=== PATIENT | female | born 1970 | race Caucasian/White ===

== ENCOUNTER 2023-03-02 20:43 | Outpatient (OUT) | payer OTHER, SELFPAY ==
[2023-03-05 22:06] LABS: Age Gdln ACOG Testing Note (.); HPV Aptima Negative (Negative); IGP, Aptima HPV, rfx 16/18,45 Note (.)
== END 2023-03-02 20:44 | disposition home or self-care (01) ==
PROVIDERS: Visit Provider Obstetrics & Gynecology
DX: Z12.4 Encounter for screening for malignant neoplasm of cervix (principal)
CPT/HCPCS: 87624; G0145

== ENCOUNTER 2023-06-25 11:12 | Outpatient (OUT) | payer OTHER, SELFPAY ==
--- NOTE | 2023-06-25 11:19 | ECG_ITS ---
[facility] Test Date: 2023-06-25 Pat Name: LONNIE CARRERA Department: Room: - Gender: Female [employer]: : 1970 Requested By: ORIANA BONE Order Number: [id number] Reading MD: RENETTA HARO Measurements Intervals [place] Rate: 69 P: 46 VA: 172 QRS: -11 QRSD: 97 T: 29 QT: 374 QTc: 402 Interpretive Statements SINUS RHYTHM No previous ECG available for comparison Electronically Signed On 06-30-2023 6:53:17 EST by RENETTA HARO
== END 2023-06-25 11:13 | disposition home or self-care (01) ==
LOC: PST 11:14
PROVIDERS: Visit Provider Obstetrics & Gynecology
DX: Z01.810 Encounter for preprocedural cardiovascular examination (principal); R93.89 Abnormal findings on diagnostic imaging of other specified body structures; N93.9 Abnormal uterine and vaginal bleeding, unspecified
CPT/HCPCS: 93005

== ENCOUNTER 2023-07-02 07:57 | Day surgery (SDC) | payer OTHER, SELFPAY ==
[2023-06-25 11:47] VITALS: BP 128/75; PULSE 80; RESP 16; TEMP 36.4; O2SAT 98; BMI 29.0
[2023-07-02] VITALS (9 sets, daily range): BP systolic 97–128; BP diastolic 52–83; PULSE 76–102; RESP 14–19; TEMP 36.2–36.4; O2SAT 95–100; BMI 28.9
[2023-07-02 08:10] LABS: Basophils Absolute Auto 0.1 10^3/uL (0.0-0.1); Basophils Percent Auto 1.9 % (0.2-2.0); Eosinophils Absolute Auto 0.2 10^3/uL (0.0-0.7); Eosinophils Percent Auto 2.9 % (0.9-7.0); Hemoglobin 13.5 g/dL (12.0-16.0); Immature Granulocytes Abs Auto 0.01 10^3/uL (0.00-0.03); Immature Granulocytes Pct Auto 0.2 % (0.0-0.5); Lymphocytes Absolute Auto 1.5 10^3/uL (1.2-3.8); Lymphocytes Percent Auto 22.8 % (20.5-60.0); Mean Corpuscular HGB Conc 32.9 g/dL (29.9-35.2); Mean Corpuscular Hemoglobin 30.7 pg (26.7-34.0); Mean Corpuscular Volume 93.2 fL (81.0-99.0); Mean Platelet Volume 9.5 fL (9.5-13.5); Monocytes Absolute Auto 0.6 10^3/uL (0.3-0.8); Monocytes Percent Auto 9.5 % (1.7-12.0); Neutrophils Absolute Auto 4.1 10^3/uL (1.4-6.5); Neutrophils Percent Auto 62.7 % (43.0-75.0); Platelet Count 363 10^3/uL (150-450); Red Cell Distribution Width 12.6 % (11.0-15.0); White Blood Count 6.5 10^3/uL (4.0-11.0)
[2023-07-02] MEDS: LACTATED RINGER'S SOLUTION 1,000 ML 50 ML IV ×2 (08:23→10:52)
[2023-07-02 08:33] LABS: HCG Quantitative 8 mIU/mL
--- NOTE | 2023-07-02 10:03 | PC.NURSE ---
Dr. Millan aware of Quant level. Has been elevated in past for other surgeries per patient.
--- NOTE | 2023-07-02 10:50 | PM.ONB ---
Brief Operative Note Date of procedure: 07/02/23 Pre-op diagnosis: pmb Post-op diagnosis: same as pre-op Procedure: NAME OF PROCEDURE: [ D&c hysteroscopy] PROCEDURE: The patient was taken back to the Operating Room where she was prepped and draped in normal sterile fashion after being placed under general anesthesia without difficulty. She was also placed in the dorsal lithotomy position. A weighted speculum was placed in the patient?s vagina. The anterior lip of the cervix was identified and grasped with a single tooth tenaculum. The patient?s uterus was then sounded roughly to [? 8] cm. The patient was then gently dilated using Hegar dilators. The hysteroscope was passed through the patient?s cervix into the uterus. Both ostia were identified. fluffy appearing endometrium. No gross evidence of malignancy, no gross evidence of polyps or fibroids. . At that point, gentle curettage was performed until a gritty texture was noted. The endometrial curettings were sent out to pathology. The single tooth tenaculum was then removed from the patient's anterior lip of the cervix where excellent hemostasis was noted. All instruments were removed from the patient?s vagina. The patient tolerated the procedure well. Sponge, lap and needle counts were correct times two. The patient was taken to the Recovery Room in stable condition.Room in stable condition. Anesthesia: ANGELES Surgeon: Arley Millan Estimated blood loss (mL): 5 Pathology: other (endometrial currettings) Condition: stable Disposition: PACU
--- NOTE | 2023-07-02 12:12 | PC.NURSE ---
pt up to bathroom with minimal assistance,voids without difficulty.
== END 2023-07-02 12:20 | disposition home or self-care (01) ==
PROVIDERS: Visit Provider Obstetrics & Gynecology
PROC: (CPT 58558; principal; 2023-07-02 09:20)
DX: R93.89 Abnormal findings on diagnostic imaging of other specified body structures (principal); N93.9 Abnormal uterine and vaginal bleeding, unspecified; M79.7 Fibromyalgia; E78.00 Pure hypercholesterolemia, unspecified
CPT/HCPCS: 58558; 36415; 84702; 85025; 88305; J2704

== ENCOUNTER 2024-02-07 07:19 | Outpatient (OUT) | payer OTHER, SELFPAY ==
--- NOTE | 2024-02-07 07:23 | MM_ITS ---
Patient Name: LONNIE CARRERA MR#: [id number] : 1970 Exam Date: 02/07/2024 Ordering Doctor: DR Arley Millan . RADIOLOGY REPORT PROCEDURE: MM TOMOSYNTHESIS SCREENING BI COMPARISON: MG MAMM SCREEN 3D WILEY CAD, 01/20/2023. MG MAMM SCREEN 3D WILEY CAD, 01/06/2022. MG MAMM SCREEN 3D WILEY CAD, 12/10/2020. MG MAMM WILEY SCRN W CAD DIG, 05/09/2013. INDICATIONS: Screening mammogram Calculator Name NCI Breast Cancer Risk Assessment Tool 5 Year Breast Cancer Risk 0.80% Lifetime Breast Cancer Risk 5.50% Personal Breast Cancer No Personal Ovarian Cancer No Treatments None Family Cancers Father with lymphoma cancer at age 70. LOCATION: [facility] BREAST COMPOSITION: The breasts are heterogeneously dense,which may obscure small masses. FINDINGS: DIAGNOSTIC CATEGORY 1--NEGATIVE. RIGHT BREAST: No significant suspicious finding. No significant change has occurred. LEFT BREAST: No significant suspicious finding. No significant change has occurred. RECOMMENDATIONS: ROUTINE MAMMOGRAM AND CLINICAL EVALUATION IN 12 MONTHS. PLEASE NOTE: A NORMAL MAMMOGRAM DOES NOT EXCLUDE THE POSSIBILITY OF BREAST CANCER. A CLINICALLY SUSPICIOUS PALPABLE LUMP SHOULD BE BIOPSIED. Dictated by: Xavier Davison M.D. on 02/07/2024 at 14:10 Approved by: Xavier Davison M.D. on 02/07/2024 at 14:17
--- OUTSIDE RECORDS SUMMARY | 2024-02-07 07:23 | XMS_ITS ---
Patient Summarization (C-CDA 2.1 CCD) Created on: February 07, 2024 LONNIE CARRERA : 1970 Sex: Female Author Organization Sample organization Care Team Providers Care Outbound Call Center Representative Name Role Phone Alfonso Pinto Primary Care Provider Elvis Grayson Attending Unavailable SMITHA ., DR GASTELUM Attending Unavailable SMITHA ., DR GASTELUM Consulting Unavailable SMITHA ., DR GASTELUM Admitting Unavailable SMITHA ., DR GASTELUM Admitting Unavailable MUSCOGEE, DR CAMPBELL Primary Care Unavailable SMITHA ., DR GASTELUM Attending Unavailable SMITHA ., DR GASTELUM Consulting Unavailable MICHELLE VAUGHN Attending Unavailable BETTY URENA Attending Unavailable Allergies Allergy Classification Reported Allergen(s) Allergy Type Date of Onset Reaction(s) Facility Macrolides (antibiotic) (1 source) Clarithromycin Drug Allergy 12-02-19 14 Intolerance [facility] Sulfonamides (antibiotic) (1 source) Sulfonamides (Antibiotic) Drug Allergy 12-02-19 14 Other: See Comments [facility] (2 sources) Clarithromycin; Translations: [Biaxin] Drug Allergy [facility] (1 source) Sulfonamides (Antibiotic); Translations: [sulfa drugs] Propensity to adverse reactions (disorder) [facility] (1 source) topiramate; Translations: [Topamax] Drug Allergy [facility] (1 source) Sulfonamides (Antibiotic) Drug allergy (disorder) 06-27-20 15 [facility] Encounters Encounter Date Encounter Type Care Provider Facility Start: 01-31-2024 End: 01-31-2024 ambulatory BETTY URENA Not Available Start: 07-14-2023 End: 07-14-2023 ambulatory MICHELLE VAUGHN Not Available Start: 01-20-[address] ORIANA BONE . Facili ty:[facility] Start: 08-04-2022 End: 08-04-2022 Emergency department patient visit Elvis Grayson [place] [place]: 02-17-2022 End: 02-17-[address] ORIANA BONE . Facility: Start: 08-21-2021 ambulatory Elvis Grayson Facility:[facility] Start: 05-09-2014 End: 05-09-2014 Telephone encounter Sushil Thorpe (Hist) Joann Work Phone: Neurology Medications Completed/Discontinued Medications Medication Drug Class(es) Dates Sig (Normalized) Sig (Original) Calcium Carbonate (1 source) CALCIUM CARBONAT E (CALCIUM 600 ORAL) Take by mouth once daily. 0 Active Comment on above: Take by mouth once d aily. cholecalciferol 0.025 mg oral capsule (1 source) Vitamin D take 1 capsule by mouth once daily Cholecalciferol, Vitamin D3, (VITAMIN D) 1,000 unit cap Take 1,000 Units by mouth once daily. 0 Active Comment on above: Take 1,000 Units by mouth once daily. cyclobenzaprine hydrochloride 10 mg oral tablet (1 source) Muscle Relaxant cyclobenzaprine 10 mg tablet Take 10 mg by mouth as needed. 0 Active Comment on above: Take 10 mg by mouth as needed. ibuprofen 800 mg oral tablet (1 source) Nonsteroidal Anti-inflammatory Drug take 1 tablet by mouth once daily ibuprofen 800 mg tablet Take 800 mg by mouth once daily. 0 Active Comment on above: Take 800 mg by mouth once daily. loratadine 10 mg oral tablet (1 source) take 1 tablet by mouth once daily loratadine (CLARITIN) 10 mg tablet Take 10 mg by mouth once daily. 0 Active Comment on above: Take 10 mg by mouth once daily. Magnesium (1 source) Magnesium 500 mg tab Take by mouth twice daily. 0 Active Comment on above: Take by mouth twice daily. multivitamin tablet (1 source) multivitamin tab let Take 1 tablet by mouth once daily. Woman's One A Day once daily 0 Active Comment on above: Take 1 tablet by vania th once daily. Woman's One A Day once daily [place]-3 Fatty Acids-Vitamin E (FISH OIL) 1,000 mg cap (1 source) take 1 capsule by mouth twice daily [place]-3 Fatty Acids-Vitamin E (FISH OIL) 1,000 mg cap Take 1 capsule by mouth twice daily. 0 Active Comment on above: Take 1 capsule by [facility] twice daily. potassium gluconate 2.5 meq oral tablet (1 source) Potassium 99 mg tab Take by mouth once daily. Takes two once daily 0 Active Comment on above: Take by mouth once d aily. Takes two once daily VITAMIN B COMPLEX & VIT C NO.4 (SUPER B COMPLEX + C ORAL) (1 source) VITAMIN B COMPLE X & VIT C NO.4 (SUPER B COMPLEX + C ORAL) Take by mouth once daily. 0 Active Comment on above: Take by mouth once d aily. Payers Date Payer Category Payer Unknown 2013 Unknown HOSPITAL/MEDICAL GENERIC MEDICAL GENERIC [id number] 2013-2014 Indemnity [id number] 2013 Unknown MMO [employer]ZZM[employer] SUPER MED PLUS [id number] 2013-2019 PPO [id number] 1970 Unknown [id number] 1970 Unknown [id number] 1970 Unknown [id number] 1970 Unknown [id number] 1970 Unknown [id number] 1970 Unknown [id number] 1961 Private Health Insurance [id number] Plan of Treatment Date Care Activity Detail Author Start: 04-23-2021 Influenza vaccination INFLUENZA (Sea son Ended) [facility] Start: 2018 Screening for malign ant neoplasm of colon [facility] Start: 2018 SHINGRIX VACCINE (1 of 2) CHRISTIE GRIX VACCINE (1 of 2) [facility] Start: 2013 [facility] Start: 2013 LIPID SCREEN LIPID SCREEN [facility] Start: 2008 Mammography MAMMOGRAM [facility] Start: 1998 HPV TESTING HPV TESTING [facility] Start: 1989 PAP TESTING PAP TESTING [facility] Start: 1987 Urine microalbumin profile DTAP,TDAP ,TD (1 - Tdap) [facility] Start: 1986 HEPATITIS C SCREENING HEPATITIS C SC REENING [facility] Start: 1986 HIV SCREENING HIV SCREENING [facility] Start: 1980 Adult depression scr eening assessment DEPRESSION SCREENING [facility] Problems Problem Classification Problem Date Documented Date Episodic/Chronic Immunizations and screening for infectious disease (1 source) Encounter for screening for human papillomavirus (HPV); Translations: [ENC SCREENING HUMAN PAPILLOMAVIRUS] Onset: 02-19-2022 Episodic Other connective tissue disease (1 source) Fibromyalgia; Translations: [Fibromyalgia] Onset: 12-01-2013 12-01-2013 Episodic Other screening for suspected conditions (not mental disorders or infectious disease) (4 sources) Encounter for screening for malignant neoplasm of cervix; Translations: [ENC SCREENING MALIG NEOPLASM CERV] Onset: 02-17-2022 Episodic Results Test Name Value Interpretation Reference Range Facility MG MAMM SCREEN 3D WILEY CADon 01-20-2023 MG MAMM SCREEN 3D WILEY CAD Patient: LONNIE CARRERA Exam Date: 01/20/2023 : 1970 Gender:F Ordering : DR ORIANA BONE . Admission #: [id number] Family : Order #: [id number] CLICK HERE TO VIEW EXAM RADIOLOGY REPORT PROCEDURE: MAMMOGRAM SCREENING 3D BILATERAL CAD COMPARISON: MG MAMM SCREEN 3D WILEY CAD, 01/06/2022. MG MAMM SCREEN 3D WILEY CAD, 12/10/2020. MG MAMM SCREEN WILEY W CAD, 10/17/2019. DIGITIZED_MAMMO, 01/22/2009. INDICATIONS: Screening mammography Calculator Name NCI Breast Cancer Risk Assessment Tool 5 Year Breast Cancer Risk 0.70% Lifetime Breast Cancer Risk 5.60% Personal Breast Cancer No Personal Ovarian Cancer No Treatments None Family Cancers Father with lymphoma cancer at age 70. LOCATION: [facility] BREAST COMPOSITION: Heterogeneously dense,which may obscure small masses. FINDINGS: DIAGNOSTIC CATEGORY 1--NEGATIVE. RIGHT BREAST: No significant suspicious finding. No significant change has occurred. LEFT BREAST: No significant suspicious finding. No significant change has occurred. RECOMMENDATIONS: ROUTINE MAMMOGRAM AND CLINICAL EVALUATION IN 12 MONTHS. PLEASE NOTE: A NORMAL MAMMOGRAM DOES NOT EXCLUDE THE POSSIBILITY OF BREAST CANCER. A CLINICALLY SUSPICIOUS PALPABLE LUMP SHOULD BE BIOPSIED. Dictated by: Xavier Davison M.D. on 01/20/2023 at 13:56 Approved by: Xavier Davison M.D. on 01/20/2023 at 14:00 Normal [facility] C Urineon 08-06-2022 Bacteria identified Cx Nom (U) Microbiology PROCEDURE: Urine Culture [R1] SOURCE: U CleanCatch BODY SITE: COLLECTED DATE/TIME: 08/04/2022 10:55 EST RECEIVED DATE/TIME: 08/04/2022 11:42 EST START DATE/TIME: 08/04/2022 11:42 EST FREE TEXT SOURCE: Farrukh CABRERA, [place]. Farrukh CABRERA, [place] Thor[place]. FINAL REPORTS Final Report [] Verified Date/Time: 08/06/2022 13:06 EST >100,000 cfu/ml Enterococcus faecalis SUSCEPTIBILITY RESULTS LEGEND: S=Susceptible, N/R=Not Reported, Blank=Data not available, or drug not advisable or tested, I=Intermediate, ESBL=Extended spectrum beta-lactamase, R=Resistant, TFG=Thymidine-depende nt strain, [place]=Beta-lactamase positive, YAMILEX=mcg/m;(mg/L), S*=Predicted susceptible interp, R*=Predicted resistant interp Entfaeca Antibiotic YAMILEX Dilutn YAMILEX Interp Ampicillin <=2 S Ciprofloxacin <=1 S Daptomycin <=1 S Levofloxacin <=1 S Linezolid <=2 S Nitrofurantoin <=32 S Penicillin 2 S Rifampin <=1 S Tetracycline >8 R Vancomycin 2 S Performing Locations R1: This test was performed at: [facility], [address] [place] [address], [facility]- , , [facility] Comment on above: Performed By: #### 1 [id number], [id number] ####[place] [address] Coding Summary.on 08-06-2022 Coding Summary. [id number] G h0bWw+PGhlYWQ+CQ1FJPB oU08pkCTppA7CG0uIVB0T MBGJRGVBLL8EVG4vjOU1D JcdJ4OhxlVf SbkufRPmSV47JOx8ONY4y IkeZPsgzN2geWHtU1g2Rd GgGS19cB91QBjoYRWlFiQ 3LjZpbjsgbWFy M5ltOxFvxSHjApi+PHRhY mxlIHdpZHRoPScxMDAlJy YstGkaNZ4eQo7xXXJrBYQ vbGxhcHNlOiBj j2zjOHNqUGcoGY9ciBydG 0TdxLG1IMOmz4g4Vz87lR I+ZFHsOOA9sTkwGOjml85 8YjNpp4ljUSL2 rLEvSZciOWQ6U20ay9W1S HIhKLOsSXO5dIC1wU4tgS azftynF0SacKGaRfV0ZET 1iDUbxA1dwGgl ybacfJ2vJwm+O12JPT9CP QYDOJ5OPqw4O7NuXzhbbQ I+PE98IKYkXG21fDFhzDK ie1llyIc6GwVm WAFrZHV8aWtrCJjrl8OpE GSuI01crEWax2A2OJUaqZ mdoZAiLeCarBV8xH0vKRk nekxiy4zyvbgf Xnaxq9gebd47rX92D15sO VrgAXZiROW8YRKzFSQtsN exmf6zrB9rEd5+VLznx8e ut5ybaXm8JkUj IMJxqgEynGjlSGA6h6BwS e70D5EjlMffh1PeSng4ut 65fFYvk6N6pKX6RDqiBJY ruB5kGGocTzG8 OSOfUwMsxZ24aKVmDFhbF o0ebLkasDvvOL3yHCVoke seYGOntJ0rCWEtoKLpgSz tLW2jIDQxqsip t418FpPaRQK5EWWjxZIwA 3GreH3bQcNjZGOhFENpK4 OswPDjMNqtN985OLvyXoN 5HQXxunUzU6Iv HCNxxLheHnM6d7P9Uf9Wo 5AsoeevCQQ7NBpyRMZgBf E1GpRcRuB0S4XwGot5NJD vdOzlAZ8lA6Ba RXWdxfhhmpuxmID0BKNkW QAjpP09yQHtMDonCx8wh7 C8b049ASCfEUJezP61Mv8 udDogMTBwdCBU xO3qmdhff1xwqcvjCwKnU LMyIQv8XOv1NKIprLrfIw HaRLK2CyC7OMH0oITepS0 rlSfcxhpljQ2i Oyc+F80gnJ8oNPC3CEZ6t nefOAFpdsWcYP22LH71R4 RyPjwvdGFibGU+PGRpdiB xdEwiMK4lNrSa i8azh4MvAVisP6TvBFKoQ QkaApx5BXFeSWT0sAX4bT 2eRTAgMOrru9I8hBN3Y4N rrbTesb6bk9wn KFOoVVbkP77btBFzq7B5Q TEufGS2SOSzoFloQzQedV 93Oyc+BAKzsGhup4UzVlh dx9cnw5jlqPu7 WhRhIZHmccUjuLofTCS2x 9HnEz30J60bFFzjQXTpYD UiDRYzSUJhuXlbge8cyW5 wIi8+PGNvbCB3 rZQ8rR7iUGDcHgX7WZutY 103SqFuwWVlKmgqp9sdx5 gvrVc5AcDtGBMhfpGxfAy nJHE9e4QwMq83 U80oGNohQOYbZLIcSOTzS TQtxRyfak0ocU7sYm2+PC 3hd8uyof08fQ35gGO+PHR oWUD7wGtvABjk KARgtW2rKHxsNbU6BUCvO tWxtM06cNPoEEjfNv0fqM dusVcvCW8fZXHazboic47 7XzOtq0dxMQZf oJQzZRbdFJX4G97uh9F5R XQxETGkVKV5iWJ9iL0exV lnbjogbGVmdDsgdmVydGl yTAteDWbnZ992 IHRvcDsnPlBhdGllbnQgT yAcYAi3L2McJef7TRCjoM naCW8wwIRcTYcaNo8brQl haPdfKT3kDRXc cflsf025CnAsk6caPSPpk FOjABasPZU1G35tv8C3NW KiIHSzYJS7xEQ2mN3ugQm nbjogbGVmdDsg gxUvyCmgEMlhRClwV209A HRvcDsnPkJpcnRoIERhdG S4FM78WZ66mAAdw3O9bOY 9U6XzZOCbfvrs qpxrjCG3DFYbQCOjcQ60T d1jhGnjRc6iWAJmSEK8CF XxtKOuZ2JldL8xDgWcGLA bDCPsM0UvrSDp XWoaP256DVpzOuK2EHEdw lHqD4NdHQNeyLrfNtA4c1 B6Ez4AE9Y2VC87CB70oEW sq2E7dDL4E4Ac VMJwpqrundlemRI6MZGpV KYxiV51Vy4lzKvkHc3zTV DvOZD5YPBmxOByN6FdlV1 yOiAjMDAwMDAw A9IuxLSyHNohM689DRnvA gM0GPEhrdKmY3GeWJWreH ycHlD2h1I0Rv8KSLf0OF6 8YK35fZVxp6R9 mFU7M6WeJZKpgucrwsqkh BQ7CFPdRKHnnK23Kq3hpV yiYb9wBALtYZZ3IKHivJM pK8TacD1hFeLf OLKgNUQlS2WfpZXuISvcP 080PPtnRoD2EATjfnPbL5 YwOABndThoMhF9u4X0St4 HDBVbKL80OJH9 uEN1OH59KP16E8HcSokss GFibGU+PHRhYmxlIHdpZH RoPScxMDAlJyBzdHlsZT0 pUn0jZCGaRGAv fTrkoKJjBpAis6hgXZBoK IyjCG0xyVdjB1JzpVJ3PO Qvt5o8Ox76U58pG9HgmEV +PJNclJU7dHW4 fQ3mMeOhHhV7DQdgN386L fMocYPoGwfcs4ith5baiJ d5LhL9ADQygtAlhLgrCSR 6s8ZuCf77H84z IHdpZHRoPSIxNSUiIHZhb Boonf0gkN9cWg0+PGNvbC K0uZB0cF8qDhBxYcK3MFt vH179NcJshBUf Zxjpi0tmd6bpyDz4CmMyS DUqcyQrdZfbUIH5w6AjGc 29A3LvbYwnc2EnZly8ae1 9bKZeq0G8gZQ3 Z8PbYTEpovsaiPQazPwpS H0aVHGalkmlCTJxpS5wTH QuA2p6NwUsUeA1FRqtC6I vlwM3CAHixYEw IKwmSNF7N47hj3O2JVOeQ EUgWGF9tFS0qL6crTzdoz ogbGVmdDsgdmVydGljYWw mAHfpN654MMCj mGvfHYQtzL9zOMJpiIHqv EmfPR7dBEAcpuzhSicRKb 5FTExPLCBTSEVMTEVZIEw 3Q5QnDda3WWFo qXnoYG9uqFNnZWemUw1dk EyqyZnpUB1jJGXegghlHY YbpH6zNIQxcMJtlUrwRX1 nTCFinttry896 HlNbJLJ7JFCkoUVkU6Fkr U8zTjSzTKUtHNKtR4MbnL JrZOrlL197VJuaLqE9XQY dqmYxR8LxRWTw uAdcDkJ8r1Y6Cl6hHT4xX M3zNZT7LC00EQ52uIBgs2 F7hXK7B4ExPFDkrnokocv qnXY7VQNeSCFh aD94nXElFIkyTt8pn4C9m 332ZGSfCEIucZ25Pg6dhH xjNIJtpQPJjD9jhjdcg4x vcjogIzAwMDAw UAv0SPb5LPQjaIrbFsGjS AO0VfQ4GSM3wXSmqI7ljZ hjdmyjpJ4wNxn+NTQgWWV rppS1M2GaDwj6 PUYwhUheZO6sdSQvAXucD g8vdVkcoNobHX0mXNVuvf npZNFexK5gVKFcfTLyfVd pAL4tQUCgynaf d166UkCyNPR3GYNcdKVzL 0QpzG2tPwZmNAGvSKJpP2 IbzMWbRSgvO103AEmgYlK 7HXJzotXwW7Ru KXVbiFktIfG6d4D4Hk7DU U6wlCA2E5CcSss0JAXhaF vcOZ4qqVAmNAexQb9yrQb trQjdTW5vHOIc yqrxCRXhoT4yCIYpaWRuc KqxOZ8tMQNnsracj856Jt FcJEL1JAPjfBJvH1DawA1 yOiAjMDAwMDAw B3MsiIYkNHqhC780QVmtM lU6LQHyyqVrQ1FwCBWutQ ztSeL6n6B6Dq4XxVOuC7U dF1f9X3BtDijv dHI+OW00WFOpIF30jKRie VDeo7xgqAt5VzOzPBJpCX G3uXbuAHcmz2WvJQDlI81 feKSbg0Q5RBKz pMoxbPXvSqUngEP1yQ3uB Vqezheys5djnxxfZycbm8 eoqp59wT96H41iBWquTMS oPSIzMCUiIHZh rTtpkp7xlZ6eAl5+PGNvb CM7oIS8nW8pUqMdUcB1XX yjK266RhEcyHEcVklwv5r zn3iggSv3EoHe KVGeicLptOauEJN8x1BaE n58M64rWMmeLZQeOETjKD ZtJJKasCpofu8lkN6jWo2 +NS6py0fnvw31 yQ53nIC+VWGzXNJ4oTdbF YbwIEAibL6lKBtcGcB4XM DgHsTetH88zIQjZPpvZm8 ulJkcdXfuLT4m MUDfwpxuj126IzTcw3tqH LCdlECuOJjcMGC9V46bp3 W2HWAyLSXwDRB2lPO6hH3 hbGlnbjogbGVm dDsgdmVydGljYWwtYWxpZ 872VFOtzMvpAmRhxGDqI4 sgvcKRNS3zTkpjzNL+PHR mXXZ7tPraEVby CQMlwE2mWIRtI3e5FiNjX bN1OOeyC5YwdpV4NFKzoC FqUHJryMTRwT5bsjnpa8u vcjogIzAwMDAw VLs9TOr4JOEneQiePrWrS PW7KxW7TFK2cIJoaK9ssZ kxvurbjU3aMue+RklOOjw vdGQ+PHRkIHN0 sRabBSqyCCEuqW1bVOPjH 9v8VqHeJwU1ZUyqZ2Nbgy M7KJCrfIJmNSBeyPQGkD0 vpckov8raypxn GrFwXJTnCUe4XEd1ZQChp FgrHhNwBDH2YhO3TJW9mT EduC7uyFkbxxkusS9iSva +TVJOOjwvdGQ+ UYMtYKN9zQvqQTgoRWOji Z0yHUCzV5j6VwEzJmG2JC dbZ2TiehZ9IWYqtWSjMDK jdLGWhK5dbaru m8skfcmnFuHvSSHaNEd9K Gd5KSRhfUmdLzTwTCI3Wj L6BWE9jWOvnE3hhZxasxw iyG3aBfq+UGF5 QWX8UZ50DM51P6HqFtosw GFibGU+PHRhYmxlIHdpZH RoPScxMDAlJyBzdHlsZT0 oUc1fYZPgIKLw bGxh (more content not included)... Normal [facility] ED Note-Physicianon 08-05-20 ED Note-Physician Basic Information Time Seen: Chris Fallon DO 08/04/2022 09:36 Chief Complaint pt rpeort abdpain on and off for a month, but states she has had increasing pin. denies n/v/d but reports constipation. History of Present Illness 52-year-old female to the emergency department chief complaint of abdominal pain and lower cramping has been ongoing for the last month. She denies any nausea, vomiting diarrhea. She denies any fever, sweats, chills. She is eating without difficulty. She reports that she has been having intermittent bowel movements going as long as 5 days without a bowel movement. She denies any dysuria urgency. She is otherwise at baseline health. Review of Systems A 10 point review of systems is negative except as noted above. Medical and Surgical History: Reviewed and noted Social history: Lives at home Tobacco: Denies Physical Exam Vitals & Measurements T: 36.6 ?C(Tympanic) HR: 85(Monitored) RR: 16 BP: 129/78 SpO2: 99% HT: 162 cm WT: 80 kg BMI: 30.48 VITALS: I have reviewed the triage vital signs. GENERAL: Well developed, well appearing adult in no acute distress. NEURO: Alert and oriented. Moves all extremities. Face is symmetric and expressive. EYES: PERRL. No scleral icterus or conjunctival injection. No discharge. HENT: Normocephalic, atraumatic. Hearing is grossly intact. Nares grossly patent and without discharge. Mucous membranes moist. NECK: No JVD. Patient moves neck without restriction. CARDIO: Rhythm regular. Normal rate. No murmur, rub, or gallop. Pulses equal bilaterally in the upper and lower extremity. No lower extremity edema. PULM: Lungs clear to auscultation in all [place]. No wheezes, rales, or rhonchi. No conversational dyspnea. No splinting, stridor, or accessory muscle use. GI/: Abdomen is soft and non-tender. Mild distention. Normoactive bowel sounds. EXTREMITIES: Symmetric muscle bulk. No joint swelling. No clubbing, cyanosis, or deformity. SKIN: Warm and dry. Normal turgor. No rash or lesions appreciated. PSYCH: Mood, affect, and interaction is appropriate to the setting. Medical Decision Making 52-year-old female to the emergency department chief complaint of lower abdominal cramping on and off for the last month. Constipation for the last few days. Vital stable, patient is afebrile. Basic labs ordered. She declines pain medication. CT scan ordered. Lab work reviewed and unremarkable. CT scan consistent with constipation. Possible UTI. Will treat with MiraLAX and Macrobid. Follow-up with PCP. Return precaution discussed. Patient was discharged home. Assessment/Plan Acute UTI (N39.0: Urinary tract infection, site not specified) Constipation (K59.00: Constipation, unspecified) Disposition Plan Patient Discharge Condition Stable Discharge Disposition Home Discharge Prescription List Prescriptions No active prescription medications Follow-up With When Contact Information Sarah Pickard In 3 days 08/07/2022 EST [address] [facility], [address] [place] [phone] (1) Additional Instructions: Call the office of your primary care doctor to arrange for follow-up within the above-stated timeframe. Follow-up with your primary care doctor about this ED visit. You should review your labs, imaging, and diagnoses from this ED visit with your primary care physician. If you were prescribed medications you should discuss possible side-effects and drug interactions with your pharmacist. Call 911 or go to the nearest Emergency Department if you develop any new or worsening symptoms. Seek immediate medical attention if you develop: worsening abdominal pain, new or worsening nausea, new or worsening vomiting, new or worsening diarrhea, chest pain, shortness of breath, pain with urination, problems urinating, fever, chills, weakness, or any new or worsening symptoms. Patient Education Urinary Tract Infection, Adult Constipation, Adult Problem List/Past Medical History Ongoing Fibromyalgia MIGRAINE Historical high cholesterol Medications Inpatient No active inpatient medications Home Calcium 600+D, Oral, TID Cymbalta 60 mg Cap-DR, 60 mg, Oral, Daily ibuprofen 800 mg Tab, 800 mg= 1 tab(s), Oral, TID Lofibra 160 mg oral tablet, 160 mg= 1 tab(s), Oral, Daily magnesium 100 mg oral tablet Miralax 3350 17 gram packet, 17 gm, Oral, Daily Multivitamins and Minerals nitrofurantoin macrocrystals-monohyd rate 100 mg Cap, 100 mg= 1 cap(s), Oral, BID Vitamin D3, Oral Allergies Biaxin Topamax Lab Results No qualifying data available. Diagnostic Results No qualifying data available. Normal [facility] Comment on above: Result Comment: Elec tronically Signed By: Chris Fallon DO.br\Date and Time Signed: 08/05/22 19:48 EST Auto Diffon 08-04-2022 Basophils/100 WBC (Bld) 1.4 % Normal 0.0-2.0 [facility] Comment on above: Order Comment: Order Added by Discern Expert. Performed By: #### 2 [id number] #### [facility] [address] [place] [id number] Basophils/Leukocyte s Auto (Bld) [Pure # fraction] 0.1 E9/L Normal 0.0-0.2 [facility] Comment on above: Order Comment: Order Added by Discern Expert. Performed By: #### 2 [id number] #### [facility] [address] [place] [id number] Eosinophils/100 WBC (Bld) 3.8 % Normal 0.0-8.0 [facility] Comment on above: Order Comment: Order Added by Discern Expert. Performed By: #### 2 [id number] #### [facility] [address] [place] [address] [id number] Eosinophils/Leukocy kae Auto (Bld) [Pure # fraction] 0.3 E9/L Normal 0.0-0.5 [facility] Comment on above: Order Comment: Order Added by Discern Expert. Performed By: #### 2 [id number] #### [facility] [address] [place] [address] 11071 Lymphocytes/100 WBC (Bld) 26.4 % Normal 14.0-50.0 [facility] Comment on above: Order Comment: Order Added by Discern Expert. Performed By: #### 2 [id number], 6169339, 5328995, 4765213, 8927050, [id number] #### [facility] [address] [place] [address] 54171 Lymphocytes/Leukocy kae Auto (Bld) [Pure # fraction] 2.2 E9/L Normal 1.0-4.0 [facility] Comment on above: Order Comment: Order Added by Discern Expert. Performed By: #### 2 307395, 6146274, 3777414, 3104672, 3484156, [id number] #### [facility] [address] [place] [address] Monocytes/100 WBC (Bld) 8.5 % Normal 4.0-14.0 [facility] Comment on above: Order Comment: Order Added by Discern Expert. Performed By: #### 2 352210, 4941065, 9386306, 2948376, 9460154, [id number] #### [facility] [address] [place] [address] Monocytes/Leukocyte s Auto (Bld) [Pure # fraction] 0.7 E9/L Normal 0.2-1.0 [facility] Comment on above: Order Comment: Order Added by Discern Expert. Performed By: #### 2 263511, 3291477, 9878708, 9469598, 4871799, [id number] #### [facility] [address] [place] [address]250 Neutrophils/100 WBC (Bld) 59.9 % Normal 36.0-75.0 [facility] Comment on above: Order Comment: Order Added by Discern Expert. Performed By: #### 2 797889, 1865746, 3006929, 5846634, 7501185, [id number] #### [facility] [address] [place] [address]21 Neutrophils/Leukocy kae Auto (Bld) [Pure # fraction] 4.9 E9/L Normal 2.0-7.5 [facility] Comment on above: Order Comment: Order Added by Discern Expert. Performed By: #### 2 302330, 8590731, 8610716, 0593156, 9499477, [id number] #### [facility] [address] [place] [address] BMPon 08-04-2022 Anion gap [Moles/Vol] 13 mmol/L Normal 6-16 [facility] Comment on above: Performed By: #### 2 563852, 6655608, 4023460, 4848328, 5222117, [id number] #### [facility] [address] [place] [address] Calcium [Mass/Vol] 9.2 mg/dL Normal 8.9-11.1 [facility] Comment on above: Performed By: #### 2 023508, 4483734, 6766427, 5725627, 7585997, 49982754 #### [facility] [address] [place] [address] Chloride [Moles/Vol] 100 mmol/L Low 101-111 [facility] Comment on above: Performed By: #### 2 717437, 8725887, 5716194, 1688430, 5574416, [id number] #### [facility] [address] [place] [address] CO2 [Moles/Vol] 26 mmol/L Normal 21-31 [facility] Comment on above: Performed By: #### 2 827462, 5043468, 4802080, 2320959, 5471900, 41251042 #### [facility] [address] [place] [address] Creatinine [Mass/Vol] 0.8 mg/dL Normal 0.5-1.3 [facility] Comment on above: Performed By: #### 2 717311, 6344549, 2634990, 1782316, 8811740, [id number] #### [facility] [address] [place] [address] Glucose [Mass/Vol] 113 mg/dL Normal 55-199 [facility] Comment on above: Result Comment: If t his glucose result represents a fasting glucose, interpretation should refer to the following reference range: 55-99 mg/dL Performed By: #### 2 149994, 8590310, 7114454, 7268849, 2807766, [id number] #### [facility] [address] [place] [address] Potassium [Moles/Vol] 3.7 mmol/L Normal 3.5-5.3 [facility] Comment on above: Performed By: #### 2 228717, 6055410, 1598500, 3091686, 7473813, 57107895 #### [facility] [address] [place] [address] Sodium [Moles/Vol] 135 mmol/L Normal 135-145 [facility] Comment on above: Performed By: #### 2 144616, 1698224, 6632928, 4588723, 0225546, 14862705 #### [facility] [address] [place] [address] Urea nitrogen [Mass/Vol] 19 mg/dL Normal 5-21 [facility] Comment on above: Performed By: #### 2 898049, 4087879, 2482954, 7510424, 0228967, 90143475 #### [facility] [address] [place] [address] Urea nitrogen/Creatinine [Mass ratio] 24 No Units High 10-20 [facility] Comment on above: Performed By: #### 2 175750, 5710610, 0408995, 5470252, 4667486, 06073719 #### [facility] [address] [place] [address] CBC w/ Auto Diffon Erythrocyte distribution width (RBC) [Ratio] 12.7 % Normal 10.9-14.2 [facility] Comment on above: Performed By: #### 2 893995, 5268665, 9143478, 0246995, 0668696, 74144069 #### [facility] [address] [place] [address] Hematocrit (Bld) [Volume fraction] 41.7 % Normal 34.0-46.0 [facility] Comment on above: Performed By: #### 2 820170, 6204596, 4395563, 6101145, 2777591, 61807571 #### [facility] [address] [place] [address] Hemoglobin (Bld) [Mass/Vol] 13.8 g/dL Normal 12.0-16.0 [facility] Comment on above: Performed By: #### 2 077024, 8533822, 4862051, 5517615, 1792974, 67604050 #### [facility] [address] [place] [address] MCH (RBC) [Entitic mass] 30.2 pg Normal 27.0-34.0 [facility] Comment on above: Performed By: #### 2 328946, 9697536, 1000599, 0633526, 4235612, 22982536 #### [facility] [address] [place] [address] MCHC (RBC) [Mass/Vol] 33.0 g/dL Normal 31.4-36.0 [facility] Comment on above: Performed By: #### 2 702314, 2272487, 7123111, 5507264, 3205227, 60257008 #### [facility] [address] [place] [address] MCV (RBC) [Entitic vol] 91.6 fL Normal 80.0-100.0 [facility] Comment on above: Performed By: #### 2 276483, 8119378, 3033706, 0352485, 2891591, 22118871 #### [facility] [address] [place] [address] Platelet mean volume (Bld) [Entitic vol] 7.5 fL Normal 6.4-10.8 [facility] Comment on above: Performed By: #### 2 764150, 1437014, 3487961, 6968663, 4111628, 19172544 #### [facility] [address] [place] [address] Platelets (Bld) [#/Vol] 357.0 E9/L Normal 150.0-500.0 [facility] Comment on above: Performed By: #### 2 492014, 6118020, 8406456, 1265414, 6753694, 68537097 #### [facility] [address] [place] [address] RBC (Bld) [#/Vol] 4.6 E12/L Normal 4.3-5.9 [facility] Comment on above: Performed By: #### 2 070375, 8079962, 5153563, 7847238, 8480329, 18759616 #### [facility] [address] [place] [address] WBC corrected for nucl RBC Auto (Bld) [#/Vol] 8.2 E9/L Normal 4.0-11.0 [facility] Comment on above: Performed By: #### 2 952443, 1960139, 1382843, 6978245, 6412172, 75390045 #### [facility] [address] [place] [address] CT Abdomen/Pelvis w/o Contra ston 08-04-2022 CT Abdomen/Pelvis w/o Contrast Exam Date/Time: 08/04/2022 10:29 EST Reason for Exam: abdominal pain, r/o obstruction;Other (please specify) Report IMPRESSION: CONSTIPATION. CT OF THE ABDOMEN AND PELVIS WITHOUT INTRAVENOUS CONTRAST MEDIUM. History: abdominal pain, r/o obstruction. Intermittent progressed abdominal pain for one month. Technical Factors: CT imaging of the abdomen and pelvis were obtained and formatted as 5 mm contiguous axial images from the domes of the diaphragm to the symphysis pubis. Sagittal and coronal reconstructions were also obtained. Oral contrast medium: None.. Intravenous contrast medium: None.. Comparison: None. Findings: Lungs: Trace dependent left lower lung subsegmental atelectatic change. Liver: Normal in size, shape, and attenuation. Bile Ducts: Normal in caliber. Gallbladder: No stones or wall thickening. Pancreas: Normal without masses, cysts, ductal dilatation or calcification. Spleen: Normal in size without masses or calcifications. No splenules. Kidneys: Normal in size. No hydronephrosis, masses, or stones. Adrenals: Normal. Small bowel: Normal in caliber. Appendix: Normal. Colon: Normal in caliber. Copious stool in colon. Peritoneum: No ascites, free air, or fluid collections. Vessels: Aorta normal in course and caliber. Report Lymph nodes: Retroperitoneal: No enlarged retroperitoneal lymph nodes. Mesenteric: No enlarged mesenteric lymph nodes. Pelvic: No enlarged pelvic lymph nodes. Ureters: Normal in course and caliber. No calcifications. Bladder: No wall thickening. Reproductive organs: No pelvic masses. Abdominal Wall: 9 mm fat-containing periumbilical anterior abdominal wall defect. Bones: No bone lesions. No degenerative changes. No post operative changes. All CT scans at this facility use dose modulation, iterative reconstruction, and/or weight based dosing when appropriate to reduce radiation dose to as low as reasonably achievable. FINAL REPORT Dictated: 08/04/2022 11:57 am SignTien larsen MD Signed (Electronic Signature): 08/04/2022 11:57 am Signed by: Tien Christopher MD Transcribed by: MELECIO Technologist: SAMIR Technical Comments Contrast: None Rectal Contrast Given? No Oral contrast amount in ml's: 0 Normal [facility] Consent for Treatmenton 07-23 Consent for Treatment [id number] .[id number]:127 Normal [facility] Discharge Instructionson Discharge Instructions [id number] 1.00CD:127 Normal [facility] ED Clinical Summaryon 2021 ED Clinical Summary [place] [id number] ED Clinical Summary Person Information Name: LONNIE CARRERA [facility] Age: 52 Years : 1970 Sex: Female Language: Comoran PCP: Sarah Pickard CNP Marital Status: Visit Id: Visit Reason: Constipation; Abdominal pain; ABD PAIN Speciality: Acuity: 3 Enc Type: Emergency Med Service: Emergency Arrival: 08/04/2022 09:32:50 Discharge: 08/04/2022 12:44:34 LOS: 000 03:12 Checkin: 08/04/2022 09:32:50 Checkout: 08/04/2022 12:44:34 Dispo Type: Home (Routine DC) EVENTS: Event Name Event Status Request Date/Time Start Date/Time Complete Date/Time Arrive Complete 08/04/2022 09:32:50 08/04/2022 09:32:50 08/04/2022 09:32:50 Document Home Meds Request 08/04/2022 09:32:50 Triage Complete 08/04/2022 09:32:50 08/04/2022 09:39:31 08/04/2022 09:39:31 Bed Assign Complete 08/04/2022 09:34:37 08/04/2022 09:34:37 08/04/2022 09:34:37 Dr Exam Complete 08/04/2022 09:34:37 08/04/2022 09:36:56 08/04/2022 09:36:56 RN Exam Complete 08/04/2022 09:34:37 08/04/2022 09:44:47 08/04/2022 09:44:47 Registration Complete 08/04/2022 09:36:56 08/04/2022 11:04:53 08/04/2022 11:04:53 Pending Labs Complete 08/04/2022 09:45:34 08/04/2022 11:14:49 Lab Complete 08/04/2022 09:45:34 08/04/2022 11:14:49 Urine Collect Complete 08/04/2022 09:45:34 08/04/2022 11:14:49 EKG Complete 08/04/2022 09:48:38 08/04/2022 09:57:45 CT Complete 08/04/2022 09:48:38 08/04/2022 10:13:55 08/04/2022 10:29:58 Pending Labs Complete 08/04/2022 09:51:09 08/04/2022 09:51:09 08/04/2022 10:10:30 Lab Complete 08/04/2022 09:51:09 08/04/2022 09:51:09 08/04/2022 10:10:30 Pending Labs Complete 08/04/2022 09:54:46 08/04/2022 09:54:46 08/04/2022 09:54:54 Lab Complete 08/04/2022 09:54:46 08/04/2022 09:54:46 08/04/2022 09:54:54 Pending Labs Complete 08/04/2022 09:55:06 08/04/2022 09:55:06 08/04/2022 09:55:07 Pending Labs Complete 08/04/2022 09:55:30 08/04/2022 09:55:30 08/04/2022 09:55:30 Pending Labs Inlab 08/04/2022 11:03:34 08/04/2022 11:03:34 Lab Inlab 08/04/2022 11:03:34 08/04/2022 11:03:34 Reg Complete Request 08/04/2022 11:04:53 Reg Bed Request Complete 08/04/2022 11:04:53 08/04/2022 11:04:53 08/04/2022 11:04:53 Discharge Complete 08/04/2022 12:30:59 08/04/2022 12:44:40 08/04/2022 12:44:40 Transfer Complete 08/04/2022 12:44:40 08/04/2022 12:44:40 08/04/2022 12:44:40 ADDRESS: [address] [place] [id number] PHYS DOC NOTES: MEDICAL INFORMATION: Prescriptions Given: New Medications [facility] [address], [address] [id number], [phone] nitrofurantoin (nitrofurantoin macrocrystals-monohyd rate 100 mg Cap) 1 Capsules By Mouth 2 times a day for 5 Days. Refills: 0. polyethylene glycol 3350 (Miralax 3350 17 gram packet) 17 Gram By Mouth every day. 2 capfuls daily for the next 3 days and then 1 capful daily for 1 week.. Refills: 0. Medications to Continue with No Changes Other Medications calcium-vitamin D (Calcium 600+D) By Mouth 3 times a day. cholecalciferol (Vitamin D3) By Mouth. duloxetine (Cymbalta 60 mg Cap-DR) 60 Milligram By Mouth every day. fenofibrate (Lofibra 160 mg oral tablet) 1 Tablets By Mouth every day. ibuprofen (ibuprofen 800 mg Tab) 1 Tablets By Mouth 3 times a day. magnesium oxide (magnesium 100 mg oral tablet) multivitamin with minerals (Multivitamins and Minerals) PATIENT EDUCATION INFORMATION: Instructions: Urinary Tract Infection, Adult; Constipation, Adult Follow up: With: Address: When: Sarah Pickard [address] [place] [address], [address] [place] [address] Business (1) In 3 days 08/07/2022 Comments: Call the office of your primary care doctor to arrange for follow-up within the above-stated timeframe. Follow-up with your primary care doctor about this ED visit. You should review your labs, imaging, and diagnoses from this ED visit with your primary care physician. If you were prescribed medications you should discuss possible side-effects and drug interactions with your pharmacist. Call 911 or go to the nearest Emergency Department if you develop any new or worsening symptoms. Seek immediate medical attention if you develop: worsening abdominal pain, new or worsening nausea, new or worsening vomiting, new or worsening diarrhea, chest pain, shortness of breath, pain with urination, problems urinating, fever, chills, weakness, or any new or worsening symptoms. DIAGNOSIS: Acute UTI; Constipation Normal [facility] ED Patient Education Noteon 08-04-2022 ED Patient Education Note Gastroenterology Constipation, Adult Constipation is when a person has fewer bowel movements in a week than normal, has difficulty having a bowel movement, or has stools that are dry, hard, or larger than normal. Constipation may be caused by an underlying condition. It may become worse with age if a person takes certain medicines and does not take in enough fluids. Follow these instructions at home: Eating and drinking ? Eat foods that have a lot of fiber, such as fresh fruits and vegetables, whole grains, and beans. ? Limit foods that are high in fat, low in fiber, or overly processed, such as mohawk fries, hamburgers, cookies, candies, and soda. ? Drink enough fluid to keep your urine clear or pale yellow. General instructions ? Exercise regularly or as told by your health care provider. ? Go to the restroom when you have the urge to go. Do not hold it in. ? Take iycu-guj-nklyyvt and prescription medicines only as told by your health care provider. These include any fiber supplements. ? Practice pelvic floor retraining exercises, such as deep breathing while relaxing the lower abdomen and pelvic floor relaxation during bowel movements. ? Watch your condition for any changes. ? Keep all follow-up visits as told by your health care provider. This is important. Contact a health care provider if: ? You have pain that gets worse. ? You have a fever. ? You do not have a bowel movement after 4 days. ? You vomit. ? You are not hungry. ? You lose weight. ? You are bleeding from the anus. ? You have thin, pencil-like stools. Get help right away if: ? You have a fever and your symptoms suddenly get worse. ? You leak stool or have blood in your stool. ? Your abdomen is bloated. ? You have severe pain in your abdomen. ? You feel dizzy or you faint. This information is not intended to replace advice given to you by your health care provider. Make sure you discuss any questions you have with your health care provider. Document Released: 05/07/2005 Document Revised: 07/22/2018 Document Reviewed: 01/27/2017 [employer] Patient Education ? 2020 [employer]. Obstetrics and Gynecology Urinary Tract Infection, Adult A urinary tract infection (UTI) is an infection of any part of the urinary tract. The urinary tract includes the kidneys, ureters, bladder, and urethra. These organs make, store, and get rid of urine in the body. Your health care provider may use other names to describe the infection. An upper UTI affects the ureters and kidneys (pyelonephritis). A lower UTI affects the bladder (cystitis) and urethra (urethritis). What are the causes? Most urinary tract infections are caused by bacteria in your genital area, around the entrance to your urinary tract (urethra). These bacteria grow and cause inflammation of your urinary tract. What increases the risk? You are more likely to develop this condition if: ? You have a urinary catheter that stays in place (indwelling). ? You are not able to control when you urinate or have a bowel movement (you have incontinence). ? You are female and you: ? Use a spermicide or diaphragm for control. ? Have low estrogen levels. ? Are . ? You have certain genes that increase your risk (genetics). ? You are sexually active. ? You take antibiotic medicines. ? You have a condition that causes your flow of urine to slow down, such as: ? An enlarged prostate, if you are male. ? Blockage in your urethra (stricture). ? A kidney stone. ? A nerve condition that affects your bladder control (neurogenic bladder). ? Not getting enough to drink, or not urinating often. ? You have certain medical conditions, such as: ? Diabetes. ? A weak disease-fighting system (immunesystem). ? Sickle cell disease. ? Gout. ? Spinal cord injury. What are the signs or symptoms? Symptoms of this condition include: ? Needing to urinate right away (urgently). ? Frequent urination or passing small amounts of urine frequently. ? Pain or burning with urination. ? Blood in the urine. ? Urine that smells bad or unusual. ? Trouble urinating. ? Cloudy urine. ? Vaginal discharge, if you are female. ? Pain in the abdomen or the lower back. You may also have: ? Vomiting or a decreased appetite. ? Confusion. ? Irritability or tiredness. ? A fever. ? Diarrhea. The first symptom in older adults may be confusion. In some cases, they may not have any symptoms until the infection has worsened. How is this diagnosed? This condition is diagnosed based on your medical history and a physical exam. You may also have other tests, including: ? Urine tests. ? Blood tests. ? Tests for sexually transmitted infections (STIs). If you have had more than one UTI, a cystoscopy or imaging studies may be done to determine the cause of the infections. How is this treated? Treatment for this condition (more content not included)... Normal [facility] ED Patient Summaryon 022 ED Patient Summary [place] [address] Patient Discharge Instructions Person Information Name: LONNIE CARRERA Age: 52 Years Arrival Date: 08/04/2022 09:32:50 Discharge Diagnosis: Acute UTI; Constipation Primary Care Physician: Sarah Pickard CNP Provider Information Primary Provider: Chris Fallon DO Advanced Pin Chaser:None The exam and treatment you received in the Emergency Department were for an urgent problem and are not intended as complete care. It is important that you follow up with a doctor, nurse practitioner, or physician?s administrative office assistant for ongoing care. If your symptoms become worse or you do not improve as expected and you are unable to reach your usual health care provider, you should return to the Emergency Department. We are available 24 hours a day. LONNIE CARRERA has been given the following list of patient education materials, prescriptions and follow-up instructions: Follow-up Instructions: With: Address: When: Sarah Pickard [address] [place] [address], [address] [place] [id number] [email or web address] (1) In 3 days 08/07/2022 Comments: Call the office of your primary care doctor to arrange for follow-up within the above-stated timeframe. Follow-up with your primary care doctor about this ED visit. You should review your labs, imaging, and diagnoses from this ED visit with your primary care physician. If you were prescribed medications you should discuss possible side-effects and drug interactions with your pharmacist. Call 911 or go to the nearest Emergency Department if you develop any new or worsening symptoms. Seek immediate medical attention if you develop: worsening abdominal pain, new or worsening nausea, new or worsening vomiting, new or worsening diarrhea, chest pain, shortness of breath, pain with urination, problems urinating, fever, chills, weakness, or any new or worsening symptoms. In the event that this physician does not participate in your insurance network, please consult with your insurance company to find a nearby participating provider. Patient Education Materials: Urinary Tract Infection, Adult; Constipation, Adult A MESSAGE TO ALL PATIENTS REGARDING OPIOIDS PRESCRIPTION OPIOIDS: WHAT YOU NEED TO KNOW Prescription opioids can be used to help relieve rjounrar-ya-jrsrxz pain and are often prescribed following a surgery or injury, or for certain health conditions. These medications can be an important part of the treatment but also come with serious risks. It is important to work with your healthcare provider to make sure you are getting the safest, most effective care. WHAT ARE THE RISKS AND SIDE EFFECTS OF OPIOID USE? Prescription opioids carry serious risks of addiction and overdose, especially with prolonged use. An opioid overdose, often marked by slowed breathing, can cause sudden . The use of prescription opioids can have a number of side effects as well, even when taken as directed: ? Tolerance?meaning you might need to take more of the medication for the same pain relief ? Physical dependence?meaning you have symptoms of withdrawal when a medication is stopped ? Increased sensitivity to pain ? Constipation ? Nausea, vomiting, and dry mouth ? Sleepiness and dizziness ? Confusion ? Depression ? Low levels of testosterone that can result in lower sex drive, energy, and strength ? Itching and sweating RISKS ARE GREATER WITH: ? History of drug misuse, substance use disorder, or overdose ? Mental health conditions (such as depression or anxiety) ? Sleep apnea ? Older age (65 years and older) ? Avoid alcohol while taking prescription opioids. Also, unless specifically advised by your health care provider, medications to avoid include: ? Benzodiazepines (such as Xanax or Valium) ? Muscle relaxants (such as Soma or Flexeril) ? Hypnotics (such as Ambien or Lunesta) ? Other prescription opioids KNOW YOUR OPTIONS Talk to your health care provider about ways to manage your pain that don?t involve prescription opioids. Some of these options may actually work better and have fewer risks and side effects. Options may include: ? Pain relievers such as acetaminophen, ibuprofen, and naproxen ? Some medication that are also used for depression or seizures ? Physical therapy and exercise ? Cognitive behavioral therapy, a psychological, goal-directed approach, in which patients learn how to modify physical, behavioral, and emotional triggers of pain and stress. IF YOU ARE PRESCRIBED OPIOIDS FOR PAIN: ? Never take opioids in greater amounts or more often than prescribed. ? Follow up with your primary health care provider. o Work together to create a plan on how to manage your pain. o Talk about ways to help manage your pain that don?t involve prescription opioids. o Talk about an (more content not included)... Normal [facility] Hep Func Panelon 08-04-2022 Albumin [Mass/Vol] 3.9 g/dL Normal 3.3-5.0 [facility] Comment on above: Performed By: #### 2 180424, 6145434, 4802973, 8121801, 7374628, 73332624 #### [facility] [address] [place] [address] Albumin/Globulin (S) [Mass conc ratio] 1.3 Normal 1.1-2.2 [facility] Comment on above: Performed By: #### 2 577931, 1752330, 5167174, 5074935, 4471468, [id number] #### [facility] [address] [place] [address] ALP [Catalytic activity/Vol] 88 Int._Unit/L Normal 21-98 [facility] Comment on above: Performed By: #### 2 478208, 1473145, 4901081, 1155443, 7248047, 68066042 #### [facility] [address] [place] [address] ALT No additional P-5'-P [Catalytic activity/Vol] 62 Int._Unit/L High 6-46 [facility] Comment on above: Performed By: #### 2 464658, 4002072, 9057839, 3946143, 6650159, 51730672 #### [facility] [address] [place] [address] AST [Catalytic activity/Vol] 34 Int._Unit/L Normal 5-43 [facility] Comment on above: Performed By: #### 2 711922, 2526466, 6660220, 4645404, 1655903, 94353222 #### [facility] [address] [place] [address] Bilirubin [Mass/Vol] 0.8 mg/dL Normal 0.0-1.1 [facility] Comment on above: Performed By: #### 2 936064, 9845851, 1630779, 0248393, 8473465, 44847829 #### [facility] [address] [place] [address] Bilirubin.direct [Mass/Vol] 0.1 mg/dL Normal 0.1-0.4 [facility] Comment on above: Performed By: #### 2 893908, 3419164, 7010657, 0386434, 0888391, 04057423 #### [facility] [address] [place] [address] Bilirubin.indirect [Mass or moles/Vol] 0.7 mg/dL Normal 0.1-0.9 [facility] Comment on above: Performed By: #### 2 222260, 5485988, 2902155, 1285168, 2755017, 00632728 #### [facility] [address] [place] [address] Globulin (S) [Mass/Vol] 3.0 g/dL Normal 1.4-4.0 [facility] Comment on above: Performed By: #### 2 721054, 1328749, 0824004, 3238280, 6732760, 30470759 #### [facility] [address] [place] [address] Protein [Mass/Vol] 6.9 g/dL Normal 6.0-7.8 [facility] Comment on above: Performed By: #### 2 344703, 1222314, 7789364, 6924866, 7129939, 96633903 #### [facility] [address] [place] [address] Lipase Levelon 08-04-2022 Lipase [Catalytic activity/Vol] 36 U/L Normal [facility] Comment on above: Performed By: #### 2 019055, 6927982, 4912796, 1849198, 9563527, 08658067 #### [facility] [address] [place] [address] UA With Cult Reflexon 2021 Bacteria LM Ql (Urine sed) TRACE Normal Trace [facility] Comment on above: Performed By: #### 1 0017639, [id number] #### [facility] [address] [place] [address] Bilirubin Ql (U) Negative Normal Negative [facility] Comment on above: Performed By: #### 1 5381139, [id number] #### [facility] [address] [place] [address] Clarity (U) SL CLOUDY Invalid Interpretation Code [facility] Comment on above: Performed By: #### 1 [id number], [id number] #### [facility] [address] [place] [address] Color (U) YELLOW Normal Yellow [facility] Comment on above: Performed By: #### 1 [id number], [id number] #### [facility] [address] [place] [address] Crystals LM Ql (Urine sed) Present Normal [facility] Comment on above: Performed By: #### 1 [id number], [id number] #### [facility] [address] [place] [address] Epithelial cells.squamous LM.HPF (Urine sed) [#/Area] 5-8 Normal 0-2 [facility] Comment on above: Performed By: #### 1 [id number], [id number] #### [facility] [address] [place] [address] Glucose Test strip (U) [Mass/Vol] Negative Normal Negative [facility] Comment on above: Performed By: #### 1 [id number], [id number] #### [facility] [address] [place] [address] Hemoglobin Ql (U) Negative Normal Negative [facility] Comment on above: Performed By: #### 1 [id number], [id number] #### [facility] [address] [place] [address] Ketones (U) [Mass/Vol] Negative Normal Negative [facility] Comment on above: Performed By: #### 1 [id number], [id number] #### [facility] [address] [place] [address] Manning.plasma/Lith ium.RBC (Bld) [Mass ratio] 0-3 Normal 0-3 [facility] Comment on above: Performed By: #### 1 [id number], [id number] #### [facility] [address] [place] [address] Mucus Ql (Urine sed) TRACE Normal [facility] Comment on above: Performed By: #### 1 [id number], [id number] #### [facility] [address] [place] [address] Nitrite Ql (U) Negative Normal Negative [facility] Comment on above: Performed By: #### 1 [id number], [id number] #### [facility] [address] [place] [address] pH (U) 7.0 [pH] Invalid Interpretation Code 5.0-9.0 [facility] Comment on above: Performed By: #### 1 [id number], [id number] #### [facility] [address] [place] [address] Protein (U) [Mass/Vol] Negative Normal Negative [facility] Comment on above: Performed By: #### 1 [id number], [id number] #### [facility] [address] [place] [address] Specific gravity (U) [Rel density] 1.010 Invalid Interpretation Code 1.005-1.030 [facility] Comment on above: Performed By: #### 1 [id number], [id number] #### [facility] [address] [place] [address] Type of Urine collection method Clean Catch Normal [facility] Comment on above: Performed By: #### 1 [id number], [id number] #### [facility] [address] [place] [address] Urobilinogen Qn (U) 0.2 {Daryl'U}/dL Normal 0.0-1.0 [facility] Comment on above: Performed By: #### 1 [id number], [id number] #### [facility] [address] [place] [address] WBC Auto Ql (U) 2+ Abnormal Negative [facility] Comment on above: Performed By: #### 1 [id number], [id number] #### [facility] [address] [place] [address] WBC LM.HPF (Urine sed) [#/Area] 26-30 Abnormal 0-5 [facility] Comment on above: Performed By: #### 1 [id number], [id number] #### [facility] [address] [place] [address] eGFRon 08-04-2022 GFR/1.73 sq M.predicted among blacks MDRD (S/P/Bld) [Vol rate/Area] mL/min/{1.73_m2} Normal >=59 [facility] Comment on above: Order Comment: Order added by Discern Expert. Result Comment: eGFR is race adjusted. AA=. Performed By: #### 2 [id number], [id number], [id number], [id number], [id number], [id number] #### [facility] [address] [place] [address] GFR/1.73 sq M.predicted among non-blacks MDRD (S/P/Bld) [Vol rate/Area] mL/min/{1.73_m2} Normal >=59 [facility] Comment on above: Order Comment: Order added by Discern Expert. Result Comment: Clinical Studies Specialist joe kidney disease could be indicated at eGFR's of less than 60 mL/min/1.73m2. Kidney failure is indicated at less than 15 mL/min/1.73m2. Performed By: #### 2 [id number], [id number], [id number], 8348687, 7082703, [id number] #### [facility] [address] [place] [address] PAP ACOG PANEL 2: 30 to 65on 02-20-2022 . . Normal [facility] Comment on above: Result Comment: Perf ormed at: WB Performed By: #### 4 [id number] #### [facility] [address] [place] [address] Dr. Tereza Garber Age Gdln ACOG Testing 30-65 Normal [facility] Comment on above: Performed By: #### 4 [id number] #### [facility] [address] [place] [address] Dr. Tereza Garber DIAGNOSIS: Comment Normal [facility] Comment on above: Result Comment: NEGA TIVE FOR INTRAEPITHELIAL LESION OR MALIGNANCY. Performed at: WB Performed By: #### 4 [id number] #### [facility] [address] [address] [address] Tereza Garber HPV Aptima Negative Normal Negative [facility] Comment on above: Result Comment: This nucleic acid amplification test detects fourteen high-risk HPV types (16,18,31,33,35,39,45,51,52,56,58,59,66,68) without differentiation. Performed at: =G Performed By: #### 4 [id number] #### [facility] [address] [address] [address] Tereza Garber Methodology: Comment Normal [facility] Comment on above: Result Comment: This liquid based ThinPrep(R) pap test was screened with the use of an image guided system. Performed at: WB Performed By: #### 4 [id number] #### [facility] [address] [address] [address] Tereza Garber Note: Comment Normal [facility] Comment on above: Result Comment: The Pap smear is a screening test designed to aid in the detection of premalignant and malignant conditions of the uterine cervix. It is not a diagnostic procedure and should not be used as the sole means of detecting cervical cancer. Both false-positive and false-negative reports do occur. . Performed at: WB Performed By: #### 4 [id number] #### [facility] [address] [place] [address] Dr. Tereza Garber Performed by: Comment Normal [facility] Comment on above: Result Comment: Nataly Bird, Organ Pipe Voicer (ASCP) Performed at: WB Performed By: #### 4 [id number] #### [facility] [address] [address] [address] Terzea Garber Specimen adequacy: Comment Normal [facility] Comment on above: Result Comment: Sati sfactory for evaluation. Endocervical and/or squamous metaplastic cells (endocervical component) are present. Performed at: WB Performed By: #### 4 [id number] #### [facility] [address] [address] [address] Tereza Garber US Pelvic Complete w/Transva ginalon 09-09-2021 US Pelvic Complete w/Transvaginal EXAM: TRANSABDOMINAL NON-OB PELVIC US CLINICAL HISTORY: FINDINGS: The Uterus measures 8.3 x 4.1 x 3.8 cm. It contains a small fibroid that measures 1.4 x 1.4 x 0.9 cm. The endometrial cavity measures 0.8 cm and contains a small area of fluid. The right ovary measures 3.2 x 2.4 x 1.9 cm for a volume of 7.4 cc. Spectral and color Doppler images show normal blood flow. The left ovary measures 3.1 x 2.9 x 2.3 cm for a volume of 10.7 cc. It again contains a cyst that measures 1.6 x 1.7 x 1 cm. The soft tissue component previously visualized is is not seen. There may be a few scattered internal echoes. Spectral color Doppler images show normal blood flow. No adnexal mass or free fluid is seen bilaterally. IMPRESSION: 1. The endometrium is again abnormally thickened. 2. A cyst is seen in the left ovary. Its has a more simple appearance. Report reported and signed by Myrna Sanchez on 09/09/2021 1518 Normal [facility] Dietitian Assistant US Pelvic Complete w/Transva ginalon 08-26-2021 US Pelvic Complete w/Transvaginal EXAMINATION: Pelvic ultrasound History: Postmenopausal bleeding. Technique: Sonography of the pelvis was performed by transvaginal and transabdominal technique. Images were obtained and stored in a permanent archive. Comparison: None. RESULT: Uterus: Orientation: Retroverted Size: 6.9 x 5.1 x 4.3 cm Myometrium: Homogeneous echotexture small rounded lesion, probably a small fibroid, measuring around 1.1 cm. Endometrial echocomplex: 0.6 cm; also focal anechoic area within the endometrium measuring around 0.4 cm, possibly small amount of fluid. Cervix: Normal Right ovary: Normal sonographic appearance Size: 2.8 x 2.4 x 1.2 cm Complex cyst: None Solid mass: None Doppler evaluation: Arterial and venous flow with normal spectral waveforms. Left ovary: Size: 3.7 x 2.9 x 2.9 cm Complex cyst: 3.7 x 2.9 x 2.9 cm heterogeneous lesion without internal vascularity with possible solid component. Solid mass: None Doppler evaluation: Arterial and venous flow with normal spectral waveforms. Free fluid: Absent IMPRESSION: Abnormal endometrial echo complex thickness of 0.6 cm. Recommend correlation with endometrial biopsy given history of postmenopausal bleeding. Indeterminate left adnexal mass measuring 2.7 cm, with differential including ovarian neoplasm and complex cyst. Consider short interval follow-up ultrasound to ensure stability/resolution. Or could correlate with pelvic MRI with contrast. Report reported and signed by Arden Reynoso on 08/26/2021 1617 Normal [facility] Specialist Social History Date Type Detail Facility Start: 1970 Sex Assigned At Not on file [facility] Tobacco smoking status NHIS Unknown if ev er smoked [facility] Note 05-09-2014 Telephone Encounter - Ruthie Ann - 05/09/2014 2:18 PM EDT Note Date & Type Note Facility 05-09-2014 Miscellaneous Notes Patient called and is wondering if you still have her records she brought into her visit. If you do let us know and we will mail them back to her. Ruthie Patel Psr documented in this encounter [facility] Summary Purpose Family History No Family History Records FoundNo Family History Records FoundNo Family History Records FoundNo Family History Records Found Advance Directives No Advanced Directives Records FoundNo Advanced Directives Records FoundNo Advanced Directives Records FoundNo Advanced Directives Records Found Additional Source Comments Source Comments (unrecognize d section and content) In the event this informatio n is protected by the Federal Confidentiality of Alcohol and Drug Abuse Patient Records regulations: The Federal rules restrict any use of the information to criminally investigate or prosecute any alcohol or drug abuse patient.[facility] INFORMATION SOURCE (unrecogn ized section and content) DATE CREATED AUTHOR 09/10/2021 [facility] dical Specialist DATE CREATED AUTHOR AUTHOR'S ORGANIZ ATION 08/13/2022 [facility] DATE CREATED AUTHOR AUTHOR'S ORGANIZ ATION 01/29/2023 [facility] DATE CREATED AUTHOR AUTHOR'S ORGANIZ ATION 01/31/2024 [facility] dical Specialists EPIC FOR RECORDS PERTAINING TO PATIENTS WHO ARE OR HAVE BEEN ENROLLED IN A CHEMICAL DEPENDENCY/SUBSTANCEABUSE PROGRAM, SOME INFORMATION MAY BE OMITTED. This clinical summary was aggregated from multiple sources. Caution should be exercised in using it in the provision of clinical care. This summary normalizes information from multiple sources, and as a consequence, information in this document may materially change the coding, format and clinical context of patient data. In addition, data may be omitted in some cases. CLINICAL DECISIONS SHOULD BE BASED ON THE PRIMARY CLINICAL RECORDS. [facility]. provides no warranty or guarantee of the accuracy or completeness of information in this document.
== END 2024-02-07 07:20 | disposition home or self-care (01) ==
LOC: MAMMO 07:20
PROVIDERS: Visit Provider Obstetrics & Gynecology
DX: Z12.31 Encounter for screening mammogram for malignant neoplasm of breast (principal); Z80.7 Family history of other malignant neoplasms of lymphoid, hematopoietic and related tissues
CPT/HCPCS: 77063; 77067

== ENCOUNTER 2025-03-06 19:10 | Outpatient (REF) | payer BC, SELFPAY ==
--- OUTSIDE RECORDS SUMMARY | 2024-10-12 05:00 | XMS_ITS ---
Author Organization [facility] Address [address] [place] [address] Care Team Providers Care Attendant Lodging Facilities Name Role Phone Sarah Pickard Primary Care Provider Unavailabl Dari Puckett Unavailable REASON FOR VISIT Skin Conditions, Hair, Nails Encounters Encounter Location Date Provider Diagnosis [address] [place] [address] 10/12/2024 Dari Serrano Plan Of Treatment No Information Progress Notes * Gem CARRERADOB: [birth year] (54 yo F)Acc No.[id number]:10/12/2024 Patient: Smita KOVACSey Provider: Joyce Serrano APRN :1970 A ge:54 Y S ex:Female Date:10/12/2024 External Visit ID:[id number] Address:[address] [place], [place] [id number] Pcp:Sarah Pickard Subjective: * Chief Complaints: * 1 . Skin Conditions, Hair, Nails. * Medical History: Objective: * Vitals: Assessment: Plan: * Treatment: * Billing Information: * Visit Code: * Procedure Codes: Care Plan Details* * Electronic signature of Jyothi Serrano APRN on 03/06/2025 at 02:03 PM CDT Sign off status: Pending * Provider: Joyce eSrrano APRN Date: 10/12/2024 Generated for Printi ng/Faxing/eTransmitting on: 0 03/06/2025 02:03 PM CDT
--- OUTSIDE RECORDS SUMMARY | 2025-03-06 15:00 | XMS_ITS | Encounter Summary ---
Author Organization [facility] Address [address] [place] [address] Care Team Providers Care Supervisor Painting Name Role Phone PickardSarah MANAGER DATA WAREHOUSING Unavailable Heidi Arciniega DO Unavailable [phone] Reason for Visit * Reason Comments Well Women Visit Encounter Details Date Type Department Care Team (Late st Contact Info) Description 03/06/2025 3:00 PM EDT Office Visit [facility] [address] [place] [phone] Zandra Dozier PA [address] [place], [facility]11 Well woman exam with routine gynecological exam; Encounter for screening mammogram for malignant neoplasm of breast; Postmenopausal state Social History Tobacco Use Types Packs/Day Years Used Date Smoking Tobacco: Never Smokeless Tobacco: Never Alcohol Use Standard Drinks/Week Comments Yes 2 (1 standard drink = 0.6 oz pur e alcohol) AUDIT-C Answer Date Recorded Q1: How often do you have a drink containing alc ohol? 2-4 times a month 01/28/2024 Q2: How many drinks containi ng alcohol do you have on a typical day when you are drinking? 1 or 2 01/28/2024 Q3: How often do you have si x or more drinks on one occasion? Never 01/28/2024 Comments No Sex and Gender Information Value Date Recorded Sex Assigned at Not on file Legal Sex Female 7:31 PM EDT Gender Identity Not on file Sexual Orientation Not on file documented as of this encounter Last Filed Vital Signs Vital Sign Reading Time Taken Comments Blood Pressure 122/86 03/06/2025 3:12 PM EDT Pulse - - Temperature - - Respiratory Rate - - Oxygen Saturation - - Inhaled Oxygen Concentration - - Weight 81.8 kg (180 lb 4 oz) 03/06/2025 3:12 PM EDT Height - - Body Mass Index 30.94 12/12/2024 8:59 AM EDT documented in this encounter Plan of Treatment Upcoming Encounters Date Type Department Care Team (Late st Contact Info) Description 04/24/2025 8:35 AM EDT Office Visit [facility] [address] [place] [phone] Taty Pa MD [address] [place] [address] 03/14/2026 8:30 AM EDT Procedure Visit [facility] [address] [place] [phone] Arley Millan, DO [address] [place], [place] [id number] Scheduled Orders Name Type Priority Associated Diagnoses Orde r Schedule Bilateral screening mammogram Imaging Routine Encounter for screening mammogram for malignant neoplasm of breast Expected: 03/06/2025, Expires: 05/07/2026 DEXA bone density Imaging Routine Postmenopausal state Expected: 03/06/2025 (Approximate), Expires: 03/06/2026 THIN PREP TIS PAP AND HR HPV DNA Pathology and Cytology Routine Well woman exam with routine gynecological exam Ordered: 03/06/2025 documented as of this encounter Visit Diagnoses Diagnosis Well woman exam with routine gynecological exam Routine gynecological examination Encounter for screening mammogram for malignant neoplasm of breast Postmenopausal state Asymptomatic postmenopausal status (age-related) (natural) documented in this encounter Care Teams Supervisor Painting Relationship Specialty Start Date End Date [place] [phone] Referring Physician Family Medicine 01/31/24 Heidi Arciniega DO [address] [place] [address] Referring Physician Neurology 08/14/24 documented as of this encounter
--- OUTSIDE RECORDS SUMMARY | 2025-03-06 19:14 | XMS_ITS | Encounter Summary ---
Author Organization [facility] Address [address] [place] [address] Care Team Providers Care Personal Financial Counselor Name Role Phone NeerajSarah MANAGER HOME IMPROVEMENT Unavailable Heidi Arciniega DO Unavailable [phone] Encounter Details Date Type Department Care Team (Late st Contact Info) Description 02/07/2024 Clinisync Result Encounter [facility] External Department Unsolicited Arley Millan, DO [address] [facility] [place] [address] Social History Tobacco Use Types Packs/Day Years [...] on file documented as of this encounter Plan of Treatment Upcoming Encounters Date Type Department Care Team (Late st Contact Info) Description 04/24/2025 8:35 AM EDT Office Visit [facility] [address] [place] [address] Taty Pa MD [address] [place] [address] 03/14/2026 8:30 AM EDT Procedure Visit [facility] [address] [phone] Arley Millan, DO [address] [facility] [place] [address] documented as of this encounter Procedures Procedure Name Priority Date/Time Associated Diagnosis Comments MM TOMOSYNTHESIS SCREENING BI 02/07/2024 2:17 PM EDT documented in this encounter Results * MM TOMOSYNTHESIS SCREENING BI (02/07/2024 2:17 PM EDT) Anatomical Region Laterality Modality Other 02/07/2024 2:17 PM EDT Narrative 02/07/2024 2:18 PM EDT The [address] [address] Mammography Report Signed Patient: LONNIE CARRERA MR#: [id number] : 1970 Acct:[id number] Age/Sex: 53 / F ADM Date: 02/07/24 Loc: MAMMO Attending Dr: Arley Millan D.O. Ordering Physician: Arley Millan D.O. Results: Date of Service: 02/07/24 Follow Up: Procedure(s): MM tomosynthesis screening BI Accession Number(s): [id number] cc: Arley Millan D.O.; Physician,Non-Staff M.Adia Patient Name: LONNIE CARRERA MR#: [id number] : 1970 Exam Date: 02/07/2024 Ordering Doctor: DR Arley Millan . RADIOLOGY REPORT PROCEDURE: MM TOMOSYNTHESIS SCREENING BI COMPARISON: MG MAMM SCREEN 3D WILEY CAD, 01/20/2023. MG MAMM SCREEN 3D WILEY CAD, 01/06/2022. MG MAMM SCREEN 3D WILEY CAD, 12/10/2020. MG MAMM WILEY SCRN W CAD DIG, 05/09/2013. INDICATIONS: Screening mammogram Calculator Name NCI Breast Cancer Risk Assessment Tool 5 Year Breast Cancer Risk 0.80% Lifetime Breast Cancer Risk 5.50% Personal Breast Cancer No Personal Ovarian Cancer No Treatments None Family Cancers Father with lymphoma cancer at age 70. LOCATION: [facility] BREAST COMPOSITION: The breasts are heterogeneously dense,which may obscure small masses. FINDINGS: DIAGNOSTIC [...] BIOPSIED. Dictated by: Xavier Davison M.D. on 02/07/2024 at 14:10 Approved by: Xavier Davison M.D. on 02/07/2024 at 14:17 Dictated By: Xavier Davison M.D. Signed By: 02/07/24 1418 DD/ 1417 TD/TT: Parts Inspector: Procedure Note Radiology, Radiologist, MD - 02/07/2024 [place] [address] Mammography Report Signed Patient: LONNIE CARRERA LMR#: [id number] : 1970Acct:[id number] Age/Sex: 53 / FADM Date: 02/07/24 Loc: MAMMO Attending Dr: Arley Millan D.O. Ordering Physician: Arley Millan D.O.Results: Date of Service: 02/07/24Follow Up: Procedure(s): MM tomosynthesis screening BI Accession Number(s): [id number] cc: Arley Millan D.O.; Physician,Non-Staff Avi Patient Name: LONNIE CARRERA MR#: [id number] : 1970 Exam Date: 02/07/2024 Ordering Doctor: DR Arley Millan . RADIOLOGY REPORT PROCEDURE: MM TOMOSYNTHESIS SCREENING BI COMPARISON: MG MAMM SCREEN 3D WILEY CAD, 01/20/2023. MG MAMM SCREEN 3DBIL CAD, 01/06/2022. MG MAMM SCREEN 3D WILEY CAD, 12/10/2020. MG MAMM WILEY SCRN WCAD DIG, 05/09/2013. INDICATIONS: Screening mammogram Calculator Name NCI Breast Cancer Risk Assessment Tool 5 Year Breast Cancer Risk 0.80% Lifetime Breast Cancer Risk 5.50% Personal Breast Cancer No Personal Ovarian Cancer No Treatments None Family Cancers Father with lymphoma cancer at age 70. LOCATION: [facility] BREAST COMPOSITION: The breasts are heterogeneously dense,which may obscure small masses. FINDINGS: DIAGNOSTIC CATEGORY 1--NEGATIVE. RIGHT BREAST: No significant suspicious finding. No significant changehas occurred. LEFT BREAST: No significant suspicious finding. No significant changehas occurred. RECOMMENDATIONS: ROUTINE MAMMOGRAM AND CLINICAL EVALUATION IN 12 MONTHS. PLEASE NOTE: A NORMAL MAMMOGRAM DOES NOT EXCLUDE THE POSSIBILITY OFBREAST CANCER. A CLINICALLY SUSPICIOUS PALPABLE LUMP SHOULD BE BIOPSIED. Dictated by: Xavier Davison M.D. on 02/07/2024 at 14:10 Approved by: Xavier Davison M.D. on 02/07/2024 at 14:17 Dictated By: Xavier Davison M.D. Signed By:02/07/24 1418 DD/ 1417 TD/TT: Parts Inspector: Arley Millan DO [facility] Final Result documented in this encounter Visit Diagnoses Not on filedocumented in this encounter Care Teams Personal Financial Counselor Relationship Specialty Start Date End Date Sarah Pickard NP [address] [place] [phone] Referring Physician Family Medicine 01/31/24 Heidi Arciniega DO [address] [place] [address] Referring Physician Neurology 08/14/24 documented as of this encounter
--- OUTSIDE RECORDS SUMMARY | 2025-03-06 19:14 | XMS_ITS | Encounter Summary ---
Author Organization [facility] Address [address] [facility] [place] [address] Care Team Providers Care Treating And Pumping Supervisor Name Role Phone NeerajSarah DATASTAGE ARCHITECT Unavailable Heidi Arciniega DO Unavailable Encounter Details Date Type Department Care Team (Late st Contact Info) Description 03/15/2024 Abstract [facility] OB [address] [place] [phone] Arley Millan, DO [address] [facility] [address] [place] [place], [place] [id number] Social History Tobacco Use Types Packs/Day Years [...] DERM [address] [place] [address] Taty Pa MD [address] [place] [address] 03/14/2026 8:30 AM EDT Procedure Visit [facility] [address] [place] [address] Arley Millan DO [address] [place] [address] documented as of this encounter Visit Diagnoses Not on filedocumented in this encounter Care Teams Treating And Pumping Supervisor Relationship Specialty Start Date End Date Sarah Pickard NP [address] [place] [phone] Referring Physician Family Medicine 01/31/24 Heidi Arciniega DO [address] [place] [id number] Referring Physician Neurology 08/14/24 documented as of this encounter
--- OUTSIDE RECORDS SUMMARY | 2025-03-06 19:14 | XMS_ITS | Encounter Summary ---
Author Organization [facility] Address [address] [place] [address] Care Team Providers Care Swing Frame Grinder Operator Name Role Phone Sarah Pickard LENS BLOCKER Unavailable Heidi Arciniega DO Unavailable [phone] Encounter Details Date Type Department Care Team (Late Contact Info) Description 03/06/2025 Mesuro flowsheet [facility] [address] [facility] [phone] Zandra Dozier PA [address] [facility] [place] [address] Social History Tobacco Use Types Packs/Day [...] DERM [address] [place] [address] Taty Pa MD [address] [place] [address] 03/14/2026 8:30 AM EDT Procedure Visit [facility] [address] [place] [address] Arley Millan DO [address] [facility] [place] [address] documented as of this encounter Visit Diagnoses Not on filedocumented in this encounter Care Teams Swing Frame Grinder Operator Relationship Specialty Start Date End Date Sarah Pickard NP [address] [place] [phone] Referring Physician Family Medicine 01/31/24 Heidi Arciniega DO [address] [place] [id number] Referring Physician Neurology 08/14/24 documented as of this encounter
--- OUTSIDE RECORDS SUMMARY | 2025-03-06 19:14 | XMS_ITS | Data Portability ---
Author Organization [address] [facility] Address [address] [place] [phone] Assessment No assessment recorded. Plan of Treatment Reminders Order Date Submit Date Provider Last Modified By Organization Details Last Modified Time Details Appointments None recorded. Lab None recorded. Referral None recorded. Procedures None recorded. Surgeries None recorded. Imaging None recorded. Medication Orders Augmentin 875 mg-125 mg tablet 2020 021 [facility], [address] [place], [address], 12:59:33 Medrol (Jose Roberto) 4 mg tablets in a dose pack 2020 021 [facility], [address] [place], [address], 12:59:36 Patient TargetsNo targets recorded. Patient Instructions Encounter Date Encounter Id Patient Instructions Last Modified By Organization Details Last Modified Time 03/05/2021 [id number] start oral steroids and oral antibiotics. May continue with Tylenol or ibuprofen, throat lozenges and saltwater gargles as needed for sore throat. Please return here to urgent care or follow up with primary care provider as needed for new or worsening symptoms. [email or web address] Not available 03/05/2021 12:59:23 Reason for Referral None Reported. Procedures Surgical History Date Name Laterality Status Provider Name and Address Organization Details Recorded Time tonsillectomy completed Nidhi Rodriguez [address] 03/05/2021 12:51:28 Imaging Results None recorded. Procedure Notes None recorded. Medical Equipment None Reported. Allergies Allergen ID Allergen Name Allergen Category Reaction Reaction Severity Criticality Documentation Date Start Date Code Code System Note Provider Name and Address Organization Details Recorded Time 348758 Biaxin medicatio n Not available Not available Not available 03/05/2021 95339 9 RxNorm Nidhi Rodriguez [address] 12:49:29 005991 Substance with sulfonami de structure and antibacte rial mechanism of action (substanc e) medicatio n Not available Not available Not available 03/05/2021 [id number] SNOMED Treasure Parsons [address] 12:49:42 Medications Name Sig Start Date Stop Date Status Note LastModified by Organization Details LastModified Time Augmentin 875 mg-125 mg tablet Take 1 tablet every 12 hours by oral route for 10 days. 2020 active Not Available Not Available Not Avai lable Medrol (Jose Roberto) 4 mg tablets in a dose pack use per package instruction s 2020 active Not Available Not Available Not Avai lable amitriptylin e 50 mg tablet Take 1 tablet every day by oral route. active Not Available Not Available No t Available Claritin active Not Available Not Avai lable Not Available Nasacort 55 mcg nasal spray aerosol [place] 2 sprays every day by intranasal route. active Not Available Not Available No t Available Vitals Date Recorded Body weight Heart rate Respiratory rate Oxygen saturation Oxygen saturation in Arterial blood by Pulse oximetry Body temperature Body mass index (BMI) Body height Systolic And Diastolic Provider Name and Address Organization Details Last Updated DateTime 06273.7 g 83 /min 16 /min 99 % 99 % 98.1 [degF] 29.2 kg/m2 162.56 cm 136/78 mm[Hg] Rob Rodriguez[address] 12:48:38 Social History None recorded. Functional Status None recorded. Mental Status None recorded. Family History Relationship Description Onset Age of this Age Resolved Age Notes LastModified by Organization Details LastModified Time Father Diffuse non-Hodgkin' s lymphoma [email or web address] Not available 03/05 12:50:59 Medical History Condition Response Coronary Artery Disease N Seizure Disorder N Other Y Anxiety/Depression N Gout N Thyroid Disease N Atrial Fibrillation N Hyperthyroidism N Hyperkalemia N Emphysema N Hypokalemia N COPD N Depression N Hypothyroidism N Glaucoma N Bipolar N No past medical history reported N Has Pacemaker N Anxiety Disorder N Muscle, Joint, or Bone Problems N Arthritis N Hearing Loss N Cancer N Stroke N Aortic Valve Disease N High Cholesterol N Liver Disease N Dialysis N Fibromyalgia N Tobacco Use N Kidney Disease N DVT/Blood Clots/PE N Osteoarthritis N Ear or Hearing Problems N Anemia N PATIENT DENIES SIGNIFICANT PAST MEDICAL HISTORY N Heart Attack ([place]) N Diabetes N Blood Transfusions N Seizures/Epilepsy N Myocardial Infarction N Congestive Heart Failure (CHF) N Chronic Pain N Diverticulitis N Dementia N Allergies N Asthma N GERD/Reflux N Hepatitis N Heart Disease N Pulmonary Embolism N Hypertension N Osteoporosis N Gynecological History Statement/Question Response Date of LMP 06/05/2020 Obstetrics History GPAL:G 0 P 0 0 0 0 Past Encounters Encounter ID Performer Location Encounter Start Date Encounter Closed Date Diagnosis/Indication Diagnosis SNOMED-CT Code Diagnosis ICD10 Code Diagnosis Note [id number] [facility] [address] [place] [address] 03/05/2021 11:52:29 03/05/2021 13:03:54 Acute pharyngitis 545517899 J02.9 Health Concerns Section Related Observation LastModified by Organization Detai ls LastModified Time None Recorded Concern Status LastModified by Organization Details LastModified Time None Recorded Advance Directives Directive None Recorded Payers Insurance Date Sequence Insurance Name Policy Number Policy Barnhart Covered Member ID Barnhart Member ID Guarantor Name 03/05/2021 1 [place] [id number] 2 Gem Singh [id number] Gem Singh Notes Date Note Type Note Provider Name and Address Organization Details Recorded Time 03/05/2021 text/html patient presents with seven days of a sore throat, hoarseness and cough which she relates to throat irritation. She states that she is on vacation and was around some people that had a cold prior to symptoms starting. She has had both COVID vaccinations. No headaches, vision changes, other upper respiratory symptoms, fever chills, shortness of breath or wheezing, chest pain or palpitations no nausea vomiting abdominal pain, changes in bowel or bladder habits, joint pain or rashes. She has been self treating with salt water gargles, throat lozenges, Tylenol, ibuprofen and test and cough syrup without any lasting improvement. She states that symptoms are moderate and worsening. LONDON LOPEZ [address] [facility],[address], [place], [address], [facility] [place] 03/05/2021 12:59:46 OBGyn Episode No OBEpisode recorded.
--- OUTSIDE RECORDS SUMMARY | 2025-03-06 19:14 | XMS_ITS | Encounter Summary ---
Author Organization [facility] Address [address] [place] [address] Care Team Providers Care Catheterization Laboratory Technician Name Role Phone NeerajAnaidca DRAGGER OUT Unavailable Heidi Arciniega DO Unavailable Encounter Details Date Type Department Care Team (Late st Contact Info) Description 06/25/2023 Clinisync Result Encounter [facility] External Department Unsolicited Oriana Millan, DO [address] [facility] [place] [address] Social History Tobacco Use Types Packs/Day Years Used Date Smoking Tobacco: Never Alcohol Use Standard Drinks/Week Comments Yes 0 (1 standard drink = 0.6 oz pure alcohol) Alcohol: 1 or 2 drinks, 2 to 4 times a month AUDIT-C Answer Date Recorded Q1: How often do you have a drink containing alc ohol? 2-4 times a month 06/27/2023 Q2: How many drinks containi ng alcohol do you have on a typical day when you are drinking? 1 or 2 06/27/2023 Frequency of Binge Drinking Not on file 12/2022 Comments Unknown Sex and Gender Information Value Date Recorded Sex Assigned at Not on file Legal Sex Female 7:31 PM EDT Gender Identity Not on file Sexual Orientation Not on file COVID-19 Exposure Response Date Recorded In the last 10 days, have yo u been in contact with someone who was confirmed or suspected to have Coronavirus/COVID-19? No / Unsure 06/28/2023 8:12 PM EST documented as of this encounter Functional Status documented as of this encounter Plan of Treatment Upcoming Encounters Date Type Department Care Team (Late st Contact Info) Description 04/24/2025 8:35 AM EDT Office Visit [facility] [address] [place] [address] Taty Pa MD [address] [place] [address] 03/14/2026 8:30 AM EDT Procedure Visit [facility] OB [address] [facility] [place] [phone] Oriana Millan, [address] [facility] [address] [place], [place] [phone] documented as of this encounter Procedures Procedure Name Priority Date/Time Associated Diagnosis Comments ECG 12-LEAD 06/25/2023 11:46 AM EDT documented in this encounter Results * ECG 12-LEAD (06/25/2023 11:46 AM EDT) Anatomical Region Laterality Modality Other 06/25/2023 11:4 6 AM EDT Narrative 06/25/2023 11:46 AM EDT [address] [address] Electrocardiograph Report Signed Patient: LONNIE CARRERA MR#: [id number] : 1970 Acct:[id number] Age/Sex: 52 / F ADM Date: 06/25/23 Loc: PST Attending Dr: Oriana Millan D.O. Ordering Physician: Oriana Millan D.O. 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 Signed By: 2353 DD/ 114 TD/TT: Corporate Services Manager: Procedure Note Radiology, Radiologist, MD - [address] [place] [address] Electrocardiograph Report Signed Patient: LONNIE CARRERA LMR#: [id number] : 1970Acct:[id number] Age/Sex: 52 / FADM Date: 06/25/23 Loc: PST Attending Dr: Oriana Millan D.O. Ordering Physician: Oriana Millan D.O. 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 Signed By:06/30/23652 DD/ 1146 TD/TT: Corporate Services Manager: us Oriana Millan DO [facility] Final Result documented in this encounter Visit Diagnoses Not on filedocumented in this encounter Care Teams Catheterization Laboratory Technician Relationship Specialty Start Date End Date Sarah Pickard NP [address] [place] [address] Referring Physician Family Medicine 01/31/24 Heidi Arciniega DO [address] [place] [address] Referring Physician Neurology 08/14/24 documented as of this encounter
--- OUTSIDE RECORDS SUMMARY | 2025-03-06 19:14 | XMS_ITS | Clinical Summary ---
Author Organization [facility] Address [address] [place] [address] Care Team Providers Care Dynamic Etching Processor Name Role Phone Alfonso Pinto MD Primary Care Provider Allergies Active Allergy Reactions Criticality Noted Date Comments Clarithromycin Intolerance High 12/01/2013 tachycardia, chest/back burning, htn Sulfa (Sulfonamide Antibiotics) Other: See Comments High 12/01/2013 tachycardia, chest/back burning pain, indigestion, htn Medications ibuprofen 800 mg tablet Take 800 mg by mouth once daily. Active loratadine (CLARITIN) 10 mg tablet Take 10 mg by mouth once daily. Active cyclobenzaprine 10 mg tablet Take 10 mg by mouth as needed. Active multivitamin tablet Take 1 tablet by mouth once daily. Woman's One A Day once daily Active Merrill-3 Fatty Acids-Vitamin E (FISH OIL) 1,000 mg cap Take 1 capsule by mouth twice daily. Active CALCIUM CARBONATE (CALCIUM 600 ORAL) Take by mouth once daily. Active Potassium 99 mg tab Take by mouth once daily. Takes two once daily Active Magnesium 500 mg tab Take by mouth twice daily. Active VITAMIN B COMPLEX & VIT C NO.4 (SUPER B COMPLEX + C ORAL) Take by mouth once daily. Active Cholecalciferol , Vitamin D3, (VITAMIN D) 1,000 unit cap Take 1,000 Units by mouth once daily. Active Active Problems Problem Noted Date Diagnosed Date Fibromyalgia 12/01/2013 Family History Medical History Relation Comments BP [Other] Brother 2 NHL [Other] Father neck problems [Other] Mother None Sister 2 Relation Status Comments Brother 1 Alive Brother 2 Father Alive Mother Alive Sister 1 Alive Sister 2 Social History Tobacco Use Types Packs/Day Years Used Date Smoking Tobacco: Never Smokeless Tobacco: Never Alcohol Use Standard Drinks/Week Comments Yes 0 (1 standard drink = 0.6 oz pur e alcohol) occ Comments No Sex and Gender Information Value Date Recorded Sex Assigned at Not on file Legal Sex Female 2:45 AM EST Gender Identity Not on file Sexual Orientation Not on file 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 Not on file Not on file Last Filed Vital Signs Vital Sign Reading Time Taken Comments Blood Pressure 124/62 09/11/2014 1:06 PM EST Pulse 76 09/11/2014 1:06 PM EST Temperature - - Respiratory Rate - - Oxygen Saturation - - Inhaled Oxygen Concentration - - Weight 71.7 kg (158 lb) 09/11/2014 1:06 PM EST Height 162.6 cm (5' 4 ) 09/11/2014 1:06 PM EST Body Mass Index 27.12 09/11/2014 1:06 PM EST Plan of Treatment Health Maintenance Due Date Last Done Comments Anxiety Screening 1986 Depression Screening 1986 HIV Screening 1986 Hepatitis C Screening 1986 DTaP,Tdap,Td Vaccine (1 - Tdap) 1987 Hepatitis B Vaccine (1 of 3 - 19+ 3-dose series) 06/30 Cervical Cancer Screening [address] M[address] Colonography 2013 Cologuard (FIT-DNA) 2013 Colonoscopy 2013 Colorectal Cancer Screening 2013 Diabetes Screening 2013 Fecal Occult Blood 2013 Lipid Screening 2013 Sigmoidoscopy 2013 Pneumococcal Vaccine: 50+ (1 of 1 - PCV) 2018 Shingrix Vaccine (1 of 2) 2018 Covid-19 Vaccine (1 - 2023- season) 2024 Influenza Vaccine (#1) 2025 Insurance [employer] Care Teams Dynamic Etching Processor Relationship Specialty Start Date End Date Alfonso Pinto MD [facility] [address] [place] [address] PCP - General Family Medicine 10/28/13
--- OUTSIDE RECORDS SUMMARY | 2025-03-06 19:14 | XMS_ITS | Patient Health Record ---
Author Organization [facility] Address [address] [place] [address] Care Team Providers Care Assistant Sales Manager Name Role Phone Sarah Pickard Primary Care Provider Dari Chavez Unavailable Allergies Allergen (clinical drug ingredient) Drug/Non Drug Allergy documented on EMR Reaction Allergy Type Onset Date Status cefdinir Cefdinir gastrointestinal upset Drug Allergy Active clarithromycin Clarithromycin burning down her back and tingling in her arms Drug Allergy Active Substance with sulfonamide structure and antibacterial mechanism of action (substance) Sulfa Antibiotics burning in her back and tingling down her arms Drug Allergy Active Reason For Referral No Information Medications Medication SIG (Take, Route, Fr equency, Duration) Notes Start Date End Date Status Amitriptyline HCl 75 MG 1 tablet Orally Once a day Active Immunizations Vaccine Route Administration Date Status Comme nts Flu Vaccine (Given in Past) Unspecified Unknown 06/24/2024 Administered Social History Tobacco Use: Social History Observation Description Date Details (start date - stop date) Never Smoker NA - NA Tobacco Control (Standard) Question Answer Notes Tobacco use: Nonsmoker Problems Problem Type SNOMED Code ICD Code Onset Dates Problem Status W/U Status Risk Notes Problem Migraine (10190209) Migraine (G43.909) Active confirmed Problem Fibromyalgia (676429574) Fibromyalgia (M79.7) Active confirmed Problem 557264912 Overweight (BMI 25.0-29.9) (E66.3) Active confirmed Vital Signs Temperature 97.9 degrees Fahrenheit 07/01/2024 Respiratory Rate 16 /min 07/01/2024 Blood pressure diastolic 70 mm Hg 07/01/2024 Height 65 in 07/01/2024 Blood pressure systolic 120 mm Hg 07/01/2024 Weight 164 lbs 07/01/2024 BMI 27.29 kg/m2 07/01/2024 Encounters Encounter Location Date Provider Diagnosis [address] [facility] [place] [address] 07/01/2024 Dari Serrano Acute non-recurrent pansinusitis J01.40 ; Fluid level behind tympanic membrane of right ear H65.91 and Overweight (BMI 25.0-29.9) E66.3 Assessments Encounter Date Diagnosis (ICD Code) Assessment Notes Treatment Notes Treatment Clinical Notes Section Notes 07/01/2024 Acute non-recurrent pansinusitis (ICD-10 - J01.40) Acute Sinusitis: Care Instructions material was published, The Sinuses: Anatomy Sketch material was published Complete the entire course of antibiotics as prescribed, even when symptoms have improved, to prevent a relapse of infection and the development of antibiotic resistance. Follow up in the clinic or with PCP in 4-5 days if no improvement or worsening of symptoms. Acute sinusitis is an inflammation of the mucous membranes inside the nose and sinuses. Sinuses are the hollow spaces in your skull around the eyes and nose. Acute sinusitis often follows a cold. Acute sinusitis causes thick, discolored mucus that drains from the nose or down the back of the throat. It also can cause pain and pressure in your head and face along with a stuffy or blocked nose. In most cases, sinusitis gets better on its own in 1 to 2 weeks. But some mild symptoms may last for several weeks. Sometimes antibiotics are needed if there is a bacterial infection. Follow-up care is a aquino part of your treatment and safety. Be sure to make and go to all appointments, and call your doctor if you are having problems. It's also a good idea to know your test results and keep a list of the medicines you take. How can you care for yourself at home?Use saline (saltwater) nasal washes. This can help keep your nasal passages open and wash out mucus and allergens.You can buy saline nose washes at a grocery store or drugstore. Follow the instructions on the package.You can make your own at home. Add 1 teaspoon of non-iodized salt and 1 teaspoon of baking soda to 2 cups of distilled or boiled and cooled water. Fill a squeeze bottle or a nasal cleansing pot (such as a neti pot) with the nasal wash. Then put the tip into your nostril, and lean over the sink. With your mouth open, gently squirt the liquid. Repeat on the other side.Try a decongestant nasal spray like oxymetazoline (Afrin). Do not use it for more than 3 days in a row. Using it for more than 3 days can make your congestion worse.If needed, take an zfaz-skj-fmjjple pain medicine, such as acetaminophen (Tylenol), ibuprofen (Advil, Motrin), or naproxen (Aleve). Read and follow all instructions on the label.If the doctor prescribed antibiotics, take them as directed. Do not stop taking them just because you feel better. You need to take the full course of antibiotics.Be careful when taking kuhi-oqa-mayajht cold or flu medicines and Tylenol at the same time. Many of these medicines have acetaminophen, which is Tylenol. Read the labels to make sure that you are not taking more than the recommended dose. Too much acetaminophen (Tylenol) can be harmful.Try a steroid nasal spray. It may help with your symptoms.Breathe warm, moist air. You can use a steamy shower, a hot bath, or a sink filled with hot water. Avoid cold, dry air. Using a humidifier in your home may help. Follow the directions for cleaning the machine.When should you call for help?< img width= 46 alt= src= https://cont ent.[facility].vt t/resources/14.3/ en-us/media/inter face/ecum-bkl-omq p_icn.jpg height= 46 >Call your doctor now or seek immediate medical care if: You have new or worse swelling, redness, or pain in your face or around one or both of your eyes.You have double vision or a change in your vision.You have a high fever.You have a severe headache and a stiff neck.You have mental changes, such as feeling confused or much less alert.Watch closely for changes in your health, and be sure to contact your doctor if: You are not getting better as expected. Patient advised that she is scheduled to have a routine colonoscopy on Wednesday. CLINICAL MANAGER advised patient to contact provider that will be completing her procedure on Wednesday prior to starting antibiotic therapy. Will send over RX, but do not start until cleared by the provider completing the colonoscopy. Patient agreeable and verbalized understanding. All questions answered. 07/01/2024 Fluid level behind tympanic membrane of right ear (ICD-10 - H65.91) Middle Ear Fluid: Care Instructions material was published There is no indication of ear infection at this visit. Consider taking OTC nasal spray for management of symptoms. 07/01/2024 Overweight (BMI 25.0-29.9) (ICD-10 - E66.3) Learning About Healthy Weight material was published Continue healthy eating and exercise. May follow up with [facility] dietitians via a telehealth visit at https://www.[employer]/servi esteban/telenutrition to help with dietary changes to lower BMI. 07/01/2024 Other Amoxicillin Oral Tablet (AMOXICILLIN - ORAL) material was published Visit summary given to and discussed with patient and/or parent who verbalizes understanding and agreement with plan of care. Thank you for your visit. Please look for the satisfaction survey that you will receive via email. We look forward to receiving your feedback regarding your experience at [facility]. Plan Of Treatment No Information Insurance Providers Payer Name Payer Address Payer Phone Subscriber Number Group Number Insured Name Patient Relationship to Insured Coverage Start Date Coverage End Date [employer] [address] [place] [address] [id number] Gem Singh Self - patient is the insured Medical (General) History Medical History History ICD Code Migraine G43.909 Fibromyalgia M79.7 Surgical History Surgery Date(Month/Year) tonsillectomy age 8 LEEP procedure Hospitalization History Reason Date(Month/Year) childbirth surgeries
--- OUTSIDE RECORDS SUMMARY | 2025-03-06 19:14 | XMS_ITS | Encounter Summary ---
Author Organization [facility] Address [address] [place] [address] Care Team Providers Care Medical Sales Representative Name Role Phone Sarah Pickard BUNDLE SHAKER Unavailable Heidi Arciniega DO Unavailable [phone] Encounter Details Date Type Department Care Team (Late st Contact Info) Description 03/14/2024 Abstract [facility] [address] [place] [address] [place] [address] Hailey Johnson LPN Social History Tobacco Use Types Packs/Day Years [...] Encounters Date Type Department Care Team (Late Contact Info) Description 04/24/2025 8:35 AM EDT Office Visit [facility] [address] [place] [phone] Taty Pa MD [address] [facility] [address] [place] [address] 03/14/2026 8:30 AM EDT Procedure Visit [facility] [address] [facility] [place] [address] Arley Millan DO [address] [facility] [address] [place], [facility] documented as of this encounter Visit Diagnoses Not on filedocumented in this encounter Care Teams Medical Sales Representative Relationship Specialty Start Date End Date Sarah Pickard NP [address] [place] [phone] Referring Physician Family Medicine 01/31/24 Heidi Arciniega DO [address] [place] [address] Referring Physician Neurology 08/14/24 documented as of this encounter
--- OUTSIDE RECORDS SUMMARY | 2025-03-06 19:14 | XMS_ITS | Clinical Summary ---
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 Unavailable Heidi Arciniega DO Unavailable [phone] Allergies Active Allergy Reactions Criticality Noted Date Comments Clarithromycin Unknown,Hives High 12/01/2013 tachycardia, chest/back burning, htn Other Reaction(s): Intolerance tachycardia, chest/back burning, htn Sulfa Antibiotics GI intolerance,Unknown,H elke High 12/01/2013 tachycardia, chest/back burning pain, indigestion, htn Topiramate Other 06/08/2023 Medications SUMAtriptan (Imitrex) 100 MG tablet TAKE 1 TABLET BY MOUOTH AT ONSET OF MIGRAINE, MAY REPEAT AFTER 2 HOURS NEEDED, MAX 2 PER DAY 2 DAYS A WEEK NEEDED FOR MIGRAINE 3 Active omeprazole (PriLOSEC) [address] capsule Take 40 mg by mouth in the morning. Take before meals. Do not crush or chew. . Active cholecalciferol (Vitamin D-3) 25 MCG (1000 UT) capsule Take 1,000 Units by mouth in the morning. Active Cyanocobalamin (Vitamin B 12) 100 MCG lozenge Orally Acti ve MAGNESIUM PO Take by mouth twice a day. Active Prasterone, DHEA, 10 MG capsule Orally Active triamcinolone (Nasacort Allergy 24HR) 55 MCG/ACT nasal inhaler [place] 2 sprays every day by intranasal route. Active cyclobenzaprine (Flexeril) 5 MG tabletIndication s:Cervicalgia TAKE 1 & 1/2 (ONE & ONE-HALF) TABLETS BY MOUTH TWICE DAILY NEEDED FOR MUSCLE SPASMS 90 tablet 5 4 Active fexofenadine (Lexi Allergy) 60 MG tablet Take by mouth 4 Active amitriptyline (Elavil) 75 MG tabletIndication s:Nonintractable headache, unspecified chronicity pattern, unspecified headache type Take 1 tablet (75 mg) by mouth at bedtime 30 tablet 5 4 Active Active Problems Problem Noted Date Diagnosed Date Myalgia 01/31/2024 Primary insomnia 01/28/2024 Paresthesia of skin 01/28/2024 Carpal tunnel syndrome of left wrist 01/28/2024 Carpal tunnel syndrome of right wrist 01/28/2024 Cervicalgia 05/04/2017 Fibromyalgia 05/04/2017 Muscle spasm 05/04/2017 Headache 10/06/2016 Variants of migraine 10/06/2016 Overview (01/28/2024): not elsewhere classified; without mention of intractable migraine without mention of status migrainosus; without mention of refractory migraine without mention of status migrainosus Common migraine 10/06/2016 Tension headache 10/06/2016 Carpal tunnel syndrome 08/06/2009 Radiculopathy, lumbosacral region 08/06/2009 Encounters Date Type Department Care Team Description 03/06/2025 3:00 PM EDT Office Visit [facility] [address] [place] [address] Zandra Dozier PA Well woman exam with routine gynecological exam; Encounter for screening mammogram for malignant neoplasm of breast; Postmenopausal state 03/06/2025 Bamboo flowsheet [facility] [address] [place] [address] Zandra Dozier PA 01/04/2025 Telephone [facility] [address] [place] [phone] Heidi Arciniega, DO Possible Injection 12/12/2024 9:00 AM EDT Office Visit [facility] [address] [place] [phone] Payton Chaparro PA Carpal tunnel syndrome of left wrist (Primary Dx); Nonintractable headache, unspecified chronicity pattern, unspecified headache type; Carpal tunnel syndrome of right wrist; Paresthesia of skin 12/12/2024 Bamboo flowsheet [facility] [address] [place] [address] Payton Chaparro PA 12/05/2024 Travel from Last 3 Months Family History Medical History Relation Name Comments Cancer Father Hypertension Father Arthritis Mother Caitlyn Galvan Diabetes Mother Caitlyn Galvan Migraines Mother Caitlyn Galvan Polymyalgia rheumatica Mother Caitlyn Galvan Stroke Mother Caitlyn Galvan Melanoma Sister Relation Name Status Comments Father Mother Caitlyn Galvan Alive Sister Social History Tobacco Use Types Packs/Day Years [...] on file Sexual Orientation Not on file Last Filed Vital Signs Vital Sign Reading Time Taken Comments Blood Pressure 122/86 03/06/2025 3:12 PM EDT Pulse 84 12/12/2024 8:59 AM EDT Temperature - - Respiratory Rate 16 12/12/2024 8:59 AM EDT Oxygen Saturation 94% 12/12/2024 8:59 AM EDT Inhaled Oxygen Concentration - - Weight 81.8 kg (180 lb 4 oz) 03/06/2025 3:12 PM EDT Height 162.6 cm (5' 4 ) 12/12/2024 8:59 AM EDT Body Mass Index 30.94 12/12/2024 8:59 AM EDT Plan of Treatment Upcoming Encounters Date Type Department Care Team (Late st Contact Info) Description 04/24/2025 8:35 AM EDT Office Visit [facility] [address] [place] [address] Taty Pa MD [address] [place] [address] 03/14/2026 8:30 AM EDT Procedure Visit [facility] [address] [facility] [place] [address] Arley Millan, DO [address] [place] [address] Health Maintenance Due Date Last Done Comments CT Colonography 1968 Colonoscopy 1970 Colorectal Cancer Screening 1968 FIT-DNA 1968 FIT 1968 FOBT 1970 Sigmoidoscopy 1970 Mammogram 02/06/2025 02/07/2024, 01/20/2023 Influenza Vaccine (#1) 2025 4, 05/29/2023, 06/10/2022, Additional history exists Cervical Cancer Screening 04/02/2028 HPV/Cotest 04/02/2028 04/02/2023 Pap Smear 04/02/2028 04/02/2023 Procedures Procedure Name Priority Date/Time Associated Diagnosis Comments MM TOMOSYNTHESIS SCREENING BI 02/07/2024 2:17 PM EDT THINPREP PAP AND HPV MRNA E6/E7 W/RFL HPV 16,18/45 Routine 04/02/2023 12:34 PM EDT Well woman exam with routine gynecological exam PAP SMEAR Routine 04/02/2023 12:00 AM EDT from Last 3 Months or Most Recently Relevant to Health Maintenance Results * MM TOMOSYNTHESIS SCREENING BI (02/07/2024 2:17 PM EDT) Anatomical Region Laterality Modality Other 02/07/2024 2:17 PM EDT Narrative 02/07/2024 2:18 PM EDT [facility] [place] [id number] M[facility] Report Signed Patient: LONNIE CARRERA MR#: [id number] : 1970 Acct:[id number] Age/Sex: 53 / F ADM Date: 02/07/24 Loc: MAMMO Attending Dr: Arley Millan D.O. Ordering Physician: Arley Millan D.O. Results: Date of Service: 02/07/24 Follow Up: Procedure(s): MM tomosynthesis screening BI Accession Number(s): [id number] cc: Arley Millan D.O.; Physician,Non-Staff Avi Patient Name: LONNIE CARRERA MR#: [id number] : 1970 Exam Date: 02/07/2024 Ordering Doctor: [...] lymphoma cancer at age 68. 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 Ordering Physician: Arley Millan D.O.Results: Date of Service: 02/07/24Follow Up: Procedure(s): MM tomosynthesis screening BI Accession Number(s): [id number] cc: Arley Millan D.O.; Physician,Non-Staff Avi Patient Name: LONNIE CARRERA MR#: [id number] : 1970 Exam Date: 02/07/2024 Ordering Doctor: [...] lymphoma cancer at age 68. LOCATION: [facility] BREAST COMPOSITION: The breasts are heterogeneously [...] Xavier Davison M.D. 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 Arley Monty DO [facility] Final Result * THINPREP PAP AND HPV MRNA E6/E7 W/RFL HPV 16,18/45 (04/02/2023 12:34 PM EDT) us Arley Monty DO LAB BLOOD ORDERABLES Final Resul t EXTERNAL LAB * Pap Smear (04/02/2023 12:00 AM EDT) Swab Cervical swab / Unknown Arley Monty DO LAB CYTOLOGY ORDERABLES Final Re sult EXTERNAL LAB from Last 3 Months or Most Recently Relevant to Health Maintenance Insurance [facility] Care Teams University Relations Vice President Relationship Specialty Start Date End Date Sarah Pickard NP [address] [place] [phone] Referring Physician Family Medicine 01/31/24 Heidi Arciniega DO [address] [place] [address] Referring Physician Neurology 08/14/24
--- OUTSIDE RECORDS SUMMARY | 2025-03-06 19:18 | XMS_ITS | CCD ---
Author Organization [facility] Care Team Providers Care Grey Tender Name Role Phone Alfonso Pinto Primary Care Provider [phone] SMITH[address] ., DR GASTELUM Attending Unavailable SMITHA ., DR GASTELUM Consulting Unavailable SMITHA ., DR GASTELUM Admitting Unavailable SMITHA ., DR GASTELUM Admitting Unavailable [facility] [place], DR CAMPBELL Primary Care Unavailable SMITHA ., DR GASTELUM Attending Unavailable SMITHA ., DR GASTELUM Consulting Unavailable Sarah Pickard Primary Care Physician [phone] eMenu Luna Admitting Unavailable Meenu Luna Attending Unavailable Meenu Luna Referring Unavailable Meenu Luna Attending Unavailable Sarah Pickard Referring Unavailable Neeraj [employer] ARCHITECT, Sarah Unavailable Eva Snata DO Unavailable Sarah Pickard Primary Care Provider [phone] Shivam Moore MD Attending Provider [phone] Zandra Gibbons Primary Care Physician [phone] VICKY LEIVA Attending Unavailable ZANDRA GIBBONS Referring Unavailable DELFINA SCHOFIELD Attending Unavailable DELFINA SCHOFIELD Attending Unavailable EVA SANTA Attending Unavailable PAYTON CHAPARRO Attending Unavailable Sarah Pickard Primary Care Provider Shivam Moore MD Attending Provider [phone] Walter Hernandez MD Attending Provider [phone] Sarah Pickard Primary Care Unavailable Walter Hernandez Attending Unavailable Walter Hernandez Admitting Unavailable Shivam Moore Attending Unavailable Shivam Moore Admitting Unavailable Sarah Pickard Primary Care Unavailable Allergies Allergy Classification Reported Allergen(s) Allergy Type Date of Onset Reaction(s) Facility Macrolides (antibiotic) (1 source) Clarithromycin Drug Allergy 12-02-19 14 Intolerance [facility] Sulfonamides (antibiotic) (1 source) Sulfonamides (Antibiotic) Drug Allergy 12-02-19 14 Other: See Comments [facility] (2 sources) Clarithromycin; Translations: [Biaxin] Drug Allergy [facility] (1 source) Sulfonamides (Antibiotic) Drug allergy (disorder) 06-27-20 15 [facility] (5 sources) Clarithromycin; Translations: [clarithromycin] Drug Allergy 12-21-19 25 Unknown Reaction [facility] (4 sources) topiramate; Translations: [topiramate] Drug Allergy [facility] (2 sources) Sulfonamides (Antibiotic); Translations: [sulfa drugs] Propensity to adverse reactions (disorder) [facility] Rep[facility] (12 sources) Clarithromycin Allergy to substance 12-02-19 14 Unknown, Hives [facility] Healthcare Work Phone: (12 sources) Sulfonamides (Antibiotic) Drug Allergy 12-02-19 14 GI intolerance, Unknown, Hives [facility] (12 sources) Topiramate Allergy to substance 06-08-20 23 Other [facility] (3 sources) Sulfonamides (Antibiotic); Translations: [Sulfa (Sulfonamide Antibiotics)] Allergy to substance 12-21-19 25 Unknown Reaction [facility] (1 source) Clarithromycin Drug Allergy 01-02-20 25 [facility] Repository Medications Current Medications Medication Drug Class(es) Dates Sig (Normalized) Sig (Original) amitriptyline hydrochloride 75 mg oral tablet (20 sources) Tricyclic Antidepressant Start: 01-31-2024 End: 08-14-2024 take 1 tablet by mouth at bedtime amitriptyline (Elavil) 75 MG tablet Indications: Nonintractable headache, unspecified chronicity pattern, unspecified headache type Take 1 tablet (75 mg) by mouth at bedtime 30 tablet 5 08/14/2024 Active Calcium (3 sources) Phosphate Binder, Calcium Start: 10-20-2011 Calcium 600+D Oral, TID, Refill(s) 0, Prophylaxis Start Date: 10/20/11 Status: Ordered Repeat number: 1 Start: 10-20-2011 Calcium 600+D Oral, TID, Refill(s) 0, Prophylaxis Start Date: 10/20/11 Status: Ordered Start: 10-20-2011 Calcium 600+D Oral, TID, Refill(s) 0 Start Date: 10/20/11 Status: Ordered cholecalciferol 0.025 mg oral capsule (13 sources) Vitamin D take 1 capsule by mouth in the morning cholecalciferol (Vitamin D-3) 25 MCG (1000 UT) capsule Take 1,000 Units by mouth in the morning. Active take 1 capsule by mouth once mikhail ly Cholecalciferol, Vitamin D3, (VITAMIN D) 1,000 unit cap Take 1,000 Units by mouth once daily. 0 Active Comment on above: Take 1,000 Units by mouth once daily. cyclobenzaprine hydrochloride 10 mg oral tablet (16 sources) Muscle Relaxant Start: 04-17-20 24 take 1 tablet by mouth three times daily as needed for muscle spasms cyclobenzaprine 10 mg Tab 10 mg = 1 tab(s), Oral, TID, PRN for spasm, # 30 tab(s), Refills(s) 0 Start Date: 04/17/24 Status: Ordered Quantity: 30.0 Unit: tab(s) Repeat number: 1 Start: 02-03-2024 take 1 tablet by vania twice daily as needed for muscle spasms cyclobenzaprine (Flexeril) 5 MG tablet Indications: Cervicalgia TAKE 1 & 1/2 (ONE & ONE-HALF) TABLETS BY MOUTH TWICE DAILY NEEDED FOR MUSCLE SPASMS 90 tablet 5 02/03/2024 Active cyclobenzaprine 10 mg tablet Take 10 mg by mouth as needed. 0 Active Comment on above: Take 10 mg by mouth as needed. famotidine 10 mg oral tablet (4 sources) Histamine-2 Receptor Antagonist Start: 4 take 1 tablet by mouth once daily at bedtime Famotidine (Pepcid Ac) 10 mg tablet Active 10 MG PO Daily at bedtime June 20, 2024 12:00am fexofenadine hydrochloride 180 mg oral tablet (16 sources) Histamine-1 Receptor Antagonist Start: 5 take 1 tablet by mouth once daily Fexofenadine (Lexi Allergy) 180 mg tablet Active 180 MG PO Daily December 20, 2024 12:00am Start: 04-17-2024 Lexi Oral, Refills(s) 0 Start Date: 04/17/24 Status: Ordered Repeat number: 1 Start: 04-17-2024 Lexi Oral, Refills(s) 0 Start Date: 04/17/24 Status: Ordered Start: 04-17-2024 fexofenadine ( Lexi Allergy) 60 MG tablet Take by mouth 04/17/2024 Active ibuprofen 800 mg oral tablet (4 sources) Nonsteroidal Anti-inflammatory Drug Start: 10-20-2011 take 1 tablet by mouth three times daily ibuprofen 800 mg Tab 800 mg = 1 tab(s), Oral, TID, Refills(s) 0, Headache Start Date: 10/20/11 Status: Ordered Repeat number: 1 take 1 tablet by mouth once susanne y ibuprofen 800 mg tablet Take 800 mg by mouth once daily. 0 Active Comment on above: Take 800 mg by mouth once daily. loratadine 10 mg oral tablet (4 sources) End: 08-14-2024 loratadine (Claritin) 10 MG tablet 1 (one) time each day at the same time. 08/14/2024 Discontinued (Therapy completed) Comment on above: Take 10 mg by mouth once daily. Magnesium (16 sources) Start: 10-20-2011 magnesium 100 mg oral tablet Refills(s) 0, Prophylaxis Start Date: 10/20/11 Status: Ordered Repeat number: 1 Start: 10-20-2011 magnesium 100 mg oral tablet Refills(s) 0, Prophylaxis Start Date: 10/20/11 Status: Ordered MAGNESIUM PO Yifan e by mouth twice a day. Active Magnesium 500 mg tab Take by mouth twice daily. 0 Active Comment on above: Take by mouth twice daily. methylPREDNISolone (4 sources) Corticosteroid Start: 12-12-2024 End: 12-19-2024 methylPREDNISolone (Medrol Dospak) 4 MG tablets Indications: Nonintractable headache, unspecified chronicity pattern, unspecified headache type , Carpal tunnel syndrome of right wrist Follow schedule on package instructions 21 tablet 12/12/2024 12/19/2024 Active Start: 08-28-2024 End: 08-28-2024 methylPREDNISolone acetate ( DEPO-Medrol) injection 80 mg Start: 08-28-2024 End: 08-28-2024 80 mg, Intra-articular, Once PRN Procedure, Starting on Wed08/28/24 at 1609, For 1 dose omeprazole 20 mg delayed release oral capsule (19 sources) Proton Pump Inhibitor Start: 04-17-2024 take 1 capsule by mouth once daily Omeprazole 20 mg capsule,delayed release(DR/EC) Active 20 MG PO Daily June 20, 2024 12:00am take 1 capsule by mouth before m ealtime omeprazole (PriLOSEC) [address] capsule Take 40 mg by mouth in the morning. Take before meals. Do not crush or chew. . Active polyethylene glycol 3350 23349 mg powder for oral solution (6 sources) Osmotic Laxative Start: 08-04-2022 End: 08-14-2024 take 17 g by mouth once MiraLax 17 GM/SCOOP powder Take 17 g by mouth 1 (one) time. 08/04/2022 08/14/2024 Discontinued (Therapy completed) Start: 08-04-2022 Miralax 3350 1 7 gram packet 17 gm, Oral, Daily, 2 capfuls daily for the next 3 days and then 1 capful daily for 1 week., # 527 gm, Refills(s) 0, Pharmacy: [id number], 162, cm, 08/04/22 9:39:00 EST, Height/Length Dosing, 80, kg, 08/04/22 9:39:00 EST, Weight Dosing Start Date: 08/04/22 Status: Ordered Quantity: 527.0 Unit: g Repeat number: 1 prasterone 10 mg oral capsule (12 sources) Prasterone, DHEA , 10 MG capsule Orally Active 0.25 mg, 0.5 mg dose 1.5 ml semaglutide 1.34 mg/ml pen injector (3 sources) End: 08-14-20 inject 0.25 mg by subcutaneous injection every week semaglutide (Ozempic, 0.25 or 0.5 MG/DOSE,) 2 MG/1.5ML solution pen-injector Inject 0.25 mg under the skin once a week. 08/14/2024 Discontinued (Therapy completed) Imitrex (15 sources) Serotonin-1b and Serotonin-1d Receptor Agonist Start: 04-17-20 Imitrex Once, Refills(s) 0, Migraine headache Start Date: 04/17/24 Status: Ordered Repeat number: 1 Start: 04-17-2024 Imitrex Once, Refills(s) 0, Migraine headache Start Date: 04/17/24 Status: Ordered Start: 04-17-2024 Imitrex Once, Refills(s) 0 Start Date: 04/17/24 Status: Ordered Start: 10-27-2022 take 1 tablet by vania th every two hours as needed, then take 2 tablets by mouth once daily as needed SUMAtriptan (Imitrex) 100 MG tablet TAKE 1 TABLET BY MOUOTH AT ONSET OF MIGRAINE, MAY REPEAT AFTER 2 HOURS NEEDED, MAX 2 PER DAY 2 DAYS A WEEK NEEDED FOR MIGRAINE 10/27/2022 Active triamcinolone acetonide 0.055 mg/actuat metered dose nasal spray (12 sources) Corticosteroid take 2 spray(s) by inhalation once daily triamcinolone (Nasacort Allergy 24HR) 55 MCG/ACT nasal inhaler [place] 2 sprays every day by intranasal route. Active vitamin b12 0.1 mg oral lozenge (12 sources) Vitamin B12 Cyanocobalamin (Vitamin B 12) 100 MCG lozenge Orally Active Vitamin D3 (3 sources) Start: 10-20-19 12 Vitamin D3 Oral, Refills(s) 0, Prophylaxis Start Date: 10/20/11 Status: Ordered Repeat number: 1 Start: 10-20-2011 Vitamin D3 Ora l, Refills(s) 0, Prophylaxis Start Date: 10/20/11 Status: Ordered Completed/Discontinued Medications Medication Drug Class(es) Dates Sig (Normalized) Sig (Original) bupivacaine hydrochloride 2.5 mg/ml injectable solution (2 sources) Amide Local Anesthetic Start: 08-28-2024 End: 08-28-2024 bupivacaine (Marcaine) 0.25 % injection 2 mL Start: 08-28-2024 End: 08-28-2024 2 mL, Once PRN Procedure, St [place]ting on 08/28/24 at 1609, For 1 dose Calcium Carbonate (1 source) CALCIUM CARBONAT E (CALCIUM 600 ORAL) Take by mouth once daily. 0 Active Comment on above: Take by mouth once d aily. multivitamin tablet (1 source) multivitamin tab let Take 1 tablet by mouth once daily. Woman's One A Day once daily 0 Active Comment on above: Take 1 tablet by [facility] once daily. Woman's One A Day once daily [place]-3 Fatty Acids-Vitamin E (FISH OIL) 1,000 mg cap (1 source) take 1 capsule by mouth twice daily [place]-3 Fatty Acids-Vitamin E (FISH OIL) 1,000 mg cap Take 1 capsule by mouth twice daily. 0 Active Comment on above: Take 1 capsule by mo [facility] twice daily. oseltamivir 75 mg oral capsule (2 sources) Neuraminidase Inhibitor Start: 11-07-19 End: 12-21-19 take 1 capsule by mouth once daily Oseltamivir (Tamiflu) 75 mg capsule Discontinued 75 MG PO Daily 7 November 06, 2024 12:00am December 20, 2024 12:47pm polyethylene glycol 3350 401432 mg / potassium chloride 2970 mg / sodium bicarbonate 6740 mg / sodium chloride 5860 mg / sodium sulfate 84648 mg powder for oral solution (1 source) Osmotic Laxative Start: 12-27-19 End: 01-02-20 take 1 capsule by mouth once Peg 3350-Electrolytes (Golytely) 236-22.74-6.74 -5.86 gram recon soln Discontinued 240 ML PO Once 4000 December 26, 2024 12:00am January 01, 2025 9:05am At 4pm add lukewarm drinking water to the fill pat on the jug, secure cap on the jug and shake vigorously to mix. Begin drinking until you finish entire contents. potassium gluconate 2.5 meq oral tablet (1 source) Potassium 99 mg tab Take by mouth once daily. Takes two once daily 0 Active Comment on above: Take by mouth once d aily. Takes two once daily Sod Picosulf-Mag Ox-Citric Ac (4 sources) Start: 12-23-19 End: 12-27-19 Sod Picosulf-Mag Ox-Citric Ac (Clenpiq) 10 mg-3.5 gram- 12 gram/175 mL solution Discontinued 175 ML PO Daily 350 December 22, 2024 12:00am December 26, 2024 10:39am take first dose at 3:00 PM followed by four 8oz glasses of liquid take second dose at 9:00 PM followed by 3 8oz glasses of liquid, please dispense 2 kits for 2 day bowel prep Start: 12-22-2024 Sod Picosulf-M ag Ox-Citric Ac (Clenpiq) 10 mg-3.5 gram- 12 gram/175 mL solution Active 175 ML PO Daily 350 2 December 22, 2024 12:00am take first dose at 3:00 PM followed by four 8oz glasses of liquid take second dose at 9:00 PM followed by 3 8oz glasses of liquid, please dispense 2 kits for 2 day bowel prep Start: 11-17-2024 End: 12-20-2024 Sod Picosulf-Mag Ox-Citric A c (Clenpiq) 10 mg-3.5 gram- 12 gram/175 mL solution Discontinued 175 ML PO .COMPLEX 350 1 November 17, 2024 12:00am December 20, 2024 12:47pm Follow instructions given by office VITAMIN B COMPLEX & VIT C NO.4 (SUPER B COMPLEX + C ORAL) (1 source) VITAMIN B COMPLE X & VIT C NO.4 (SUPER B COMPLEX + C ORAL) Take by mouth once daily. 0 Active Comment on above: Take by mouth once d aily. Problems Active Problems Problem Classification Problem Date Documented Date Episodic/Chronic Disorders of lipid metabolism (3 sources) Hypercholesterolemia 02-08-2014 Chronic Esophageal disorders (7 sources) Gastroesophageal reflux disease without esophagitis; Translations: [Gastro-esophageal reflux disease without esophagitis] 06-20-2024 Chronic Headache; including migraine (20 sources) Migraine; Translations: [Migraine variants] Onset: 10-06-19 17 11-03-2013 Chronic Miscellaneous mental health disorders (12 sources) Primary insomnia; Translations: [Primary insomnia] Onset: 01-28-20 24 01-28-2024 Chronic Other and unspecified benign neoplasm (2 sources) Melanocytic nevus of trunk; Translations: [Melanocytic nevi of trunk] 10-17-2024 Episodic Other and unspecified benign neoplasm (2 sources) Lipoma of right lower limb; Translations: [Benign lipomatous neoplasm of skin and subcutaneous tissue of right leg] 10-17-2024 Episodic Other circulatory disease (2 sources) Spider nevus; Translations: [Nevus, non-neoplastic] 10-17-2024 Episodic Other connective tissue disease (3 sources) Fibromyalgia; Translations: [Myalgia and myositis, unspecified] 06-20-2024 Episodic Other gastrointestinal disorders (1 source) Other constipation; Translations: [Other constipation] Onset: 04-17-20 Episodic Other gastrointestinal disorders (1 source) Swollen abdomen; Translations: [Abdominal distension (gaseous)] Onset: 04-17-20 Episodic Other gastrointestinal disorders (3 sources) Abdominal bloating 04-17-2024 Episodic Other gastrointestinal disorders (3 sources) Chronic constipation 04-17-2024 Episodic Other nervous system disorders (4 sources) Narcolepsy without cataplexy ; Translations: [Narcolepsy without cataplexy] 06-20-2024 Chronic Other nervous system disorders (3 sources) Narcolepsy without cataplexy; Translations: [Narcolepsy, without cataplexy] 06-20-2024 Chronic Other nervous system disorders (12 sources) Carpal tunnel syndrome; Translations: [Carpal tunnel syndrome, unspecified upper limb] Onset: 08-06-20 09 01-28-2024 Chronic Other nervous system disorders (16 sources) Carpal tunnel syndrome of left wrist; Translations: [Carpal tunnel syndrome, left upper limb] Onset: 01-28-2001-28-2024 Chronic Other nervous system disorders (16 sources) Carpal tunnel syndrome of right wrist; Translations: [Carpal tunnel syndrome, right upper limb] Onset: 01-28-2001-28-2024 Chronic Other nervous system disorders (2 sources) Bilateral carpal tunnel syndrome; Translations: [Carpal tunnel syndrome, bilateral upper limbs] 08-28-2024 Chronic Other nutritional; endocrine; and metabolic disorders (2 sources) Body mass index 30+ - obesity; Translations: [Body mass index (BMI) 30.0-30.9, adult] 12-22-2024 Chronic Other nutritional; endocrine; and metabolic disorders (2 sources) Body mass index (BMI) 30.0-30.9, adult; Translations: [Body Mass Index 30.0-30.9, adult] 12-22-2024 Chronic Other nutritional; endocrine; and metabolic disorders (4 sources) Overweight in adulthood with body mass index of 25 or more but less than 30; Translations: [Body mass index (BMI) 27.0-27.9, adult] 06-20-2024 Episodic Other nutritional; endocrine; and metabolic disorders (1 source) Body mass index (BMI) 27.0-27.9, adult; Translations: [Body Mass Index 27.0-27.9, adult] 06-20-2024 Episodic Other screening for suspected conditions (not mental disorders or infectious disease) (6 sources) Encounter for screening for malignant neoplasm of cervix; Translations: [Screening for malignant neoplasm of colon done] Onset: 02-18-20 Episodic Other skin disorders (2 sources) Lentiginosis; Translations: [Other melanin hyperpigmentation] 10-17-2024 Episodic Other skin disorders (2 sources) Lichenoid actinic keratosis; Translations: [Inflamed seborrheic keratosis] 10-17-2024 Episodic Other skin disorders (2 sources) Seborrheic keratosis; Translations: [Other seborrheic keratosis] 10-17-2024 Episodic Residual codes; unclassified (4 sources) Sleep apnea; Translations: [Sleep apnea, unspecified] 06-20-2024 Chronic Residual codes; unclassified (4 sources) Daytime somnolence; Translations: [Other hypersomnia] 06-20-2024 Chronic Residual codes; unclassified (3 sources) Other hypersomnia; Translations: [Hypersomnia, unspecified] 06-20-2024 Chronic Residual codes; unclassified (4 sources) Sleep apnea, unspecified; Translations: [Unspecified sleep apnea] Onset: 10-16-1906-20-2024 Chronic Residual codes; unclassified (2 sources) Hypoxia; Translations: [Idiopathic sleep related nonobstructive alveolar hypoventilation] 12-22-2024 Chronic Residual codes; unclassified (2 sources) Idiopathic sleep related nonobstructive alveolar hypoventilation; Translations: [Idiopathic sleep related non-obstructive alveolar hypoventilation] 12-22-2024 Chronic Residual codes; unclassified (4 sources) Hypnagogic hallucinations; Translations: [Other hallucinations] 06-20-2024 Episodic Residual codes; unclassified (3 sources) Other hallucinations; Translations: [Hallucinations] 06-20-2024 Episodic Past or Other Problems Problem Classification Problem Date Documented Date Episodic/Chronic Headache; including migraine (16 sources) Headache; Translations: [Headache] Onset: 10-06-2016 01-28-2024 Episodic Immunizations and screening for infectious disease (1 source) Encounter for screening for human papillomavirus (HPV); Translations: [ENC SCREENING HUMAN PAPILLOMAVIRUS] Onset: 02-19-2022 Episodic Other connective tissue disease (20 sources) Fibromyalgia; Translations: [Fibromyalgia] Onset: 12-01-2013 12-01-2013 Episodic Other connective tissue disease (12 sources) Spasm; Translations: [Other muscle spasm] Onset: 05-04-2017 01-28-2024 Episodic Other connective tissue disease (12 sources) Muscle pain; Translations: [Myalgia, unspecified site] Onset: 01-31-2024 01-31-2024 Episodic Other nervous system disorders (16 sources) Paresthesia; Translations: [Paresthesia of skin] Onset: 01-28-2024 01-28-2024 Episodic Spondylosis; intervertebral disc disorders; other back problems (20 sources) Neck pain; Translations: [Cervicalgia] Onset: 08-06-2009 01-28-2024 Episodic Results Test Name Value Interpretation Reference Range Facility Pathology Request for Lab Co rpon 01-01-2025 Pathology Request for Lab Anjali Normal [facility] Comment on above: Order Comment: MIKE CORONA ECKARINAN Result Comment: See report. Scanned copy available in EMR. PERFORMED BY: [place] [id number] PATHOLOGIST PROCESS DESIGNER LUIS NEWTON M.D. Performed By: #### P ATH TO [facility] #### [address] US GALLBLADDERon 11-16-2024 US GALLBLADDER EXAM: Gallbladder Ultrasound. REASON FOR EXAM: Indigestion. COMPARISON: None TECHNIQUE: Schaeffer scale, color doppler, and spectral analysis of the abdomen was performed. FINDINGS: The pancreas is homogeneous and normal in appearance. The liver is increased in echogenicity. There is an area of focal hypoechogenicity in the liver right lobe near the gallbladder measuring 3.2 cm, likely focal fatty sparing. The gallbladder appears unremarkable with no visible gallstones. There is no bile duct dilation. The right kidney has a normal morphology as seen. Measurements: Common Bile Duct: 0.35 cm Gallbladder Wall: 0.20 cm Right Kidney: 9.6 x 5.4 x 4.4 cm Liver Length: 15.3 cm IMPRESSION: 1. Steatosis of the liver with focal fatty sparing near the gallbladder. 2. No gallstones or bile duct dilation. *This report is generated using voice recognition reporting ([employer]). On occasion PowerScribe erroneously drops words from the report or replaces the spoken word with similar sounding words. Please call with any questions/concerns regarding this report.* Dictated and transcribed 11/16/2024/tm This report has been electronically signed and approved by the interpreting radiologist. Normal Not Available Hand / Upper Extremity Injec tion/Arthrocentesis: bilateral carpal tunnelon 08-28-2024 Eva Santa DO 08/28/2024 4:41 PM Hand / Upper Extremity Injection/Arthrocentes is: bilateral carpal tunnel for carpal tunnel syndrome on 08/28/2024 4:09 PM Indications: pain Medications (Right): 2 mL bupivacaine 0.25 %; 80 mg methylPREDNISolone acetate 40 MG/ML Procedure, treatment alternatives, risks and benefits explained, specific risks discussed. Consent was given by the patient. Patient was prepped and draped in the usual sterile fashion. [facility] Main OR Preoperative Recordo n 07-03-2024 Main OR Preoperative Record Main OR Preoperative Record Holding Area Document Type FT Summary Primary Physician: Meenu Luna MD Finalized Date/Time: 07/03/24 08:35:54 Pt. Name: ABRAHAMGEM GATES/Sex: 1970 Female Med Rec #: [id number] Physician: Meenu Luna MD Financial #: [id number] Pt. Type: O Room/Bed: / Admit/Disch: 07/03/24 07:08:47 - Institution: Case Times Holding FT Pre-Care Text: Verifies consent for planned procedure, identifies individual values and wishes concerning care, includes family members in perioperative teaching Secures patient's records' belongings, and valuables, maintains patient's dignity and privacy, and maintains patient confidentiality Entry 1 In Holding 07/03/24 07:15:00 Outcomes Met? Yes Last Modified By: Glo BENITEZ, Fernanda Bal 07/03/24 07:34:20 Post-Care Text: The patient participates in decisions affecting his or her perioperative plan of care The patient's right to privacy is maintained Surgery Checklist FT Entry 1 Patient Birthday, ID Band Procedure History and Physical, Identification: Check, Patient Verification: Surgical Consent, With Participation Patient NPO after Midnight: Yes Date/Time: 07/03/24 03:30:00 Personal Items: Glasses Personal Items glasses, clothes, shoes Comment: Limitations: n/a Complaints of Pain: No Pain Comment: denies Operative Site n/a Marking: Marked By: n/a Availability Equipment Verified: Does Patient Smoke No Patient states Yes Comment - Adult Mark- spouse postop adult Supervision supervision available Case Cancelled in Yes Case Cancelled case cancelled in pre Holding Area see Comment op per Dr. Luna due comments below for to poor prep reason Last Modified By: Fernanda Cody RN 07/03/24 08:35:53 General Comments: Pt finished colon prep at 0330, states stool is liquid lake, has been NPO since. /MDRN Finalized By: Fernanda Cody RN Document Signatures Signed By: Fernanda Cody RN 07/03/24 07:35 Fernanda Cody RN 07/03/24 08:35 Normal [facility] Ambulatory Visit Summaryon 0 04-17-2024 Ambulatory Visit Summary Ambulatory Visit Summary FRANCISCO GEM Domingo :1970 Visit Date:04/17/2024 Ambulatory Visit Instructions Your Diagnosis Screen for colon cancer Chronic constipation Bloating Your Care Team Attending Physician - Meenu Luna MD Primary Care Physician - Sarah Pickard CNP Referring Physician - Sarah Pickard CNP This Is Your Medications List Contact prescribing physician if questions or concerns amitriptyline (amitriptyline 75 mg oral tablet) calcium-vitamin D (Calcium 600+D) cholecalciferol (Vitamin D3) cyclobenzaprine (cyclobenzaprine 10 mg Tab) fexofenadine (Lexi) ibuprofen (ibuprofen 800 mg Tab) magnesium oxide (magnesium 100 mg oral tablet) omeprazole (omeprazole 20 mg Cap-DR) polyethylene glycol 3350 (Miralax 3350 17 gram packet) sumatriptan (Imitrex) Procedures Performed Colonoscopy. Discharge Vitals Heart Rate (Peripheral) 89 Blood Pressure 125/74 Height 162.5 cm Height 64 in Weight 64 kg Weight 140.8 lb BMI 24.24 Medications What How Much When Instructions Unchanged amitriptyline (amitriptyline 75 mg oral tablet) By Mouth Once a day (at bedtime) Contact prescribing physician if questions or concerns Unchanged calcium-vitamin D (Calcium 600+D) By Mouth 3 times a day Contact prescribing physician if questions or concerns Unchanged cholecalciferol (Vitamin D3) By Mouth Contact prescribing physician if questions or concerns Unchanged cyclobenzaprine (cyclobenzaprine 10 mg Tab) 1 Tablets By Mouth 3 times a day as needed for for spasm Contact prescribing physician if questions or concerns Unchanged fexofenadine (Lexi) By Mouth Contact prescribing physician if questions or concerns Unchanged ibuprofen (ibuprofen 800 mg Tab) 1 Tablets By Mouth 3 times a day Contact prescribing physician if questions or concerns Unchanged magnesium oxide (magnesium 100 mg oral tablet) Contact prescribing physician if questions or concerns Unchanged omeprazole (omeprazole 20 mg Cap-DR) By Mouth Every day OTC Contact prescribing physician if questions or concerns Unchanged polyethylene glycol 3350 (Miralax 3350 17 gram packet) 17 Gram By Mouth Every day 2 capfuls daily for the next 3 days and then 1 capful daily for 1 week. Contact prescribing physician if questions or concerns Unchanged sumatriptan (Imitrex) Once Contact prescribing physician if questions or concerns Medications and Immunizations Administered Not Given influenza virus vaccine, inactivated, Patient Refuses Allergies Biaxin Topamax Problems Ongoing - Any problem that you are currently receiving treatment for. Bloating Chronic constipation Fibromyalgia MIGRAINE Historical - Any problem that you are no longer receiving treatment for. high cholesterol Patient Survey You may receive a survey via text or e-mail asking about your office visit. Please share your experience with us by completing your survey. We appreciate your feedback and thank you for choosing us for your care. Normal [facility] Gastroenterology Office/Clin ic Noteon 04-17-2024 Gastroenterology Office/Clinic Note Gastroenterology Office/Clinic Note Chief Complaint Colnoscopy HPI Staff This is a 53 year old female who presents today for a screening colonoscopy. Denies Blood Thinners Denies any family history of colon cancer/polyps or IBD Denies Dysphagia, abdominal pain, constipation, diarrhea or bloody stools. Denies any previous EGD Denies recent imaging or labs Colonoscopy w/ Dr Morgan 10/20/11 DIAGNOSIS: Internal hemorrhoids otherwise normal colonoscopy. History of Present Illness I have reviewed HPI staff note, most recent labs and imaging, more than 30 minutes spent reviewing the chart, during encounter, placing orders and counseling the patient. pt with lots of constipation Miiralax makes her too much bloating no other symptoms Review of Systems PHQ Score Initial Depression Screen Score: 0 SCORE All systems reviewed, negative except as mentioned above Physical Exam Vitals & Measurements HR: 89(Peripheral) BP: 125/74 HT: 64 in HT: 162.5 cm WT: 64 kg WT: 140.8 lb BMI: 24.24 General: alert, no acute distress HEENT: atraumatic normocephalic Cardiovascular: regular rate and rhythm, normal peripheral perfusion Respiratory: Lungs CTA, respirations non labored Extremities: no deformity, no trauma Abdomen: Benign, soft, nontender nondistended Assessment/Plan 1. Screen for colon cancer (Z12.11: Encounter for screening for malignant neoplasm of colon) Ordered: Colonoscopy (Hospital Procedure) 2. Chronic constipation (K59.09: Other constipation) 3. Bloating (R14.0: Abdominal distension (gaseous)) Advised to use stool softeners, prunes and kiwi fruits, and fiber supplementation such as Metamucil Advised to get squatty potty and massage the colon Schedule colonoscopy Follow-up No qualifying data available Problem List/Past Medical History Ongoing Bloating Chronic constipation Fibromyalgia MIGRAINE Historical high cholesterol Procedure/Surgical History Colonoscopy. Medications Lexi, Oral amitriptyline 75 mg oral tablet, Oral, Once a day (at bedtime) Calcium 600+D, Oral, TID cyclobenzaprine 10 mg Tab, 10 mg= 1 tab(s), Oral, TID, PRN ibuprofen 800 mg Tab, 800 mg= 1 tab(s), Oral, TID Imitrex, Once magnesium 100 mg oral tablet Miralax 3350 17 gram packet, 17 gm, Oral, Daily omeprazole 20 mg Cap-DR, Oral, Daily Vitamin D3, Oral Allergies Biaxin Topamax Social History Tobacco Never (less than 100 in lifetime) Tobacco Use:. Never Smokeless Tobacco Use:., 04/17/2024 Family History Non-Hodgkin lymphoma: Father. Immunizations Vaccine Date Status Comments influenza virus vaccine, inactivated - Not Given Patient Refuses influenza virus vaccine, inactivated 05/29/2023 Recorded diphtheria/pertussis, acel/tetanus adult 02/21/2023 Recorded influenza virus vaccine, inactivated 06/10/2022 Recorded SARS-CoV-2 (COVID-19) mRNA BNT-162b2 vax 08/29/2021 Recorded influenza virus vaccine, inactivated 07/05/2021 Recorded SARS-CoV-2 (COVID-19) mRNA BNT-162b2 vax 12/30/2020 Recorded SARS-CoV-2 (COVID-19) mRNA BNT-162b2 vax 12/09/2020 Recorded influenza virus vaccine, inactivated 06/03/2020 Recorded zoster vaccine, inactivated 08/19/2019 Recorded zoster vaccine, inactivated 06/07/2019 Recorded influenza virus vaccine, inactivated 06/07/2019 Recorded influenza virus vaccine, inactivated 06/02/2018 Recorded influenza virus vaccine, inactivated 06/13/2017 Recorded influenza virus vaccine, inactivated 09/06/2016 Recorded Normal [facility] Comment on above: Result Comment: Elec tronically Signed By: Jeremy HOWELL, Meenu Garza.br\Date and Time Signed: 04/17/24 14:33 EDT MG MAMM SCREEN 3D WILEY CADon 01-20-2023 MG MAMM SCREEN 3D WILEY CAD Patient: GEM CARRERA Exam Date: 01/20/2023 : 1970 Gender:F Ordering : DR ORIANA BONE . Admission #: [id number] Family : Order #: [id number] CLICK HERE TO VIEW EXAM RADIOLOGY REPORT [...] lymphoma cancer at age 68. LOCATION: [facility] BREAST COMPOSITION: Heterogeneously dense,which may obscure small [...] Davison M.D. on 01/20/2023 at 14:[address] [facility] PAP ACOG PANEL 2: 30 to 65on 02-20-2022 . . Normal [facility] Comment on above: Result Comment: Perf ormed at: WB Performed By: #### [id number] #### [facility] [address] [address] [address] Tereza Garber Age Gdln ACOG Testing 30-[address] [facility] Comment on above: Performed By: #### [id number] #### [facility] [address] [place] [address] Dr. Tereza Garber DIAGNOSIS: Comment Normal [facility] Comment on above: Result Comment: NEGA TIVE FOR INTRAEPITHELIAL LESION OR MALIGNANCY. Performed at: WB Performed By: #### [id number] #### [facility] [address] [place] [address] Dr. Tereza Garber HPV Aptima Negative Normal Negative [facility] Comment on above: Result Comment: This nucleic acid amplification test detects fourteen high-risk HPV types (16,18,31,33,35,39,45,51,52,56,58,59,66,68) without differentiation. Performed at: =G Performed By: #### [id number] #### [facility] [address] [place] [address] Dr. Tereza Garber Methodology: Comment Normal [facility] Comment on above: Result Comment: This liquid based ThinPrep(R) pap test was screened with the use of an image guided system. Performed at: WB Performed By: #### [id number] #### [facility] [address] [place] [address] Dr. Tereza Garber Note: Comment Normal [facility] Comment on above: Result Comment: The Pap smear is a screening test designed to aid in the detection of premalignant and malignant conditions of the uterine cervix. It is not a diagnostic procedure and should not be used as the sole means of detecting cervical cancer. Both false-positive and false-negative reports do occur. . Performed at: WB Performed By: #### [id number] #### [facility] [address] [address] [address] Tereza Garber Performed by: Comment Normal [facility] Comment on above: Result Comment: Nataly Bird, Assembly Press Operator (ASCP) Performed at: WB Performed By: #### [id number] #### [facility] [address] [address] [address] Tereza Garber Specimen adequacy: Comment Normal [facility] Comment on above: Result Comment: Sati sfactory for evaluation. Endocervical and/or squamous metaplastic cells (endocervical component) are present. Performed at: WB Performed By: #### [id number] #### [facility] [address] [address] [address] Tereza Garber US Pelvic Complete w/Transva [...] by Myrna Sanchez on 09/09/2021 1518 Normal [facility] US Pelvic Complete w/Transva ginalon 08-26-2021 US [...] by Arden Reynoso on 08/26/2021 1617 Normal [facility] Expeller Operator Vital Signs Date Time Vital Sign Value Performing Clinician Facility 01-01-2025 12:32-0400 Diastolic blood pressure 75 mm[Hg] Sarah Pickard Work Phone: [facility] 01-01-2025 12:32-0400 Heart rate 83 /min Sarah Pickard Work Phone: [facility] 01-01-2025 12:32-0400 Respiratory rate 16 /min Sarah Pickard Work Phone: [facility] 01-01-2025 12:32-0400 SaO2% (BldA) [Mass fraction] 98 % Sarah Pickard Work Phone: [facility] 01-01-2025 12:32-0400 Systolic blood pressure 128 mm[Hg] Sarah Pickard Work Phone: [facility] 01-01-2025 09:120400 Body height 162.56 cm Sarah Pickard Work Phone: [facility] 01-01-2025 09:12-0400 Body weight 75.74 kg Sarah Pickard Work Phone: [facility] 12-22-2024 09:22-0400 Body height 162.56 cm Sarah Pickard Work Phone: [facility] 12-22-2024 09:22-0400 Body mass index (BMI) [Ratio] 30 kg/m2 Sarah Pickard Work Phone: [facility] 12-22-2024 09:22-0400 Body weight 79.37 kg Sarah Pickard Work Phone: [facility] 12-22-2024 09:22-0400 Diastolic blood pressure 78 mm[Hg] Sarah Pickard Work Phone: [facility] 12-22-2024 09:22-0400 Heart rate 92 /min Sarah Pickard Work Phone: [facility] 12-22-2024 09:22-0400 SaO2% (BldA) [Mass fraction] 97 % Sarah Pickard Work Phone: [facility] 12-22-2024 09:22-0400 Systolic blood pressure 146 mm[Hg] Sarah Pickard Work Phone: [facility] 12-12-2024 08:59-0400 Body height 162.6 cm Payton CALLAHAN Work Phone: [facility] 12-12-2024 08:59-0400 Body mass index (BMI) [Ratio] 30.38 kg/m2 Payton CALLAHAN Work Phone: [facility] 12-12-2024 08:59-0400 Body weight 80.29 kg Payton Hill PA Work Phone: [facility] 12-12-2024 08:59-0400 Diastolic blood pressure 86 mm[Hg] Payton Chaparro PA Work Phone: [facility] 12-12-2024 08:59-0400 Heart rate 84 /min Payton Chaparro PA Work Phone: [facility] 12-12-2024 08:59-0400 Respiratory rate 16 /min Payton Chaparro PA Work Phone: [facility] 12-12-2024 08:59-0400 SaO2% (BldA) [Mass fraction] 94 % Payton Chaparro PA Work Phone: [facility] 12-12-2024 08:59-0400 Systolic blood pressure 132 mm[Hg] Payton Chaparro PA Work Phone: [facility] 08-28-2024 14:46-0500 Diastolic blood pressure 74 mm[Hg] Eva Demian DO Work Phone: [facility] 08-28-2024 14:46-0500 Systolic blood pressure 122 mm[Hg] Eva Demian DO Work Phone: [facility] 08-14-2024 08:18-0500 Body height 162.6 cm Delfina Guillenr [employer] DATA SOLUTIONS ARCHITECT Work Phone: [facility] 08-14-2024 08:18-0500 Body mass index (BMI) [Ratio] 28.84 kg/m2 Delfina Joaniemor [employer] ARCHITECT Work Phone: [facility] 08-14-2024 08:18-0500 Body weight 76.2 kg Delfina Joaniemor [employer] ARCHITECT Work Phone: [facility] 08-14-2024 08:18-0500 Diastolic blood pressure 89 mm[Hg] Delfina Nairmor [employer] ARCHITECT Work Phone: [facility] 08-14-2024 08:18-0500 Heart rate 90 /min Delfina Nairmor [employer] ARCHITECT Work Phone: [facility] 08-14-2024 08:18-0500 Systolic blood pressure 147 mm[Hg] Delfina Nairmor [employer] ARCHITECT Work Phone: [facility] 07-03-2024 07:20-0500 Blood Pressure Location Meenu Sunli [facility] 07-03-2024 07:20-0500 Body temperature 97.88 [degF] Leeleed Mouchli [facility] 07-03-2024 07:20-0500 Diastolic blood pressure 78 mm[Hg] Chrissieamad Mouchli [facility] 07-03-2024 07:20-0500 Heart rate 88 /min Leeleed Joeuchli [facility] 07-03-2024 07:20-0500 Respiratory rate 35 /min Leeleed Joeuchli [facility] 07-03-2024 07:20-0500 SaO2% (BldA) [Mass fraction] 95 % Leeleed Corinneli [facility] 07-03-2024 07:20-0500 Systolic blood pressure 136 mm[Hg] Chrissieamad Mouchli [facility] 06-20-2024 08:48-0400 Body height 162.[address] [facility] 06-20-2024 08:48-0400 Body mass index (BMI) [Ratio] 27.8 kg/m2 [facility] 06-20-2024 08:48-0400 Body weight 73.[address] [facility] 06-20-2024 08:48-0400 Diastolic blood pressure 75 mm[Hg] [facility] 06-20-2024 08:48-0400 Heart rate 71 /min [facility] 06-20-2024 08:48-0400 SaO2% (BldA) [Mass fraction] 99 % [facility] 06-20-2024 08:48-0400 Systolic blood pressure 132 mm[Hg] [facility] 04-17-2024 14:14-0400 Blood Pressure Location Meenu Luna [facility] 04-17-2024 14:14-0400 Diastolic blood pressure 74 mm[Hg] Meenu Luna [facility] 04-17-2024 14:14-0400 Heart rate 89 /min Meenu Luna [facility] 04-17-2024 14:14-0400 Systolic blood pressure 125 mm[Hg] Meenu Luna [facility] Encounters Encounter Date Encounter Type Care Provider Facility Start: 03-06-2025 End: 03-06-2025 Bamboo flowsheet Zandra CALLAHAN Work Phone: [facility] Start: 03-06-2025 End: 03-06-2025 Bamboo flowsheet Zandra CALLAHAN Work Phone: [facility] Start: 01-01-2025 Non-patient / Non-visit Rebecc a Neeraj Work Phone: [facility] Work Phone: Start: 01-01-2025 End: 01-01-2025 Admission to same day surgery center Sarah Pickard Work Phone: [facility] Work Phone: Start: 01-01-2025 End: 01-01-2025 ambulatory Sarah L Neeraj Work Phone: [facility] Work Phone: Start: 12-22-2024 End: 12-22-2024 ambulatory Sarah L Neeraj Work Phone: [facility] Work Phone: Start: 12-22-2024 End: 12-22-2024 Patient encounter procedure Sarah Pickard Work Phone: [facility] Work Phone: Start: 12-12-2024 End: 12-12-2024 Bamboo flowsheet Payton CALLAHAN Work Phone: [facility] Start: 12-12-2024 End: 12-12-2024 Bamboo flowsheet Payton CALLAHAN Work Phone: [facility] Start: 12-12-2024 End: 12-12-2024 Office outpatient visit 25 minutes Payton CALLAHAN Work Phone: [facility] Comment on above: Carpal tunnel syndro me of left wrist (Primary Dx); Nonintractable headache, unspecified chronicity pattern, unspecified headache type; Carpal tunnel syndrome of right wrist; Paresthesia of skin Start: 12-12-2024 End: 12-12-2024 ambulatory PAYTON CHAPARRO Not Available Start: 11-16-2024 End: 11-16-2024 ambulatory ZANDRA GIBBONS Not Available Start: 10-30-2024 End: 11-09-2024 Pre-admission assessment Zandra Gibbons [facility] Start: 10-19-2024 Non-patient / Non-visit Madison Pickard Work Phone: [facility] Work Phone: Start: 10-17-2024 End: 10-17-2024 Bamboo flowsheet Vicky Leiva MD Work Phone: [facility] Start: 10-17-2024 End: 10-17-2024 Bamboo flowsheet Vicky Leiva MD Work Phone: [facility] Start: 10-17-2024 End: 10-17-2024 Office outpatient visit 15 minutes Vicky Leiva MD Work Phone: [facility] Comment on above: Lipoma of right lowe r extremity (Primary Dx); Melanocytic nevus of trunk; Lentigines; Capillary angioma; Lichenoid keratosis; Seborrheic keratosis Start: 10-17-2024 End: 10-17-2024 ambulatory VICKY RÍOSDavid Not Available Start: 10-16-2024 End: 10-16-2024 Patient encounter procedure Sarah Pickard Work Phone: [facility] Work Phone: Start: 10-16-2024 End: 10-16-2024 ambulatory Sarah Domingo Pickard Work Phone: [facility] Work Phone: Start: 08-28-2024 End: 08-28-2024 Clinical Support Eva Santa DO Work Phone: [facility] Comment on above: Bilateral carpal beni pedro luis syndrome (Primary Dx) Start: 08-28-2024 End: 08-28-2024 Bamboo flowsheet Eva Santa DO Work Phone: [facility] Start: 08-28-2024 End: 08-28-2024 Bamboo flowsheet Eva Santa DO Work Phone: [facility] Start: 08-14-2024 End: 08-14-2024 Bamboo flowsheet Delfina Schofield [employer] ARCHITECT [facility] [place] [address] Start: 08-14-2024 End: 08-14-2024 Bamboo flowsheet Delfina Schofield [employer] ARCHITECT [facility] Start: 08-14-2024 End: 08-14-2024 Office outpatient visit 25 minutes Delfina Schofield [employer] ARCHITECT [facility] Comment on above: Carpal tunnel syndro me of left wrist (Primary Dx); Nonintractable headache, unspecified chronicity pattern, unspecified headache type; Carpal tunnel syndrome of right wrist; Paresthesia of skin Start: 08-14-2024 End: 08-14-2024 ambulatory DELFINA SCHOFIELD Not Available Start: 07-03-2024 End: 07-03-2024 ambulatory Meenu Luna [facility] Start: 07-03-2024 End: 07-03-2024 Patient encounter procedure Meenu Luna [facility] Start: 06-20-2024 End: 06-20-2024 ambulatory [facility] Work Phone: Start: 06-20-2024 End: 06-20-2024 Patient encounter procedure [facility] Work Phone: Start: 04-17-2024 End: 04-17-2024 ambulatory Meenu Luna Facility:[facility] Start: 04-17-2024 End: 04-17-2024 Patient encounter procedure Meenu Luna [facility] Start: 03-09-2024 ambulatory [facility]enu [facility] Start: 01-31-2024 End: 01-31-2024 ambulatory DELFINA SCHOFIELD Not Available Start: 01-20-[address] ORIANA BONE . Facili ty:[facility] Start: 02-17-2022 End: 02-17-[address] ORIANA BONE . Facility: Start: 05-09-2014 End: 05-09-2014 Telephone encounter Sushil Thorpe (Richard David Work Phone: Neurology Procedures Date Procedure Procedure Detail Performing Clinician Start: 01-01-2025 Esophagogastroduodenoscopy Sarah Pickard Work Phone: Start: 08-28-2024 Injection therapeutic carpal tunnel Eva Santa DO Work Phone: Start: 02-07-2024 Mammography Delfina Schofield NP Work Phone: Start: 04-02-2023 Microscopic observation [Identifier] in Cervix by Cyto stain Delfina Schofield NP Work Phone: Colonoscopy Meenu Luna Comment on above: 2012- Dr Morgan Plan of Treatment Date Care Activity Detail Author Start: 04-02-2028 Screening for malign ant neoplasm of cervix [facility] Start: 04-24-2025 End: 04-24-2025 Patient encounter procedure 04/24/2025 8:35 AM EDT Office Visit [facility] [address] [place] [phone] Vicky Leiva MD [address] [place] [address] [facility] Start: 04-23-2025 Influenza vaccination Influenza Vacc ine (#1) [facility] Start: 02-06-2025 Screening for malign ant neoplasm of breast Mammogram [facility] Start: 02-06-2025 End: 02-06-2025 Patient encounter procedure 02/06/2025 8:20 AM EDT Office Visit [facility] [address] [place] [address] Payton Chaparro PA [address] [place] [address] [facility] Start: 01-01-2025 [facility] Start: 12-12-2024 End: 12-12-2024 Patient encounter procedure 12/12/2024 9:00 AM EDT Office Visit [facility] [address] [place] [address] Payton Chaparro PA [address] [place] [address] Arrived [facility] Comment on above: Arrived Start: 11-06-2024 End: 11-06-2024 Patient encounter procedure [facility] [address] Start: 10-17-2024 End: 10-17-2024 Patient encounter procedure 10/17/2024 8:50 AM EST Office Visit [facility] [address] [place] [phone] Vicky Leiva MD [address] [place] [address] Arrived [facility] Comment on above: Arrived Start: 09-26-2024 End: 09-26-2024 Clinical Support 09/26/2024 1:45 PM EST Clinical Support [facility] [address] [place] [address] Eva Santa, DO [address] [place] [address] [facility] Start: 08-28-2024 End: 08-28-2024 Clinical Support 08/28/2024 2:45 PM EST Clinical Support [facility] [address] [place] [address] Eva Santa, DO [address] [place] [address] Arrived [facility] Comment on above: Arrived Start: 08-14-2024 End: 08-14-2024 Patient encounter procedure 08/14/2024 8:20 AM EST [facility] [place] [address] [place] [address] Delfina Schofield, BIG DATA SOLUTIONS ARCHITECT [address] [place], [place] Arrived [facility] [address] [address] Comment on above: Arrived Start: 04-23-2024 Influenza vaccination Influenza Vacc ine (#1) [facility] Start: 04-23-2021 Influenza vaccination INFLUENZ A (Season Ended) [facility] Start: 2018 Screening for malign ant neoplasm of colon [facility] Start: 2018 SHINGRIX VACCINE (1 of 2) SHINGRIX VACCINE (1 of 2) [facility] Start: 2013 DIABETES SCREEN DIABETES SCREEN [facility] Start: 2013 LIPID SCREEN LIPID SCREEN [facility] Start: 2008 Mammography MAMMOGRAM [facility] Start: 1998 HPV TESTING HPV TESTING [facility] Start: 1989 PAP TESTING PAP TESTING [facility] Start: 1987 Urine microalbumin profile DTAP,TDAP,TD (1 - Tdap) [facility] Start: 1986 HEPATITIS C SCREENING HEPATITIS C SC HANNAH [facility] Start: 1986 HIV SCREENING HIV SCREENING [facility] Start: 1980 Adult depression screening assessment DEPRESSION SCREENING [facility] Start: 1968 Screening for malign ant neoplasm of colon [facility] Patient Education Hemorrhoids Co lilian polyps Gastritis - Discharge instructions Know your Meds [facility] Work Phone: [facility] Immunizations Immunization Date Immunization Notes Care Provider Keysha valle 06-24-2024 influenza virus vaccine, unspecified formulation Delfina Schofield NP Work Phone: [facility] 05-29-2023 influenza virus vaccine, unspecified formulation Mohamad Mouchli [facility] 02-21-2023 tetanus toxoid, reduced diphtheria toxoid, and acellular pertussis vaccine, adsorbed Mohamad Mouchli [facility] 06-10-2022 influenza virus vaccine, unspecified formulation Mohamad Mouchli [facility] 08-29-2021 SARS-CoV-2 (COVID-19 ) mRNA BNT-162b2 vax Mohamad Mouchli [facility] 07-05-2021 influenza virus vaccine, unspecified formulation Mohamad Mouchli [facility] 12-30-2020 SARS-CoV-2 (COVID-19 ) mRNA BNT-162b2 vax Mohamad Mouchli [facility] 12-09-2020 SARS-CoV-2 (COVID-19 ) mRNA BNT-162b2 vax Mohamad Mouchli [facility] 06-03-2020 influenza virus vaccine, unspecified formulation Mohamad Mouchli [facility] 08-19-2019 zoster vaccine recombinant Mohamad Mouchli [facility] 06-07-2019 influenza virus vaccine, unspecified formulation Mohamad Mouchli [facility] 06-07-2019 zoster vaccine recombinant Mohamad Mouchli [facility] 06-02-2018 influenza virus vaccine, unspecified formulation Mohamad Mouchli [facility] 06-13-2017 influenza virus vaccine, unspecified formulation Mohamad Mouchli [facility] 09-06-2016 influenza virus vaccine, unspecified formulation Mohamad Mouchli [facility] NEGATED: Highlighted row has not occurred!04-17-2024 influenza virus vaccine, unspecified formulation Mohamad Mouchli [facility] Payers Date Payer Category Payer Unknown [id number] 2024 Self-pay [id number] 2023 [facility] [id number] 2023 Unknown [id number] 2021 Managed Care O (unspecified) [employer] [id number] 2013 Unknown HOSPITAL/MEDICAL GENERIC MEDICAL GENERIC [id number] 2013-2014 Indemnity [id number] 2013 Unknown MMO ZZZMMO SUPER MED PLUS [id number] 2013-2019 PPO [id number] [id number] 1968 Unknown [id number] 2.16.840.1.048115.3.579. 2.593 1968 Unknown [id number] 2.16.840.1.678664.3.579. 2.593 1968 Unknown [id number] 2.16.840.1.993101.3.579. 2.727 1968 Unknown [id number] 2.16.840.1.188421.3.579. 2.727 1968 Unknown [id number] 2.16.840.1.184752.3.579. 2.727 1968 Unknown [id number] 2.16.840.1.209635.3.579. 2.1259 1968 Unknown [id number] 2.16.840.1.975136.3.579. 2.1259 1968 Unknown [id number] 2.16.840.1.675764.3.579. 2.9 1968 Unknown [id number] 2.16.840.1.205883.3.579. 2.1259 1968 Unknown [id number] 2.16.840.1.251421.3.579. 2.9 1968 Unknown [id number] 2.16.840.1.792028.3.579. 2.1259 1959 Private Health Insurance [id number] Unknown [facility] [id number] Unknown Regular Insurance [id number] Unknown [id number] 2.16.840.1.156826.3.579. 2.531 Unknown [id number] 2.16.840.1.317456.3.579. 2.531 Social History Date Type Detail Facility Tobacco smoking stat [facility] Unknown if ever smoked [facility] Start: 1970 [facility] Start: 01-31-2024 End: 04-17-2024 Tobacco smoking status Never smoked tobacco (finding) [facility] Tobacco smoking status Never [facility] Start: 01-28-2024 End: 12-12-2024 Sex Assigned At Female [facility] Start: 1970 Sex Assigned At Female F [facility] Start: 01-31-2024 Tobacco use and exposure Smoke less tobacco non-user [facility] Start: 01-31-2024 End: 12-15-2024 Alcoholic beverage intake Current drinker of alcohol (finding) [facility] Start: 01-31-2024 End: 12-12-2024 Alcoholic beverage intake [facility] How often to you hav e a drink containing alcohol? 2-4 times a month [facility] How many standard dr inks containing alcohol do you have on a typical day? 1 or 2 [facility] How often do you hav e 6 or more drinks on 1 occasion? Never [facility] Tobacco smoking stat [facility] Unknown if ever smoked [facility] Work Phone: Start: 10-17-2024 End: 01-01-2025 Sex Female (finding) [facility] Sexual Orientation [facility] Goals Date Patient Goal Desired Activity /State Functional Status Date Assessment Result Facility 07-03-2024 Functional Status N/A [facility] 04-17-2024 Functional Status N/A [facility] Clinical Notes 05-09-2014 to 01-01-2025 Note Date & Type Note Facility 01-01-2025 History and physi prieto note [facility] enter 01-01-2025 Procedure note [facility] enter 12-22-2024 Evaluation note Diagnosis Onset Date Resolution BMI 30.0-30.9,adult acute December 222024 8:58am Excessive daytime sleepiness acute December 22, 2024 8: 58am Fibromyalgia acute December 22 8:58am GERD without esophagitis acute December 22, 2024 8:58am Hypnagogic hallucinations acute December 22, 2024 8: 58am 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 December 22, 2024 8: 58am Nocturnal hypoxia acute December 8:58am Sleep apnea acute December 22, 2024 8:58am [facility] Work Phone: 1(473) 879-753105-01-2025 History and physical note Author Walter Hernandez [facility] Note Date/Time January 01, 2025 12:43 pm [facility] [address] [place], [place] [id number] Gastroenterology H&P Signed Patient: Gem Carrera MR#: [id number] : 1970 Acct:[id number] Age/Sex: 54 / F Adm Date: 5 Loc: Room: Type: [facility] Attending Dr: Walter Hernandez MD Copies to: MD Sarah Anaya~ Date of Service: 01/01/2025 HISTORY & PHYSICAL: Patient's history with special attention to the cardiovascular, pulmonary systems and the current problem was reviewed with the patient immediately prior to the procedure. Present medications and doses reviewed in the EMR. Allergies and pertinent laboratory tests were also reviewedat this time in the EMR. The physical examination, as below, was then performed. Indication, assessment and HPI: 54-year-old female with chronic heartburn here for EGD to assess for Castro's on colonoscopy for colon cancer screening Family history of GI malignancy? No PHYSICAL EXAMINATION General appearance: NAD Skin: No jaundice Head: NC/AT Eyes: Anicteric Neck: Supple Lungs: Normal respiratory effort, no use of accessory muscles Abdomen: nondistended Neuro: Ox3. REVIEW OF SYSTEMS Constitutional: Denies malaise, fevers Cardiovascular: Denies chest pain, palpitations Respiratory: Denies shortness of breath, wheezing Gastrointestinal: As per HPI Genitourinary: Denies dysuria, polyuria Musculoskeletal: Denies joint swelling, joint stiffness Neurological: Denies confusion, numbness, tingling Endocrine: Denies fatigue Written informed consent obtained from the patient. Risks (including but not limited to perforation, infection, bloating, bleeding, need for emergent surgeryand loss of life), benefits and alternatives explained and questions answered. The patient verbalized understanding. Based on history patient is an appropriate candidate for the procedure. Walter Hernandez M.D. Documented By: Walter Hernandez MD 01/01/25 1110 Signed By: <Electronically signed by Walter Hernandez MD> 01/01/25 1110 [facility] Work Phone: 1(823) 267-963504-22-2025 History of Present illness Narrative* LONDON Nagy - 12/12/2024 9:00 AM EDT Chief Complaint Patient presents with Carpal Tunnel Subjective CTS -last injection was 08/28/24 -reports injections work well for her -reduced pain 80% -pain located in WILEY hands -right hand is worse than left -admits some numbness and tingling -reports this is mostly at night -uses wrist splints at night MIGRAINES -on amitriptyline and imitrex -reports increase in migraines the last couple weeks -located behind the eyes -imitrex aborts within an hour -denies any light or sound sensitivity -denies any nausea or vomiting -occasional blurred vision prior to migraine -sleeping well at night -recently diagnosed with KISHOR -uses CPAP nightly -averages 7-8 hours -does not always wake feeling rested -trying to get use to the CPAP mask Past Medical History: Diagnosis Date Carpal tunnel syndrome 08/06/2009 Cervicalgia 05/04/2017 Common migraine (CMS/HCC) 10/06/2016 Cyst of left ovary complex Fibromyalgia 05/04/2017 Fibromyalgia, primary Headache 10/06/2016 High cholesterol (CMS/HCC) Migraines (CMS/HCC) Muscle spasm 05/04/2017 Radiculopathy, lumbosacral region 08/06/2009 Screening mammogram for breast cancer 01/20/2023 neg Seasonal allergies Tension headache 10/06/2016 Variants of migraine (CMS/HCC) 10/06/2016 not elsewhere classified; without mention of intractable migraine without mention of status migrainosus; without mention of refractory migraine without mention of status migrainosus Past Surgical History: Procedure Laterality Date DILATION AND CURETTAGE DILATION AND CURETTAGE OF UTERUS 07/02/2023 HYSTEROSCOPY 07/02/2023 PAP SMEAR 01/13/2021 WNL SEPTOPLASTY 01/08/2017 SMR inferior turbinates TONSILLECTOMY Family History Problem Relation Name Age of Onset Diabetes Mother Caitlyn Galvan Migraines Mother Caitlyn Galvan Stroke Mother Caitlyn Galvan Hypertension Father Cancer Father Melanoma Sister Social History Tobacco Use Smoking status: Never Smokeless tobacco: Never Substance Use Topics Alcohol use: Yes Alcohol/week: 2.0 standard drinks of alcohol Types: 2 Shots of liquor per week Allergies: Clarithromycin, Sulfa antibiotics, and Topiramate General: No fever or chills HEENT: No nasal congestion or runny nose Pulmonary: No shortness of breath or cough Cardiovascular: No chest pain or palpitations GI: No nausea or vomiting : No dysuria or hematuria Musculoskeletal: No new aches or pains or muscle weakness Infectious: no recurrent fevers or infections Dermatologic: No rashes or skin lesions Neurologic: No new headaches or dizziness Vitals: 12/12/24 0859 BP: 132/86 Pulse: 84 Resp: 16 SpO2: 94% Body mass index is 30.38 kg/m . Weight: 177 lb Neurologic exam: General: Normal body habitus, cooperative, pleasant Mental status: Awake, alert to person, place and time. Recent and remote memory are intact. Attention and concentration are normal. Fund of knowledge is appropriate for level of education. HEENT: NC/AT Cranial nerves: CN II: Visual solano full to confrontation. No loss of vision CN III, IV, : pupils equal round and reactive to light. Extraocular movements intact. No ptosis present. CN V: Facial sensation is normal. CN VII: Full and symmetric facial movement. CN VIII: Hearing is normal CN IX and X: Palate elevates symmetrically. CN XI: Shoulder shrug is normal bilaterally. CN XII: Tongue is midline without atrophy or fasciculation. Speech: Clear and fluent no aphasia or dysarthria Pronator drift: Negative bilateral upper extremity Coordination: Intact, no signs of dysmetria Good finger to nose and rapid alternating movements Sensory: Sensation is intact to light, temperature and vibratory touch throughout four extremities. Motor: LUE 5/5 RUE 5/5 LLE 5/5 RLE 5/5 Tone: Physiologic, no tremor, bradykinesia or rigidity DTR: Bilateral Biceps 2/4 Bilateral BR 2/4 Bilateral Patellar 2/4 No spasticity Gait: Normal to casual gait Romberg's Negative Assessment/Plan Diagnoses and all orders for this visit: Carpal tunnel syndrome of left wrist Nonintractable headache, unspecified chronicity pattern, unspecified headache type Carpal tunnel syndrome of right wrist Paresthesia of skin 54-year-old female with headaches made up of tension headaches that can transition into migraines .They have greatly improved and are well controlled with amitriptyline, flexeril, and imitrex. She has chronic pain in her neck with myalgias and muscle spasms. She has benefited from cervical triggerpoint injections in the past. She has flexeril prn and does need this very often. Imitrex does workwell as an abortive. She also had MigraMax compound, although through [facility] policy we can no longer prescribe this. Of note, she has tried medrol dose neo in the past due to flare in migraines, and this brought her back to her baseline. She is no longer on Ozempic. It was unclear if that was playing a role in giving her some headaches. She has had an increase in migraines within the past couple weeks, which she attributes possibly due to weather changes. . She has been on cymbalta and magnesium. She has tried zanaflex, Skelaxin and Flexeril which caused SE, But she wanted to go back to the Flexeril and is tolerating this well, she is rarely using it . Cervical trigger point injections do give her 50-60% sometimes 75% improvement when she needs triggers. This last round did as well. . She does have some CTS with numbness and tingling that is worsening. She is back to wearing her cock wrist splints after 6 months of not wearing them. This flared up a few weeks ago while on vacation, especially in the right hand. She has had carpal tunnel injections in the past and benefited and would like to reschedule these. Can consider updating EMG pending course. She does feel like her probiotics and supplements are helpful and she is still on those. . Review and summary of old records: EMG BUE 11/04/2022 did reveal moderate right and minimal left carpal tunnel sydrome. . . . Plan Start medrol dose neo to break up current migraines She may schedule carpal tunnel injections pending course She may schedule bilateral trigger point injections when needed, last round 05/11/2023, watch steroid timing due to above injections Continue Flexeril 5 mg 1 1/2 tab BID prn Continue with the neck exercises Watch the amount of weight loss on the Ozempic Continue the amitriptyline 75 mg at bedtime Imitrex 100 mg as needed migraine abortive, may repeat in 2 hours if needed. Minimize abortives to 2 days a week. 40 min or more of CV exercise at least 3 days a week and neck stretches continue with cock up wrist splints at night This was discussed with the patient, all questions were answered and they agreed with the treatmentplan. The patient is to call with any worsening of the condition or new symptoms. Consider medication adjustment for migraine prevention pending course Return to clinic: 2 months documented in this encounterSt. [facility] [id number] History of Present illness Narrative* Vicky Leiva MD - 10/17/2024 8:50 AM EST Skin Check Location: Patient requests a full body skin examination Dermatologic history: no history of skin cancer, no history of atypical moles, family history of melanoma (sister) Last visit: New patient All pertinent medical history, medications, and allergies were reviewed. General Exam: alert, oriented to person, place, and time, normal affect, well appearing Unaccompanied Scalp, Examined , exam limited by hair Right leg Examined Head, Face Examined Left leg Examined Neck Examined Right foot Examined Chest Examined Left foot Examined Back Examined Buttocks Examined Abdomen Examined Digits,nails: Examined Right arm Examined Left arm Examined Lymphatics: Not examined Hands Examined 1. Lipoma of right lower extremity Right Thigh - Posterior Soft subcutaneous nodule Educated on lipomas. Informed patient that lipomas can be surgically removed if they become symptomatic. Educated that any lesion that is rapidly enlarging or symptomatic should be re-evaluated. Patient declined removal today. 2. Melanocytic nevus of trunk Scattered benign appearing, regular brown to light brown melanocytic papules and macules with similar morphology Counseled regarding these benign growths. Rarely, a nevus can develop into malignant melanoma, so any changing nevi should be promptly re-evaluated. 3. Lentigines Scattered lake macules in sun-exposed areas. The patient was informed that lentigines are benign pigmented lesions that occur on sun-exposed andsun-damaged skin. No treatment is necessary. Recommended regular use of broad spectrum sunscreen SPF 30 or higher 4. Capillary angioma Scattered fields-red papule(s). The patient was informed that angiomas are benign growths on the the skin. No treatment is necessary. 5. Lichenoid keratosis Right Breast Reassured patient benign. 6. Seborrheic keratosis (2) Right Parotid Area, Right Zygomatic Area Stuck on verrucous, lake-brown papules and plaques. Patient was counseled regarding these benign growths. Removal is normally not necessary, but they may be removed if they are symptomatic or for cosmetic reasons. Patient elected for removal at a later date. Next Visit: Apr. ISK removal, 1 year skin check documented in this encounterSt. [facility] [id number] History of Present illness Narrative* Eva Santa DO - 08/28/2024 2:45 PM ESTAssociated Order(s): Hand / Upper Extremity Injection/Arthrocentesis: bilateral carpal tunnel Post-Procedure Diagnose(s): Bilateral carpal tunnel syndrome Images from the original note were not included. Procedure - Therapeutic injection, Carpal Tunnel Indication Carpal tunnel syndrome bilatearl Consent The procedure was explained to the patient. This included indications; possible complications, including at least bleeding, infection, and ; and ill effects from not undergoing the procedure, including at least inadequate treatment and all possible complications therefrom. Informed consent forthe procedure was obtained and witnessed. Medication, per site Depomedrol 40mg/0.5cc with 1 ml marcaine 0.25% without epi Site Prep The wrists were sterilized with 70% isopropanol. Procedure After identifying the palmaris longus tendon the needle was inserted. With care to be sure that theneedle was on in the nerve and in the space aspiration was performed to be sure that the needle wasnot in a vessel The medication was injected into the area. syringe into the region of Patient ID: Gem Carrera is a 54 y.o. female. Hand / Upper Extremity Injection/Arthrocentesis: bilateral carpal tunnel for carpal tunnel syndromeon 08/28/2024 4:09 PM Indications: pain Medications (Right): 2 mL bupivacaine 0.25 %; 80 mg methylPREDNISolone acetate 40 MG/ML Procedure, treatment alternatives, risks and benefits explained, specific risks discussed. Consent was given by the patient. Patient was prepped and draped in the usual sterile fashion. bilateral carpal tunnel(s). The patient tolerated procedure well without complications. Patient Instructions The patient was instructed to return should any bleeding or fluid be seen from the puncture site; for fever; numbness; weakness; or any other unexpected symptoms. Assessment Carpal tunnel syndrome Procedure Codes 29693 X1 -50 Ther Injection, Carp Tunnel S0020 x1 INJ Marcaine 50 ML Follow Up as previously documented in this encounterSt. [facility] Medical [id number] History of Present illness Narrative* Delfina Schofield NP - 08/14/2024 8:20 AM EST Images from the original note were not included. Chief Complaint Patient presents with Migraine Neck Pain Subjective Gem states she is doing okay besides her carpal tunnel. She admits throbbing pain in the right hand. This only occurs at night. She did not wear her wrist splints for about 6 months but is wearing them now. The pain will occasionally be in the left hand. This just started to bother her again on07/27/24. Ibuprofen does help. Migraines are stable. She does need a refill on amitriptyline. Past Medical History: Diagnosis Date Carpal tunnel syndrome 08/06/2009 Cervicalgia 05/04/2017 Common migraine (CMS/HCC) 10/06/2016 Cyst of left ovary complex Fibromyalgia 05/04/2017 Fibromyalgia, primary Headache 10/06/2016 High cholesterol (CMS/HCC) Migraines (CMS/HCC) Muscle spasm 05/04/2017 Radiculopathy, lumbosacral region 08/06/2009 Screening mammogram for breast cancer 01/20/2023 neg Seasonal allergies Tension headache 10/06/2016 Variants of migraine (CMS/HCC) 10/06/2016 not elsewhere classified; without mention of intractable migraine without mention of status migrainosus; without mention of refractory migraine without mention of status migrainosus Past Surgical History: Procedure Laterality Date DILATION AND CURETTAGE DILATION AND CURETTAGE OF UTERUS 07/02/2023 HYSTEROSCOPY 07/02/2023 PAP SMEAR 01/13/2021 WNL SEPTOPLASTY 01/08/2017 SMR inferior turbinates TONSILLECTOMY Family History Problem Relation Name Age of Onset Diabetes Mother Caitlyn Galvan Migraines Mother Caitlyn Galvan Stroke Mother Caitlyn Galvan Hypertension Father Cancer Father Social History Tobacco Use Smoking status: Never Smokeless tobacco: Never Substance Use Topics Alcohol use: Yes Alcohol/week: 2.0 standard drinks of alcohol Types: 2 Shots of liquor per week Allergies: Clarithromycin, Sulfa antibiotics, and Topiramate General: No fever or chills HEENT: No nasal congestion or runny nose Pulmonary: No shortness of breath or cough Cardiovascular: No chest pain or palpitations GI: No nausea or vomiting : No dysuria or hematuria Musculoskeletal: No new aches or pains or muscle weakness Infectious: no recurrent fevers or infections Dermatologic: No rashes or skin lesions Neurologic: No new headaches or dizziness Vitals: 08/14/24 0818 BP: 147/89 Pulse: 90 Body mass index is 28.84 kg/m . weight: 168 lb Neurologic exam: General: Normal body habitus, cooperative, pleasant Mental status: Awake, alert to person, place and time. Recent and remote memory are intact. Attention and concentration are normal. Fund of knowledge is appropriate for level of education. HEENT: NC/AT Cranial nerves: CN II: Visual oslano full to confrontation. No loss of vision CN III, IV, : pupils equal round and reactive to light. Extraocular movements intact. No ptosis present. CN V: Facial sensation is normal. CN VII: Full and symmetric facial movement. CN VIII: Hearing is normal CN IX and X: Palate elevates symmetrically. CN XI: Shoulder shrug is normal bilaterally. CN XII: Tongue is midline without atrophy or fasciculation. Speech: Clear and fluent no aphasia or dysarthria Pronator drift: Negative bilateral upper extremity Coordination: Intact, no signs of dysmetria Good finger to nose and rapid alternating movements Sensory: Sensation is intact to light, temperature and vibratory touch throughout four extremities. Motor: LUE 5/5 RUE 5/5 LLE 5/5 RLE 5/5 Tone: Physiologic, no tremor, bradykinesia or rigidity DTR: Bilateral Biceps 2/4 Bilateral BR 2/4 Bilateral Patellar 2/4 No spasticity Gait: Normal to casual gait Romberg's Negative Assessment/Plan Diagnoses and all orders for this visit: Carpal tunnel syndrome of left wrist Nonintractable headache, unspecified chronicity pattern, unspecified headache type - amitriptyline (Elavil) 75 MG tablet; Take 1 tablet (75 mg) by mouth at bedtime Carpal tunnel syndrome of right wrist Paresthesia of skin 54-year-old female with headaches made up of tension headaches that can transition into migraines .They have greatly improved and are well controlled. She has chronic pain in her neck with myalgias and muscle spasms. She has benefited from cervical trigger point injections in the past. She has flexeril prn and does need this very often. Imitrex does work well as an abortive. She also had MigraMax compound, although through [facility] policy we can no longer prescribe this. She is no longer on Ozempic. It was unclear if that was playing a role in giving her some headaches. . She has tried zanaflex, Skelaxin and Flexeril which caused SE, But she wanted to go back to the Flexeril and is tolerating this well, she is rarely using it . Cervical trigger point injections do give her 50-60% sometimes 75% improvement when she needs triggers. This last round did as well. . She does have some CTS with numbness and tingling that is worsening. She is back to wearing her cock wrist splints after 6 months of not wearing them. This flared up a few weeks ago while on vacation, especially in the right hand. She has had carpal tunnel injections in the past and benefited and would like to reschedule these. I did offer to update EMG and she declines at this time. She does feel like her probiotics and supplements are helpful and she is still on those. . Review and summary of old records: EMG BUE 11/04/2022 did reveal moderate right and minimal left carpal tunnel sydrome. . . . Plan Schedule bilateral carpal tunnel injections, last round 12/10/2022 She may schedule bilateral trigger point injections when needed, last round 05/11/2023, watch steroid timing due to above injections Continue Flexeril 5 mg 1 1/2 tab BID prn Continue with the neck exercises Watch the amount of weight loss on the Ozempic Continue the amitriptyline 75 mg at bedtime Imitrex 100 mg as needed migraine abortive, may repeat in 2 hours if needed minimize abortives to 2 days a week. 40 min or more of CV exercise at least 3 days a week and neck stretches continue with cock up wrist splints at night This was discussed with the patient, all questions were answered and they agreed with the treatmentplan. The patient is to call with any worsening of the condition or new symptoms. Return to clinic: 6-8 weeks after carpal tunnel injections documented in [facility] encounterSt[facility] [id number] Evaluation + Plan note Extracted from: Title:ANES Pre-operative Note 2022 Author:Alfonso Winston Date:07/03/24 Plan [place] [employer] of Anesthesiologists (ASA) physical status classification: Class II. Anesthetic Preoperative Plan: Anesthesia General. [facility] [id number] NoteProgress Note-Physician Patient: GEM CARRERA Age: 54 years Sex: Female : 1970 Associated Diagnoses: None Author: Alfonso Villatoro MD Preoperative Information Anesthesia Preop Info: Time patient last ate or drank 07/03/2024 00:00:00. Anesthesia history: Patient history: None. Family history+: None. Informed consent: Signed by patient. Re-evaluation prior to induction: Initial evaluation reviewed: No significant change. Review of Systems Eye Ear/Nose/Mouth/Throat Respiratory: No shortness of breath, No cough. Cardiovascular: Negative. Gastrointestinal: No heartburn. Musculoskeletal Neurologic Health Status Allergies: Allergic Reactions (Selected) Severity Not Documented Biaxin- No reactions were documented. Topamax- No reactions were documented., Allergies (2) Active Severity Reaction Biaxin None Documented Topamax None Documented Current medications: (Selected) Inpatient Medications Ordered Lactated Ringers IV Anastasia 1000 mL 1,000 mL: 1,000 mL, IV, 100 mL/hr, Routine, Start date 07/03/24 8:23:00 EST, 10 hour(s), Total volume (mL): 1,000, 64 kg, 1.7, m2 Sodium Chloride 0.9% IV Anastasia 1000 mL 1,000 mL: 1,000 mL, IV, 20 mL/hr, Routine, Start date 07/03/24 6:38:00 EST, 50 hour(s), Total volume (mL): 1,000 Prescriptions Prescribed Miralax 3350 17 gram packet: 17 gm, Oral, Daily, 2 capfuls daily for the next 3 days and then 1 capful daily for 1 week., # 527 gm, Refills(s) 0, Pharmacy: [id number], 162, cm, 08/04/22 9:39:00 EST, Height/Length Dosing, 80, kg, 08/04/22 9:39:00 EST, Weight Dosing Documented Medications Documented Lexi: Oral, Refills(s) 0 Calcium 600+D: Oral, TID, Refill(s) 0, Prophylaxis Imitrex: Once, Refills(s) 0, Migraine headache Vitamin D3: Oral, Refills(s) 0, Prophylaxis amitriptyline 75 mg oral tablet: mg tab(s), Oral, Once a day (at bedtime), Refills(s) 0, Depression cyclobenzaprine 10 mg Tab: 10 mg = 1 tab(s), Oral, TID, PRN for spasm, # 30 tab(s), Refills(s) 0 ibuprofen 800 mg Tab: 800 mg = 1 tab(s), Oral, TID, Refills(s) 0, Headache magnesium 100 mg oral tablet: Refills(s) 0, Prophylaxis omeprazole 20 mg Cap-DR: mg cap(s), Oral, Daily, OTC, Refills(s) 0, Control of stomach acid, Home Medications (10) Active Lexi , Oral amitriptyline 75 mg oral tablet , Oral, Once a day (at bedtime) Calcium 600+D , Oral, TID cyclobenzaprine 10 mg Tab 10 mg = 1 tab(s), PRN, Oral, TID ibuprofen 800 mg Tab 800 mg = 1 tab(s), Oral, TID Imitrex , Once magnesium 100 mg oral tablet Miralax 3350 17 gram packet 17 gm, Oral, Daily omeprazole 20 mg Cap-DR , Oral, Daily Vitamin D3 , Oral , Medications (2) Active Scheduled: (0) Continuous: (2) Lactated Ringers 1,000 mL 1,000 mL, IV, 100 mL/hr Sodium Chloride 0.9% 1,000 mL 1,000 mL, IV, 20 mL/hr PRN: (0) Problem list: All Problems Bloating / SNOMED CT 360613457 / Confirmed Chronic constipation / SNOMED CT 538261944 / Confirmed Fibromyalgia / ICD-9-CM 729.1 / Confirmed MIGRAINE / ICD-9-CM 346 / Confirmed Resolved: high cholesterol / SNOMED CT 69584989, Active Problems (4) Bloating Chronic constipation Fibromyalgia MIGRAINE Histories Past Medical History: Active Fibromyalgia (729.1) MIGRAINE (346) Resolved high cholesterol (94547442): Resolved. Family History: Non-Hodgkin lymphoma Father Procedure history: Colonoscopy (333586159). Comments: 04/17/2024 14:15 BOS[facility]AN - Soraya Ortiz- Dr Morgan Social History Social & Psychosocial Habits Tobacco 07/03/2024 Tobacco Use: Never (less than 100 in l Smokeless tobacco use: Never . Physical Examination Vital Signs 07/03/2024 7:20 EST Temperature Temporal Artery 36.6 DegC Heart Rate Monitored 88 bpm Respiratory Rate Monitored 35 br/min Systolic Blood Pressure 136 mmHg Diastolic Blood Pressure 78 mmHg Blood Pressure Location Left arm SpO2 95 % Vital Signs (last 24 hrs) Last Charted Temp Temporal 36.6 DegC (JUL 03:) Heart Rate Monitored 88 bpm (JUL 03) Resp Rate 35 br/min (JUL 03) SBP 136 mmHg (JUL 03) DBP 78 mmHg (JUL 03:) Weight 64 kg (JUL 03) BMI 24.24 (JUL 03) Measurements from flowsheet : Measurements 07/03/2024 7:35 EST Height/Length Measured 162.5 cm Height/Length Dosing 162.5 cm Weight Dosing 64.0 kg BSA Measured 1.7 m2 Body Mass Index Measured 24.24 kg/m2 Weight Measured 64 kg Airway: Mallampati classification: II (soft palate, fauces, uvula visible). Respiratory: Lungs are clear to auscultation, Respirations are non-labored, adequate air exchange. Cardiovascular: Regular rhythm, No murmur. Review / Management Results review: No qualifying data available . Plan [place] Society of Anesthesiologists (ASA) physical status classification: Class II. Anesthetic Preoperative Plan: Anesthesia General.[facility] Comment on above:Result Comment: Electronically Signed By: Irving HOWELL, Alfonso Cheek\.br\Date and Time Signed: 07/03/24 08:24 [id number] Miscellaneous Notes* Telephone Encounter - Ruthie Ann - 05/09/2014 2:18 PM EDT Patient called and is wondering if you still have her records she brought into her visit. If you dolet us know and we will mail them back to her. Ruthie Patel Psr documented in this encounterSum[facility] CenterEvaluation + Plan note Future Appointments Appointment Date:07/03/2024 08:15:00 AM Scheduled Provider: Location:[facility] Appointment Type:Surgery FT [facility] Evaluation note* Diagnosis Onset Date Resolution Status BMI 27.0-27.9,adult acute Excessive daytime sleepiness acute Fibromyalgia acute GERD without esophagitis acu te Hypnagogic hallucinations ac barry 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 Sleep apnea acute [facility] Work Phone: Evaluation note* Diagnosis Carpal tunnel syndrome of left wrist- Primary Nonintractable headache, unspecified chronicity pattern, unspecified headache type Carpal tunnel syndrome of right wrist Paresthesia of skin documented in this encounter [facility] HealthcareEvaluation note* Diagnosis Bilateral carpal tunnel syndrome- Primary Carpal tunnel syndrome documented in this encounter [facility] HealthcareEvaluation noteNo assessment information availableLouis [facility] Work Phone: Evaluation note* Diagnosis Lipoma of right lower extremity- Primary Melanocytic nevus of trunk Benign neoplasm of skin of trunk, except scrotum Lentigines Capillary angioma Nevus, non-neoplastic Lichenoid keratosis Seborrheic keratosis documented in this encounter [facility] HealthcareEvaluation note* Diagnosis Carpal tunnel syndrome of left wrist- Primary Nonintractable headache, unspecified chronicity pattern, unspecified headache type Carpal tunnel syndrome of right wrist Paresthesia of skin documented in this [facility] Healthcare[facility]* Diagnosis Onset Date Resolution Status Admit Date BMI 30.0-30.9,adult acute December 222024 8:58am Excessive daytime sleepiness acute December 22, 2024 8:58am Fibromyalgia acute December 22 8:58am GERD without esophagitis acute December 22, 2024 8:58am Hypnagogic hallucinations acute December 22, 2024 8:58am 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 December 22, 2024 8:58am Nocturnal hypoxia acute December 8:58am Sleep apnea acute December 22, 2024 8:58am [facility] Work Phone: Hospital course Narrative No data available for this section [facility] Discharge instructions No data available for this section [facility] Hospital Discharge instructions Additional Instructions DISCHARGE INSTRUCTIONS FOR UPPER ENDOSCOPY WHAT TO EXPECT: - You may feel full, gassy or cramping after your procedure. In some cases, this may be from a few hours to a day. Walking may help relieve the discomfort. - Your throat may feel sore today from the scope that the doctor passed through your throat to visualize your stomach. Take a throat lozenge or suck on ice to ease the discomfort. - You may notice some streaks of blood in your sputum if the doctor has taken a biopsy. - You should begin to recover from anesthesia within 1 hour of the procedure, however may feel groggy for the next 24 hours. DO's AND DON'Ts: - Call your doctor right away if you have a hard abdomen, severe pain, vomiting or if you cough up large amounts of blood. - Call your doctor if you develop any rashes, hives or difficulty breathing. - If you take 81 mg aspirin for your heart it is safe to resume this medication. - If you take other blood thinner medications your doctor will instruct you when these can safely be resumed. - Do NOT drive for 24 hours. - Do NOT operate machinery such as power tools, Flare [employer] mowers, [employer] Match blowers, sewing machines, etc. for 24 hours. - Avoid alcoholic beverages and drugs for allergies, nerves, or sleep. - Do NOT stay alone. Do NOT leave your child unattended. - Do NOT make important personal or business decisions or sign any legal documents. - Eat solid foods and drink liquids in smaller amounts than usual until normal appetite returns. If you should experience an upset stomach, liquids high in sugar content (soda, Oleg-Aid, non-acid juices) are recommended. - Do NOT smoke. - Do take it easy today. You need not stay in bed, but avoid strenuous activities such as jogging or working out. DISCHARGE INSTRUCTIONS FOR COLONOSCOPY WHAT TO EXPECT: - You may feel full, gassy or cramping after your procedure. In some cases, this may be from a few hours to a day. Walking may help relieve the discomfort. - If you have polyp(s) removed you may note some minor bloody discharge after your first bowel movements. - You should begin to recover from anesthesia within 1 hour of the procedure, however may feel groggy for the next 24 hours. DO's AND DON'Ts: - Call your doctor right away if you have a hard abdomen, sever pain, are passing lots of bright red blood or clots. - Call your doctor if you develop any rashes, hives or difficulty breathing. - Let your doctor know if you have not had a bowel movement by 3 days after your procedure. - If you take 81 mg aspirin for your heart it is safe to resume this medication. - If you take other blood thinner medications your doctor will instruct you when these can safely be resumed. - Do NOT drive for 24 hours. - Do NOT operate machinery such as power tools, lawn mowers, snow blowers, sewing machines, etc. for 24 hours. - Avoid alcoholic beverages and drugs for allergies, nerves, or sleep. - Do NOT stay alone. Do NOT leave your child unattended. - Do NOT make important personal or business decisions or sign any legal documents. - Eat solid foods and drink liquids in smaller amounts than usual until normal appetite returns. If you should experience an upset stomach, liquids high in sugar content (soda, Oleg-Aid, non-acid juices) are recommended. - You can resume normal activities tomorrow. FOLLOW UP & RECOMMENDATIONS: - Continue omeprazole -Notify the doctor if you have any problems. -Repeat colonoscopy based on polyp pathology - Office number [phone]. [facility] Work Phone: Progress note No data available for this section [facility] Summary Purpose Family History Relationship Condition Age at Onset Recorded Date/T karina mother Hypertension Unknown Cerebrovascular accident (CVA) Unknown father Non-Hodgkin lymphoma Unknown brother Diabetes mellitus Unknown Advance Directives Advance Directive Response Recorded Date/ Time Advance Directives No March 09 10:43am Advance Directive Response Recorded Date/ Time Advance Directives No March 09 9:43am Chief Complaint and Reason for Visit Chief Complaint g47.30 Reason for Visit BMI 27.0-27.9,adult Excessive daytime sleepiness Fibromyalgia GERD without esophagitis 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 Sleep apnea Chief Complaint Admit Date Unspecified sleep apnea October 16 6:31pm Chief Complaint Admit Date Unspecified sleep apnea October 16 6:31pm APNEA October 19, 2024 6:46pm KISHOR/ December 22, 2024 8:58am Reason for Visit Admit Date BMI 30.0-30.9,adult December 22, 2024 8:58am Excessive daytime sleepiness December 22 8:58am Fibromyalgia December 22, 2024 8:58am GERD without esophagitis December 22, 2024 8 :58am Hypnagogic hallucinations December 22, 2024 8:58am Narcolepsy without cataplexy December 22 8:58am Nocturnal hypoxia December 22, 2024 8:58am Sleep apnea December 22, 2024 8:58am Chief Complaint Admit Date Unspecified sleep apnea October 16 6:31pm APNEA October 19, 2024 6:46pm KISHOR/ December 22, 2024 8:58am GERD, Screening January 01, 2025 8:56a m GERD, Screening January 01, 2025 11:10 am Additional Source Comments Source Comments (unrecognize d section and content) In the event this informatio n is protected by the Federal Confidentiality of Alcohol and Drug Abuse Patient Records regulations: The Federal rules restrict any use of the information to criminally investigate or prosecute any alcohol or drug abuse patient.[facility] INFORMATION SOURCE (unrecogn ized section and content) DATE CREATED AUTHOR 09/10/2021 [facility] dical Specialist DATE CREATED AUTHOR AUTHOR'S ORGANIZ ATION 01/29/2023 [facility] DATE CREATED AUTHOR AUTHOR'S ORGANIZ ATION 07/09/[address] [facility] DATE CREATED AUTHOR AUTHOR'S ORGANIZ ATION 12/12/2024 [facility] dical Specialists EPIC DATE CREATED AUTHOR AUTHOR'S ORGANIZ ATION 01/10/2025 [facility] Patient Care team informatio n (unrecognized section and content) Team Status: Active Member Role Status Dates Sarah Pickard Primary Care Provider Active Team Status: Inactive Member Role Status Dates Sarah Pickard Primary Care Provider Active Star t: June 20, 2024 End: June 20, 2024 Shivam Moore MD Attending Provider Active S tart: June 20, 2024 End: June 20, 2024 Grey Tender Relationship Specialty Start Date End Date Sarah Pickard NP [address] [place] [phone] Referring Physician Family Medicine 01/31/24 Eva Santa DO [address] [place] [address] Referring Physician Neurology 08/14/24 Grey Tender Relationship Specialty Start Date End Date Sarah Pickard NP [address] [facility] [place] [phone] Referring Physician Family Medicine 01/31/24 Eva Santa DO [address] [place] [address] Referring Physician Neurology 08/14/24 Grey Tender Relationship Specialty Start Date End Date Sarah Pickard NP [address] [facility] [place] [phone] Referring Physician Family Medicine 01/31/24 Eva Santa DO [address] [place] [address] Referring Physician Neurology 08/14/24 Grey Tender Relationship Specialty Start Date End Date Sarah Pickard NP [address] [place] [place] [phone] Referring Physician Family Medicine 01/31/24 Eva Santa DO [address] [place] [address] Referring Physician Neurology 08/14/24 Team Status: Inactive Member Role Status Dates Sarah Pickard Primary Care Provider Active Star t: October 16, 2024 End: October 16, 2024 Shivam Moore MD Attending Provider Active S tart: October 16, 2024 End: October 16, 2024 Grey Tender Relationship Specialty Start Date End Date Sarah Pickard NP [address] [place] [id number] Referring Physician Family Medicine 01/31/24 Eva Santa DO [address] [place] [address] Referring Physician Neurology 08/14/24 Grey Tender Relationship Specialty Start Date End Date Sarah Pickard NP [address] [place] [id number] Referring Physician Family Medicine 01/31/24 Eva Santa DO [address] [place] [address] Referring Physician Neurology 08/14/24 Team Status: Active Member Role Status Dates Sarah Pickard Primary Care Provider Active Star t: October 19, 2024 Shivam Moore MD Attending Provider, Other Provider Active Start: October 19, 2024 Team Status: Inactive Member Role Status Dates Sarah Pickard Primary Care Provider Active Star t: December 22, 2024 End: December 22, 2024 Mahsa Will NP Attending Provider Active Start: December 22, 2024 End: December 22, 2024 Team Status: Inactive Member Role Status Dates Sarah Pickard Primary Care Provider Active Star t: January 01, 2025 End: January 01, 2025 Walter Hernandez MD Attending Provider Active Start: January 01, 2025 End: January 01, 2025 Team Status: Active Member Role Status Dates Sarah Pickard Primary Care Provider Active Star t: January 01, 2025 Walter Hernandez MD Attending Provider, Other Provider Act nina Start: January 01, 2025 Grey Tender Relationship Specialty Start Date End Date Sarah Pickard NP [address] [facility] [place] [address] Referring Physician Family Medicine 01/31/24 Eva Santa DO [address] [place] [address] Referring Physician Neurology 08/14/24 Goals (unrecognized section and content) Goals may be documented in a n alternate section Reason for Visit (unrecogniz ed section and content) Reason Comments Migraine Neck Pain Reason Comments Skin Check Reason Comments Carpal Tunnel FOR RECORDS PERTAINING TO PATIENTS WHO ARE [...] BE BASED ON THE PRIMARY CLINICAL RECORDS. [facility] [employer] [facility]. provides no warranty or guarantee of the accuracy or completeness of information in this document.
[2025-03-09 17:09] LABS: Age Gdln ACOG Testing Note (.); IGP, Aptima HPV, rfx 16/18,45 Note (.)
== END 2025-03-06 19:11 | disposition home or self-care (01) ==
LOC: LAB 19:10
PROVIDERS: Visit Provider Physician Assistant
DX: Z01.419 Encounter for gynecological examination (general) (routine) without abnormal findings (principal)
CPT/HCPCS: 88175

== ENCOUNTER 2025-03-14 06:59 | Outpatient (OUT) | payer BC, SELFPAY ==
--- NOTE | 2025-03-14 07:02 | MM_ITS ---
Patient Name: LONNIE CARRERA MR#: [id number] : 1970 Exam Date: 03/14/2025 Ordering Doctor: DR ORIANA BONE . RADIOLOGY REPORT PROCEDURE: MM TOMOSYNTHESIS SCREENING BI COMPARISON: MM TOMOSYNTHESIS SCREENING BI, 02/07/2024. MG MAMM SCREEN 3D WILEY CAD, 01/20/2023. MG MAMM SCREEN 3D WILEY CAD, 01/06/2022. MG MAMM WILEY SCRN W CAD DIG, 05/09/2013. INDICATIONS: Screening for malignant neoplasm Calculator Name NCI Breast Cancer Risk Assessment Tool 5 Year Breast Cancer Risk 0.80% Lifetime Breast Cancer Risk 5.30% Personal Breast Cancer No Personal Ovarian Cancer No Treatments None Family Cancers Father with lymphoma cancer at age 70. LOCATION: [facility] BREAST COMPOSITION: There are scattered areas of fibroglandular density. FINDINGS: DIAGNOSTIC CATEGORY 1--NEGATIVE. RIGHT BREAST: No significant suspicious finding. LEFT BREAST: No significant suspicious finding. RECOMMENDATIONS: ROUTINE MAMMOGRAM AND CLINICAL EVALUATION IN 12 MONTHS. PLEASE NOTE: A NORMAL MAMMOGRAM DOES NOT EXCLUDE THE POSSIBILITY OF BREAST CANCER. A CLINICALLY SUSPICIOUS PALPABLE LUMP SHOULD BE BIOPSIED. Dictated by: Huseyin Martinez DO on 03/15/2025 at 16:15 Approved by: Huseyin Martinez DO on 03/15/2025 at 16:16
--- OUTSIDE RECORDS SUMMARY | 2025-03-14 07:02 | XMS_ITS | CCD ---
Author Organization [facility] Care Team Providers Care Hospital Cleaner Name Role Phone Alfonso Pinto Primary Care Provider [phone] SMITHA ., DR GASTELUM Attending Unavailable SMITHA ., DR GASTELUM Consulting Unavailable SMITHA ., DR GASTELUM Admitting Unavailable SMITHA ., DR GASTELUM Admitting [facility]available [facility] CAMPBELL Primary Care Unavailable SMITHA ., DR GASTELUM Attending Unavailable SMITHA ., DR GASTELUM Consulting Unavailable Sarah Pickard Primary Care Physician Meenu Luna Admitting Unavailable MoLeelee jcd Gloria Attending Unavailable MoChrissie jcamad AJose Referring Unavailable Meenu Luna AJose Attending Unavailable Sarah Pickard Referring Unavailable Neeraj PAINT BRUSH MAKER, Sarah Unavailable Eva Santa DO Unavailable Sarah Pickard Primary Care Provider [phone] Shivam Moore MD Attending Provider [phone] Zandra Gibbons Primary Care Physician [phone] Sarah Pickard Primary Care Provider Shivam Moore MD Attending Provider Walter Hernandez MD Attending Provider [phone] Sarah Pickard Primary Care Unavailable Walter Hernandez Attending Unavailable Walter Hernandez Admitting Unavailable Shivam Moore Attending Unavailable Shivam Moore Admitting Unavailable Sarah Pickard Primary Care Unavailable Sarah Pickard Primary Care Provider [phone] Mahsa Will NP Attending Provider [phone] Mary HOWELL, Imcasimiro Other Provider Zandra Hernandez CMA Attending Provider Unavailabl Eva Velasco DO Attending Provider VICKY LEIVA Attending Unavailable ZANDRA GIBBONS Referring Unavailable DELFINA SCHOFIELD Attending Unavailable EVA SANTA Attending Unavailable PAYTON CHAPARRO Attending Unavailable ZANDRA VAUGHN Attending Unavailable Allergies Allergy Classification Reported Allergen(s) Allergy Type Date of Onset Reaction(s) Facility Macrolides (antibiotic) (1 source) Clarithromycin Drug Allergy 12-02-19 14 Intolerance [facility] Sulfonamides (antibiotic) (1 source) Sulfonamides (Antibiotic) Drug Allergy 12-02-19 14 Other: See Comments [facility] (2 sources) Clarithromycin; Translations: [Biaxin] Drug Allergy [facility] Repository (1 source) Sulfonamides (Antibiotic) Drug allergy (disorder) 06-27-[address] [facility] Repository (6 sources) Clarithromycin; Translations: [clarithromycin] Drug Allergy 12-21-19 25 Unknown Reaction [facility] (4 sources) topiramate; Translations: [topiramate] Drug Allergy [facility] (2 sources) Sulfonamides (Antibiotic); Translations: [sulfa drugs] Propensity to adverse reactions (disorder) [facility] Repository (15 sources) Clarithromycin Allergy to substance 12-02-19 14 Unknown, Hives [facility] Healthcare Work Phone: (15 sources) Sulfonamides (Antibiotic) Drug Allergy 12-02-19 14 GI intolerance, Unknown, Hives [facility] Healthcare (15 sources) Topiramate Allergy to substance 06-08-20 23 Other [facility] Healthcare (4 sources) Sulfonamides (Antibiotic); Translations: [Sulfa (Sulfonamide Antibiotics)] Allergy to substance 12-21-19 25 Unknown Reaction [facility] (1 source) Clarithromycin Drug Allergy 01-02-20 25 [facility] Repository Medications Current Medications Medication Drug Class(es) Dates Sig (Normalized) Sig (Original) amitriptyline hydrochloride 75 mg oral tablet (20 sources) Tricyclic Antidepressant Start: 01-31-2024 End: 03-08-2025 take 1 tablet by mouth at bedtime [...] Status: Ordered cholecalciferol 0.025 mg oral capsule (16 sources) Vitamin D take 1 capsule by [...] daily. cyclobenzaprine hydrochloride 10 mg oral tablet (19 sources) Muscle Relaxant Start: 04-17-20 take 1 tablet by mouth three times [...] as needed. famotidine 10 mg oral tablet (5 sources) Histamine-2 Receptor Antagonist Start: 06-20-2024 take 1 tablet by mouth once daily at bedtime fexofenadine hydrochloride 180 mg oral tablet (20 sources) Histamine-1 Receptor Antagonist Start: 12-20-2024 take 1 tablet by mouth once daily Start: 04-17-2024 Lexi Oral, Refills(s) 0 Start [...] 10 mg by mouth once daily. Magnesium (19 sources) Start: 10-20-2011 magnesium 100 mg oral [...] omeprazole 20 mg delayed release oral capsule (20 sources) Proton Pump Inhibitor Start: 04-17-2024 take 1 capsule by mouth once daily take 1 capsule by mouth before m ealtime omeprazole (PriLOSEC) [address] capsule Take 40 mg by mouth in the morning. Take before meals. Do not crush or chew. . Active polyethylene glycol 3350 73817 mg powder for oral solution (6 sources) [...] week., # 527 gm, Refills(s) 0, Pharmacy: [id number], 162, cm, 08/04/22 9:39:00 EST, Height/Length Dosing, 80, kg, 08/04/22 9:39:00 EST, Weight Dosing Start Date: 08/04/22 Status: Ordered Quantity: 527.0 Unit: g Repeat number: 1 prasterone 10 mg oral capsule (15 sources) Prasterone, DHEA , 10 MG capsule Orally Active 0.25 mg, 0.5 mg dose 1.5 ml semaglutide 1.34 mg/ml pen injector (3 sources) End: 08-14-20 inject 0.25 mg by subcutaneous injection every week semaglutide (Ozempic, 0.25 or 0.5 MG/DOSE,) 2 MG/1.5ML solution pen-injector Inject 0.25 mg under the skin once a week. 08/14/2024 Discontinued (Therapy completed) SUMAtriptan 100 mg oral tablet (19 sources) Serotonin-1b and Serotonin-1d Receptor Agonist Start: 03-08-20 take 1 tablet by mouth every hour Sumatriptan Succinate (Imitrex) 100 mg tablet Active 0 PO .COMPLEX March 08, 2025 12:00am take 1 tab at onset of headache; if no relief, may repeat 1 tab after at least 2 hrs; max = 2 tabs/24 hrs 2 days a week orally; Complies with drug therapy Start: 04-17-2024 Imitrex Once, Refills(s) 0, Migraine [...] acetonide 0.055 mg/actuat metered dose nasal spray (15 sources) Corticosteroid take 2 spray(s) by inhalation once daily triamcinolone (Nasacort Allergy 24HR) 55 MCG/ACT nasal inhaler [place] 2 sprays every day by intranasal route. Active vitamin b12 0.1 mg oral lozenge (15 sources) Vitamin B12 Cyanocobalamin (Vitamin B 12) [...] mL, Once PRN Procedure, [facility] [place] on Wed08/28/24 at 1609, For 1 dose Calcium Carbonate (1 source) CALCIUM CARBONAT E (CALCIUM 600 ORAL) Take by mouth once daily. 0 Active Comment on above: Take by mouth once d aily. multivitamin tablet (1 source) multivitamin tab let Take 1 tablet by mouth once daily. Woman's One A Day once daily 0 Active Comment on above: Take 1 tablet by vania once daily. Woman's One A Day once daily [place]-3 Fatty Acids-Vitamin E (FISH OIL) 1,000 mg cap (1 source) take 1 capsule by mouth twice daily [place]-3 Fatty Acids-Vitamin E (FISH OIL) 1,000 mg cap Take 1 capsule by mouth twice daily. 0 Active Comment on above: Take 1 capsule by mo [facility] twice daily. oseltamivir 75 mg oral capsule (3 sources) Neuraminidase Inhibitor Start: 11-07-19 End: 12-21-19 take 1 capsule by mouth once daily Oseltamivir (Tamiflu) 75 mg capsule Discontinued 75 MG PO Daily 7 November 06, 2024 12:00am December 20, 2024 12:47pm polyethylene glycol 3350 827081 mg / potassium chloride 2970 mg / sodium bicarbonate 6740 mg / sodium chloride 5860 mg / sodium sulfate 85293 mg powder for oral solution (2 sources) Osmotic Laxative Start: 12-27-19 End: 01-02-20 take [...] two once daily Sod Picosulf-Mag Ox-Citric Ac (6 sources) Start: 12-23-19 End: 12-27-19 Sod Picosulf-Mag [...] solution Active 175 ML PO Daily 350 December 22, 2024 12:00am take first dose at 3:00 PM followed by four 8oz glasses of liquid take second dose at 9:00 PM followed by 3 8oz glasses of liquid, please dispense 2 kits for 2 day bowel prep Start: 11-17-2024 End: 12-20-2024 Sod Picosulf-Mag Ox-Citric A c (Clenpiq) 10 mg-3.5 gram- 12 gram/175 mL solution Discontinued 175 ML PO .COMPLEX 350 November 17, 2024 12:00am December 20, 2024 [...] (3 sources) Hypercholesterolemia 02-08-2014 Chronic Esophageal disorders (9 sources) Gastroesophageal reflux disease without esophagitis; Translations: [Gastro-esophageal reflux disease without esophagitis] 06-20-2024 Chronic Headache; including migraine (20 sources) Migraine; Translations: [Migraine variants] Onset: 10-06-19 17 11-03-2013 Chronic Miscellaneous mental health disorders (15 sources) Primary insomnia; Translations: [Primary insomnia] Onset: [...] constipation 04-17-2024 Episodic Other nervous system disorders (6 sources) Narcolepsy without cataplexy ; Translations: [Narcolepsy without cataplexy] 06-20-2024 Chronic Other nervous system disorders (3 sources) Narcolepsy without cataplexy; Translations: [Narcolepsy, without cataplexy] 06-20-2024 Chronic Other nervous system disorders (16 sources) Carpal tunnel syndrome; Translations: [Carpal tunnel syndrome, unspecified upper limb] Onset: 08-06-20 09 01-28-2024 Chronic Other nervous system disorders (19 sources) Carpal tunnel syndrome of left wrist; Translations: [Carpal tunnel syndrome, left upper limb] Onset: 01-28-20 24 01-28-2024 Chronic Other nervous system disorders (19 sources) Carpal tunnel syndrome of right wrist; Translations: [Carpal tunnel syndrome, right upper limb] Onset: 01-28-20 24 01-28-2024 Chronic Other nervous system disorders (2 sources) Bilateral carpal tunnel syndrome; Translations: [Carpal tunnel syndrome, bilateral upper limbs] 08-28-2024 Chronic Other nutritional; endocrine; and metabolic disorders (4 sources) Body mass index 30+ - obesity; Translations: [Body mass index (BMI) 30.0-30.9, adult] 12-22-2024 Chronic Other nutritional; endocrine; and metabolic disorders (2 sources) Body mass index (BMI) 30.0-30.9, adult; Translations: [Body Mass Index 30.0-30.9, adult] 12-22-2024 Chronic Other nutritional; endocrine; and metabolic disorders (5 sources) Overweight in adulthood with body mass index of 25 or more but less than 30; Translations: [Body mass index (BMI) 27.0-27.9, adult] 06-20-2024 Episodic Other nutritional; endocrine; and metabolic disorders (1 source) Body mass index (BMI) 27.0-27.9, adult; Translations: [Body Mass Index 27.0-27.9, adult] 06-20-2024 Episodic Other screening for suspected conditions (not mental disorders or infectious disease) (8 sources) Encounter for screening for malignant neoplasm of cervix; Translations: [Screening for malignant neoplasm of colon done] Onset: 02-18-20 Episodic Other skin disorders (2 sources) Lentiginosis; Translations: [Other melanin hyperpigmentation] 10-17-2024 Episodic Other skin disorders (2 sources) Lichenoid actinic keratosis; Translations: [Inflamed seborrheic keratosis] 10-17-2024 Episodic Other skin disorders (2 sources) Seborrheic keratosis; Translations: [Other seborrheic keratosis] 10-17-2024 Episodic Residual codes; unclassified (6 sources) Sleep apnea; Translations: [Sleep apnea, unspecified] 06-20-2024 Chronic Residual codes; unclassified (6 sources) Daytime somnolence; Translations: [Other hypersomnia] 06-20-2024 Chronic Residual codes; unclassified (3 sources) Other hypersomnia; Translations: [Hypersomnia, unspecified] 06-20-2024 Chronic Residual codes; unclassified (4 sources) Sleep apnea, unspecified; Translations: [Unspecified sleep apnea] Onset: 10-16-1906-20-2024 Chronic Residual codes; unclassified (4 sources) Hypoxia; Translations: [Idiopathic sleep related nonobstructive alveolar hypoventilation] 12-22-2024 Chronic Residual codes; unclassified (2 sources) Idiopathic sleep related nonobstructive alveolar hypoventilation; Translations: [Idiopathic sleep related non-obstructive alveolar hypoventilation] 12-22-2024 Chronic Residual codes; unclassified (6 sources) Hypnagogic hallucinations; Translations: [Other hallucinations] 06-20-2024 Episodic Residual codes; unclassified (3 sources) Other hallucinations; Translations: [Hallucinations] 06-20-2024 Episodic Residual codes; unclassified (2 sources) Postmenopausal state; Translations: [Asymptomatic menopausal state] 03-06-2025 Episodic Past or Other Problems Problem Classification Problem Date Documented Date Episodic/Chronic Headache; including migraine (19 sources) Headache; Translations: [Headache] Onset: 10-06-2016 01-28-2024 Episodic Immunizations and screening for infectious disease (1 source) Encounter for screening for human papillomavirus (HPV); Translations: [ENC SCREENING HUMAN PAPILLOMAVIRUS] Onset: 02-19-2022 Episodic Other connective tissue disease (20 sources) Fibromyalgia; Translations: [Fibromyalgia] Onset: 12-01-2013 12-01-2013 Episodic Other connective tissue disease (15 sources) Spasm; Translations: [Other muscle spasm] Onset: 05-04-2017 01-28-2024 Episodic Other connective tissue disease (15 sources) Muscle pain; Translations: [Myalgia, unspecified site] Onset: 01-31-2024 01-31-2024 Episodic Other nervous system disorders (19 sources) Paresthesia; Translations: [Paresthesia of skin] Onset: 01-28-2024 01-28-2024 Episodic Spondylosis; intervertebral disc disorders; other back problems (20 sources) Neck pain; Translations: [Cervicalgia] Onset: 08-06-2009 01-28-2024 Episodic Results Test Name Value Interpretation Reference Range Facility IGP,APTIMA HPV,AGE GDLNon AGE GDLN ACOG TESTING Note . [facility] Comment on above: TESTS RESULT FLAG UN ITS REF RANGE LAB Clinician Provided Cytology Information Source.............Cervix;Endocervix No. of containers..01 ThinPrep Vial Age Algo ACOG Sarah... FLAG LEGEND: L-Low Normal,H-High Normal,LL-Alert Low,HH-Alert High <-Panic Low,>-Panic High,A-Abnormal,AA-Critical Abnormal Performed at: 01 =[address] [id number] Xin Morse MD, HPV APTIMA Negative Negative [facility] Comment on above: This nucleic acid am plification test detects fourteen high- risk HPV types (16,18,31,33,35,39,45,51,52,56,58,59,66,68) without differentiation. Performed at: =[address] [id number] Heel Cementer Machine: Xin Morse MD, Phone: [phone] Performed at: [address] [id number] Heel Cementer Machine: Xin Morse MD, Phone: [phone] IGP, APTIMA HPV, RFX 16/18,45 Note . [facility] Comment on above: TESTS RESULT FLAG UN ITS REF RANGE LAB DIAGNOSIS: 02 NEGATIVE FOR INTRAEPITHELIAL LESION OR MALIGNANCY. CELLULAR CHANGES ASSOCIATED WITH ATROPHY ARE PRESENT. Specimen adequacy: 02 Satisfactory for evaluation. Endocervical component may not be distinguished in cases of atrophy. Performed by: [place], Apron Man ([facility]) . 02 Note: Note 02 The Pap smear is a screening test designed to aid in the detection of premalignant and malignant conditions of the uterine cervix. It is not a diagnostic procedure and should not be used as the sole means of detecting cervical cancer. Both false-positive and false-negative reports do occur. Test Methodology: Note 02 This liquid based ThinPrep(R) pap test was screened with the use of an image guided system. HPV Genotype Reflex Note 02 Criteria not met, HPV Genotype not performed. FLAG LEGEND: L-Low Normal,H-High Normal,LL-Alert Low,HH-Alert High <-Panic Low,>-Panic High,A-Abnormal,AA-Critical Abnormal Performed at: 02 WB [facility] [address] [address] Xin Morse MD, BRUSH-SPATULA CERVIX ENDOCERVIX [facility] No Panel InformationOrdered By: Imcasimiro Hernandez on 01-01-2025 Miscellaneous Pathology Test See comment [facility] Comment on above: See report. Scanned copy available in EMR. Pathology Request for Lab Co rpon 01-01-2025 Pathology Request for Lab Anjali Normal [facility] Comment on above: Order Comment: GI SP ECIMEN Result Comment: See report. Scanned copy available in EMR. PERFORMED BY: [place] [address] PATHOLOGIST SQUARE DANCE CALLER LUIS NEWTON M.D. Performed By: #### P ATH TO [facility] #### [address] US GALLBLADDERon 11-16-2024 US GALLBLADDER EXAM: [...] report is generated using voice recognition reporting ([employer]). On occasion inWebo Technologiescribe erroneously drops words from the report or [...] and draped in the usual sterile fashion. [facility] Main OR Preoperative Recordo n 07-03-2024 Main OR Preoperative Record Main OR Preoperative Record Holding Area Document Type FT Summary Primary Physician: Meenu Luna MD Finalized Date/Time: 07/03/24 08:35:54 Pt. Name: GEM CARRERA/Sex: 1970 Female Med Rec #: [id number] Physician: Meenu Luna MD Financial #: [id number] Pt. Type: O Room/Bed: / Admit/Disch: 07/03/24 07:08:47 - Institution: Case Times Holding FT Pre-Care Text: Verifies consent for planned procedure, identifies individual values and wishes concerning care, includes family members in perioperative teaching Secures patient's records' belongings, and valuables, maintains patient's dignity and privacy, and maintains patient confidentiality Entry 1 In Holding 07/03/24 07:15:00 Outcomes Met? Yes Last Modified By: Fernanda Cody RN 07/03/24 07:34:20 Post-Care Text: The patient participates [...] is liquid lake, has been NPO since. /,RN Finalized By: Fernanda Cody RN Document Signatures Signed By: Fernanda Cody RN 07/03/24 07:35 Fernanda Cody RN 07/03/24 08:35 Normal [facility] Ambulatory Visit Summaryon 0 04-17-2024 Ambulatory Visit Summary Ambulatory Visit Summary GEM CARRERA :1970 Visit Date:04/17/2024 Ambulatory Visit Instructions Your Diagnosis Screen for colon cancer Chronic constipation Bloating Your Care Team Attending Physician - Jeremy HOWELL, Meenu Castro Primary Care Physician - Sarah Pickard CNP [...] for choosing us for your care. Normal [facility] Gastroenterology Office/Clin ic Noteon 04-17-2024 [...] virus vaccine, inactivated 09/06/2016 Recorded Normal [facility] Comment on above: Result Comment: Elec tronically Signed By: Jeremy HOWELL, Meenu Castro\.br\Date and Time Signed: 04/17/24 14:33 EDT MG MAMM SCREEN 3D WILEY CADon 01-20-2023 MG MAMM SCREEN 3D WILEY CAD Patient: GEM CARRERA Exam Date: 01/20/2023 : 1970 Gender:F Ordering : DR ARLEY MILLAN . Admission #: [id number] Family : Order #: [id number] CLICK HERE TO VIEW EXAM RADIOLOGY REPORT PROCEDURE: MAMMOGRAM SCREENING 3D BILATERAL CAD COMPARISON: MG MAMM SCREEN 3D WILEY CAD, 01/06/2022. MG MAMM SCREEN 3D WILEY CAD, 12/10/2020. MG MAMM SCREEN IWLEY W CAD, 10/17/2019. DIGITIZED_MAMMO, 01/22/2009. INDICATIONS: Screening mammography Calculator Name NCI Breast Cancer Risk Assessment Tool 5 Year Breast Cancer Risk 0.70% Lifetime Breast Cancer Risk 5.60% Personal Breast Cancer No Personal Ovarian Cancer No Treatments None Family Cancers Father with lymphoma cancer at age 70. LOCATION: [facility] BREAST COMPOSITION: Heterogeneously dense,which may obscure [...] Davison M.D. on 01/20/2023 at 14:00 Normal [facility] PAP ACOG PANEL 2: 30 to 65on 02-20-2022 . . Normal [facility] Comment on above: Result Comment: Perf ormed at: WB Performed By: #### [id number] #### [facility] [address] [address] [address] Tereza Garber Age Gdln ACOG Testing 30-65 Normal [facility] Comment on above: Performed By: #### [id number] #### [facility] [address] [address] [address] Tereza Garber DIAGNOSIS: Comment Normal [facility] Comment on above: Result Comment: NEGA TIVE FOR INTRAEPITHELIAL LESION OR MALIGNANCY. Performed at: WB Performed By: #### [id number] #### [facility] [address] [address] [address] Tereza Garber HPV Aptima Negative Normal Negative [facility] Comment on above: Result Comment: This nucleic acid amplification test detects fourteen high-risk HPV types (16,18,31,33,35,39,45,51,52,56,58,59,66,68) without differentiation. Performed at: =G Performed By: #### [id number] #### [facility] [address] [address] [address] Tereza Garber Methodology: Comment Normal [facility] Comment on above: Result Comment: This liquid based ThinPrep(R) pap test was screened with the use of an image guided system. Performed at: WB Performed By: #### [id number] #### [facility] [address] [place] [address] Dr. Tereza Garber Note: Comment Normal [facility] Comment on above: Result Comment: The Pap smear is a screening test designed to aid in the detection of premalignant and malignant conditions of the uterine cervix. It is not a diagnostic procedure and should not be used as the sole means of detecting cervical cancer. Both false-positive and false-negative reports do occur. . Performed at: WB Performed By: #### [id number] #### [facility] [address] [place] [address] Dr. Tereza Garber Performed by: Comment Normal [facility] Comment on above: Result Comment: Nataly Bird, Hospice Entrance Attendant (ASCP) Performed at: WB Performed By: #### [id number] #### [facility] [address] [place] [address] Dr. Tereza Garber Specimen adequacy: Comment Normal [facility] Comment on above: Result Comment: Sati sfactory for evaluation. Endocervical and/or squamous metaplastic cells (endocervical component) are present. Performed at: WB Performed By: #### [id number] #### [facility] [address] [place] [address] Dr. Tereza Garber US Pelvic Complete w/Transva [...] by Myrna Sanchez on 09/09/2021 1518 Normal [facility] Efficiency Manager US Pelvic Complete w/Transva ginalon 08-26-2021 US [...] by Arden Reynoso on 08/26/2021 1617 Normal [facility] Specialist Vital Signs Date Time Vital Sign Value Performing Clinician Facility 03-08-2025 13:31-0400 Diastolic blood pressure 90 mm[Hg] Sarah Pickard Work Phone: [facility] 03-08-2025 13:31-0400 Heart rate 77 /min Sarah Pickard Work Phone: [facility] 03-08-2025 13:31-0400 Systolic blood pressure 154 mm[Hg] Sarah Pickard Work Phone: [facility] 03-06-2025 15:12-0400 Body mass index (BMI) [Ratio] 30.94 kg/m2 Zandra Richfield PA Work Phone: [facility] 03-06-2025 15:12-0400 Body weight 81.76 kg Zandra Jacoby PA Work Phone: [facility] 03-06-2025 15:12-0400 Diastolic blood pressure 86 mm[Hg] Zandra Jacoby PA Work Phone: [facility] 03-06-2025 15:12-0400 Systolic blood pressure 122 mm[Hg] Zandra Jacoby PA Work Phone: [facility] 01-01-2025 12:32-0400 Diastolic blood pressure 75 mm[Hg] Sarah Pickard Work Phone: [facility] 01-01-2025 12:32-0400 Heart rate 83 /min Sarah Pickard Work Phone: [facility] 01-01-2025 12:32-0400 Respiratory rate 16 /min Sarah Pickard Work Phone: [facility] 01-01-2025 12:32-0400 SaO2% (BldA) [Mass fraction] 98 % Sarah Pickard Work Phone: [facility] 01-01-2025 12:32-0400 Systolic blood pressure 128 mm[Hg] Sarah Pickard Work Phone: [facility] 01-01-2025 09:12-0400 Body height 162.56 cm Sarah Pickard Work Phone: [facility] 01-01-2025 09:12-0400 Body weight 75.74 kg Sarah Pickard Work Phone: [facility] 12-22-2024 09:22-0400 Body height 162.56 cm Sarah Pickard Work Phone: [facility] 12-22-2024 09:22-0400 Body mass index (BMI) [Ratio] 30 kg/m2 Sarah Pickard Work Phone: [facility] 12-22-2024 09:22-0400 Body weight 79.37 kg Sarah Pickard Work Phone: [facility] 12-22-2024 09:22-0400 Diastolic blood pressure 78 mm[Hg] Sarah Pickard Work Phone: [facility] 12-22-2024 09:22-0400 Heart rate 92 /min Sarah Pickard Work Phone: [facility] 12-22-2024 09:22-0400 SaO2% (BldA) [Mass fraction] 97 % Sarah Pickard Work Phone: [facility] 12-22-2024 09:22-0400 Systolic blood pressure 146 mm[Hg] Sarah Pickard Work Phone: [facility] 12-12-2024 08:59-0400 Body height 162.6 cm Payton Chaparro PA Work Phone: [facility] 12-12-2024 08:59-0400 Body mass index (BMI) [Ratio] 30.38 kg/m2 Payton Chaparro PA Work Phone: [facility] 12-12-2024 08:59-0400 Body weight 80.29 kg Payton Chaparro PA Work Phone: [facility] 12-12-2024 08:59-0400 Diastolic blood pressure 86 mm[Hg] Payton Chaparro PA Work Phone: [facility] 12-12-2024 08:59-0400 Heart rate 84 /min Payton Chaparro PA Work Phone: [facility] 12-12-2024 08:59-0400 Respiratory rate 16 /min Payton Chaparro PA Work Phone: [facility] 12-12-2024 08:59-0400 SaO2% (BldA) [Mass fraction] 94 % aPyton CALLAHAN Work Phone: [facility] 12-12-2024 08:59-0400 Systolic blood pressure 132 mm[Hg] Payton Chaparro PA Work Phone: [facility] 08-28-2024 14:46-0500 Diastolic blood pressure 74 mm[Hg] Eva Demian DO Work Phone: [facility] 08-28-2024 14:46-0500 Systolic blood pressure 122 mm[Hg] Eva Demian DO Work Phone: [facility] 08-14-2024 08:18-0500 Body height 162.6 cm Delfina Gillmor [employer] Work Phone: [facility] 08-14-2024 08:18-0500 Body mass index (BMI) [Ratio] 28.84 kg/m2 Delfina Gillmor [employer] Work Phone: [facility] 08-14-2024 08:18-0500 Body weight 76.2 kg Delfina Gillmor [employer] Work Phone: [facility] 08-14-2024 08:18-0500 Diastolic blood pressure 89 mm[Hg] Delfina Gillmor [employer] Work Phone: [facility] 08-14-2024 08:18-0500 Heart rate 90 /min Delfina Gillmor [employer] Work Phone: [facility] 08-14-2024 08:18-0500 Systolic blood pressure 147 mm[Hg] Delfnia Gillmor [employer] Work Phone: [facility] 07-03-2024 07:20-0500 Blood Pressure Location Meenu Luna [facility] 07-03-2024 07:20-0500 Body temperature 97.88 [degF] Meenu Lnua [facility] 07-03-2024 07:20-0500 Diastolic blood pressure 78 mm[Hg] Mohamad Mouchli [facility] 07-03-2024 07:20-0500 Heart rate 88 /min Mohamad Mouchli [facility] 07-03-2024 07:20-0500 Respiratory rate 35 /min Mohamad Mouchli [facility] 07-03-2024 07:20-0500 SaO2% (BldA) [Mass fraction] 95 % Mohamad Mouchli [facility] 07-03-2024 07:20-0500 Systolic blood pressure 136 mm[Hg] Mohamad Mouchli [facility] 06-20-2024 08:48-0400 Body height 162.56 cm [facility] 06-20-2024 08:48-0400 Body mass index (BMI) [Ratio] 27.8 kg/m2 [facility] 06-20-2024 08:48-0400 Body weight 73.48 kg [facility] 06-20-2024 08:48-0400 Diastolic blood pressure 75 mm[Hg] [facility] 06-20-2024 08:48-0400 Heart rate 71 /min [facility] 06-20-2024 08:48-0400 SaO2% (BldA) [Mass fraction] 99 % [facility] 06-20-2024 08:48-0400 Systolic blood pressure 132 mm[Hg] [facility] 04-17-2024 14:14-0400 Blood Pressure Location Mohamad Mouchli [facility] 04-17-2024 14:14-0400 Diastolic blood pressure 74 mm[Hg] Mohamad Mouchli [facility] 04-17-2024 14:14-0400 Heart rate 89 /min Mohamad Mouchli [facility] 04-17-2024 14:14-0400 Systolic blood pressure 125 mm[Hg] Meenu Luna [facility] Encounters Encounter Date Encounter Type Care Provider Facility Start: 03-08-2025 End: 03-08-2025 ambulatory Sarah Pickard Work Phone: [facility] Work Phone: Start: 03-08-2025 End: 03-08-2025 Patient encounter procedure Eva Thorpe Demian [facility] Work Phone: Start: 03-06-2025 End: 03-06-2025 ambulatory ZANDRA VAUGHN Not Available Start: 03-06-2025 End: 03-06-2025 Patient encounter procedure Zandra CALLAHAN Work Phone: [facility] Start: 03-06-2025 End: 03-06-2025 Periodic preventive med est patient 40-64yrs Zandra CALLAHAN Work Phone: [facility] Comment on above: Well woman exam with routine gynecological exam; Encounter for screening mammogram for malignant neoplasm of breast; Postmenopausal state Start: 03-06-2025 End: 03-06-2025 Bamboo flowsheet Zandra CALLAHAN Work Phone: [facility] Start: 03-06-2025 End: 03-09-2025 Bamboo flowsheet Zandra CALLAHAN Work Phone: [facility] Start: 03-06-2025 End: 03-09-2025 Clinisync Result Encounter Zandra CALLAHAN Work Phone: [facility] Unsolicited Start: 01-09-2025 Non-patient / Non-visit Zandra bautista [facility] Work Phone: Start: 01-01-2025 Non-patient / Non-visit Madison Pickard [facility] Work Phone: Start: 01-01-2025 End: 01-01-2025 Admission to same day surgery center Sarah Neeraj Work Phone: [facility] Work Phone: Start: 01-01-2025 End: 01-01-[address] Pickard Work Phone: [facility] Work Phone: Start: 12-22-2024 End: 12-22-[address] Pickard Work Phone: [facility] Work Phone: Start: 12-22-2024 End: 12-22-2024 Patient encounter procedure Sarah Pickard Work Phone: [facility] Work Phone: Start: 12-12-2024 End: 12-12-2024 Bamboo flowsheet Payton CALLAHAN Work Phone: [facility] Start: 12-12-2024 End: 12-12-2024 Bamboo flowsheet Payton CALLAHAN Work Phone: [facility] Start: 12-12-2024 End: 12-12-2024 Office outpatient visit 25 minutes Payton CALLAHAN Work Phone: [facility] Comment on above: Carpal tunnel syndro me of left wrist (Primary Dx); Nonintractable headache, unspecified chronicity pattern, unspecified headache type; Carpal tunnel syndrome of right wrist; Paresthesia of skin Start: 12-12-2024 End: 12-12-2024 ambulatory PAYTON CHAPARRO Not Available Start: 11-16-2024 End: 11-16-2024 ambulatory ZANDRA GIBBONS Not Available Start: 10-30-2024 End: 11-09-2024 Pre-admission assessment Zandra Gibbons [facility] Start: 10-19-2024 Non-patient / Non-visit Madison Pickard Work Phone: [facility] Work Phone: Start: 10-17-2024 End: 10-17-2024 Bambonaseem flowsvalorie Leiva MD Work Phone: [facility] Start: 10-17-2024 End: 10-17-2024 Bamboo flowsvalorie Leiva MD Work Phone: [facility] Start: 10-17-2024 End: 10-17-2024 Office outpatient visit 15 minutes Vicky Leiva MD Work Phone: [facility] Comment on above: Lipoma of right lowe r extremity (Primary Dx); Melanocytic nevus of trunk; Lentigines; Capillary angioma; Lichenoid keratosis; Seborrheic keratosis Start: 10-17-2024 End: 10-17-2024 ambulatory VICKY LEIVA Not Available Start: 10-16-2024 End: 10-16-2024 Patient encounter procedure Sarah Pickard Work Phone: [facility] Work Phone: Start: 10-16-2024 End: 10-16-2024 ambulatory Sarah Pickard Work Phone: [facility] Work Phone: Start: 08-28-2024 End: 08-28-2024 Clinical Support Eva Santa DO Work Phone: [facility] Comment on above: Bilateral carpal beni pedro luis syndrome (Primary Dx) Start: 08-28-2024 End: 08-28-2024 Bamboo flowsheet Eva Santa DO Work Phone: [facility] Start: 08-28-2024 End: 08-28-2024 Bamboo flowsheet Eva Santa DO Work Phone: [facility] Start: 08-14-2024 End: 08-14-2024 Bamboo flowsheet Delfina Schofield NP Work Phone: [facility] Start: 08-14-2024 End: 08-14-2024 Bamboo flowsheet Delfina Schofield [employer] Work Phone: [facility] Start: 08-14-2024 End: 08-14-2024 Office outpatient visit 25 minutes Delfina Schofield [employer] Work Phone: [facility] Comment on above: Carpal tunnel syndro me of left wrist (Primary Dx); Nonintractable headache, unspecified chronicity pattern, unspecified headache type; Carpal tunnel syndrome of right wrist; Paresthesia of skin Start: 08-14-2024 End: 08-14-2024 ambulatory DELFINA SCHOFIELD Not Available Start: 07-03-2024 End: 07-03-2024 ambulatory Meenu Luna [facility] Start: 07-03-2024 End: 07-03-2024 Patient encounter procedure Meenu Luna [facility] Start: 06-20-2024 End: 06-20-2024 ambulatory [facility] Work Phone: Start: 06-20-2024 End: 06-20-2024 Patient encounter procedure [facility] Work Phone: Start: 04-17-2024 End: 04-17-2024 ambulatory [facility] Start: 04-17-2024 End: 04-17-2024 Patient encounter procedure Meenu Luna [facility] Start: 03-09-2024 ambulatory Meenu Luna Facilit y:Shy Start: 01-20-[address] ARLEY MILLAN . Facili ty:[facility] Start: 02-17-2022 End: 02-17-[address] ARLEY MILLAN . Facility: Start: 05-09-2014 End: 05-09-2014 Telephone encounter Sushil Thorpe (Hist) Joann Work Phone: Neurology Procedures Date Procedure Procedure Detail Performing Clinician Start: 03-06-2025 IGP,APTIMA HPV,AGE GDLN Zandra Jacoby PA Work Phone: Start: 01-01-2025 Esophagogastroduodenoscopy Sarah Pickard Work Phone: Start: 01-01-2025 Esophagogastroduodenoscopy Sarah Pickard Work Phone: Start: 08-28-2024 Injection therapeutic carpal tunnel Eva Santa DO Work Phone: Start: 02-07-2024 Mammography Delfina Schofield [employer] Work Phone: Start: 04-02-2023 Microscopic observation [Identifier] in Cervix by Cyto stain Delfina Schofield NP Work Phone: Colonoscopy Meenu Luna Comment on above: 2012- Dr Morgan Plan of Treatment Date Care Activity Detail Author Start: 04-02-2028 [facility] Start: 03-14-2026 End: 03-14-2026 Patient encounter procedure 03/14/2026 8:30 AM EDT Procedure Visit [facility] [address] [address] Arley Millan, DO [address] [place], [place] [id number] [facility] Start: 04-24-2025 End: 04-24-2025 Patient encounter procedure 04/24/2025 8:35 AM EDT Office Visit [facility] [address] [place] [address] Vicky Leiva MD [address] [place] [address] [facility] Start: 04-23-2025 Influenza vaccination Influenza Vacc ine (#1) [facility] Start: 03-06-2025 End: 03-06-2026 DXA Skeletal system Views for bone density DEXA bone density Imaging Routine Postmenopausal state Expected: 03/06/2025 (Approximate), Expires: 03/06/2026 [facility] Comment on above: Expected: 03/06/2025 (Approximate), Expires: 03/06/2026 Start: 03-06-2025 End: 05-07-2026 MG Breast - bilateral Screening Bilateral screening mammogram Imaging Routine Encounter for screening mammogram for malignant neoplasm of breast Expected: 03/06/2025, Expires: 05/07/2026 [facility] Work Phone: Comment on above: Expected: 03/06/2025 , Expires: 05/07/2026 Start: 02-06-2025 Screening for malign ant neoplasm of breast Mammogram [facility] Start: 02-06-2025 End: 02-06-2025 Patient encounter procedure 02/06/2025 8:20 AM EDT Office Visit [facility] [address] [place] [address] Payton Chaparro PA [address] [place] [address] [facility] Start: 01-01-2025 [facility] Start: 12-12-2024 End: 12-12-2024 Patient encounter procedure 12/12/2024 9:00 AM EDT Office Visit [facility] [address] [place] [address] Payton Chaparro PA [address] [place] [address] Arrived [facility] Comment on above: Arrived Start: 11-06-2024 End: 11-06-2024 Patient encounter procedure [facility] [address] Start: 10-17-2024 End: 10-17-2024 Patient encounter procedure 10/17/2024 8:50 AM EST Office Visit [facility] [address] [place] [address] Vicky Leiva MD [address] [facility] [place] [address] Arrived [facility] Comment on above: Arrived Start: 09-26-2024 End: 09-26-2024 Clinical Support 09/26/2024 1:45 PM EST Clinical Support [facility] [address] [place] [address] Eva Santa, DO [address] [place] [address] [facility] Start: 08-28-2024 End: 08-28-2024 Clinical Support 08/28/2024 2:45 PM EST Clinical Support [facility] [address] [place] [address] Eva Santa, DO [address] [place] [address] Arrived [facility] Comment on above: Arrived Start: 08-14-2024 End: 08-14-2024 Patient encounter procedure 08/14/2024 8:20 AM EST [facility] [place] [address] [place] [address] Delfina Schofield, [employer] [address] [place], [place] Arrived [facility] [place] [address] Comment on above: Arrived Start: 04-23-2024 Influenza vaccination Influenza Vacc ine (#1) [facility] Start: 04-23-2021 Influenza vaccination INFLUENZA (Sea son Ended) [facility] Start: 2018 Screening for malign ant neoplasm of colon [facility] Start: 2018 SHINGRIX VACCINE (1 of 2) SHINGRIX VACCINE (1 of 2) [facility] Start: 2013 DIABETES SCREEN DIABETES SCREEN [facility] Start: 2013 LIPID SCREEN LIPID SCREEN [facility] Start: 2008 Mammography MAMMOGRAM [facility] Start: 1998 HPV TESTING HPV TESTING [facility] Start: 1989 PAP TESTING PAP TESTING [facility] Start: 1987 Urine microalbumin profile DTAP,TDAP,TD (1 - Tdap) [facility] Start: 1986 HEPATITIS C SCREENING HEPATITIS C SC HANNAH [facility] Start: 1986 HIV SCREENING HIV SCREENING [facility] Start: 1980 Adult depression screening assessment DEPRESSION SCREENING [facility] Start: 1968 Screening for malign ant neoplasm of colon [facility] Patient Education Hemorrhoids Co lilian polyps Gastritis - Discharge instructions [facility] Work Phone: THIN PREP TIS PAP AN D HR HPV DNA THIN PREP TIS PAP AND HR HPV DNA Pathology and Cytology Routine Well woman exam with routine gynecological exam Ordered: 03/06/2025 [facility] Comment on above: Ordered: 03/06/2025 [facility] Immunizations Immunization Date Immunization Notes Care Provider Keysha valle 06-24-2024 influenza virus vaccine, unspecified formulation Delfina Schofield NP Work Phone: [facility] 05-29-2023 influenza virus vaccine, unspecified formulation Mohamad Mouchli [facility] 02-21-2023 tetanus toxoid, reduced diphtheria toxoid, and acellular pertussis vaccine, adsorbed Mohamad Mouchli [facility] 06-10-2022 influenza virus vaccine, unspecified formulation Mohamad Mouchli [facility] 08-29-2021 SARS-CoV-2 (COVID-19 ) mRNA BNT-162b2 vax Mohamad Mouchli [facility] 07-05-2021 influenza virus vaccine, unspecified formulation Mohamad Mouchli [facility] 12-30-2020 SARS-CoV-2 (COVID-19 ) mRNA BNT-162b2 vax Mohamad Mouchli [facility] 12-09-2020 SARS-CoV-2 (COVID-19 ) mRNA BNT-162b2 vax Mohamad Mouchli [facility] 06-03-2020 influenza virus vaccine, unspecified formulation Mohamad Mouchli [facility] 08-19-2019 zoster vaccine recombinant Mohamad Mouchli [facility] 06-07-2019 influenza virus vaccine, unspecified formulation Mohamad Mouchli [facility] 06-07-2019 zoster vaccine recombinant Mohamad Mouchli [facility] 06-02-2018 influenza virus vaccine, unspecified formulation Mohamad Mouchli [facility] 06-13-2017 influenza virus vaccine, unspecified formulation Mohamad Mouchli [facility] 09-06-2016 influenza virus vaccine, unspecified formulation Mohamad Mouchli [facility] NEGATED: Highlighted row has not occurred!04-17-2024 influenza virus vaccine, unspecified formulation Mohamad Mouchli [facility] Payers Date Payer Category Payer Unknown [id number] 2024 Self-pay [id number] 2023 [facility] er [id number] 2023 Unknown [id number] 2021 Managed Care O (unspecified) [employer] [id number] 2013 Unknown HOSPITAL/MEDICAL GENERIC MEDICAL GENERIC [id number] 2013-2014 Indemnity [id number] 2013 Unknown MMO [employer]ZZM[employer] SUPER MED PLUS [id number] 2013-2019 PPO [id number] 1968 Unknown [id number] [id number]. 2.593 1968 Unknown [id number] 2.16.840.1.986163.3.579. 2.593 1968 Unknown [id number] 2.16.840.1.356140.3.579. 2.727 1968 Unknown [id number] 2.16.840.1.263754.3.579. 2.727 1968 Unknown [id number] [id number]. 2.727 1968 Unknown [id number] 2.16.840.1.995439.3.579. 2.1259 1968 Unknown [id number] [id number]. 2.1259 1968 Unknown [id number] 2.16.840.1.624424.3.579. 2.125 1968 Unknown [id number] 2.16.840.1.917862.3.579. 2.9 1968 Unknown [id number] 2.16.840.1.954523.3.579. 2.1258 1968 Unknown [id number] [id number]. 2.1259 1959 Private Health Insurance [id number] Unknown [facility] [id number] Unknown Regular Insurance [id number] Unknown [id number] [id number]. 2.531 Unknown [id number]. 2.531 Social History Date Type Detail [facility] Start: 1970 Sex Assigned At Not on file C [facility] Start: 01-31-2024 End: 04-17-2024 Tobacco smoking status Never smoked tobacco (finding) [facility] Tobacco smoking status Never [facility] Start: 01-28-2024 End: 12-12-2024 Sex Assigned At Female [facility] Start: 1970 Sex Assigned At Female F [facility] Start: 01-31-2024 Tobacco use and exposure Smoke less tobacco non-user [facility] Start: 01-31-2024 End: 03-06-2025 Alcoholic beverage intake Current drinker of alcohol (finding) [facility] Start: 01-31-2024 End: 12-12-2024 Alcoholic beverage [...] occasion? Never [facility] Work Phone: Start: 10-17-2024 End: 01-01-2025 Sex Female (finding) [facility] Sexual Orientation [facility] Goals Date Patient Goal Desired Activity /State Functional Status Date Assessment Result Facility 07-03-2024 Functional Status N/A [facility] 04-17-2024 Functional Status N/A [facility] Clinical Notes 05-09-2014 to 03-06-2025 LONDON Dawson - 03/06/2025 3:00 PM EDT Note Date & Type Note Facility 03-06-2025 History of Presen t illness Narrative Reason for Appointment: Patient ID: Gem Carrera is a 54 y.o. female who presents for Well Women Visit Patient presents today for Annual Exam. MEDICATIONS Current Outpatient Medications Medication Instructions amitriptyline (ELAVIL) 75 mg, Oral, Nightly cholecalciferol (VITAMIN D-3) 1,000 Units, Daily RT Cyanocobalamin (Vitamin B 12) 100 MCG lozenge Orally cyclobenzaprine (Flexeril) 5 MG tablet TAKE 1 & 1/2 (ONE & ONE-HALF) TABLETS BY MOUTH TWICE DAILY NEEDED FOR MUSCLE SPASMS fexofenadine (Lexi Allergy) 60 MG tablet Take by mouth MAGNESIUM PO 2 times daily omeprazole (PRILOSEC) 40 mg, Daily before breakfast Prasterone, DHEA, 10 MG capsule Orally SUMAtriptan (Imitrex) 100 MG tablet TAKE 1 TABLET BY MOUOTH AT ONSET OF MIGRAINE, MAY REPEAT AFTER 2 HOURS NEEDED, MAX 2 PER DAY 2 DAYS A WEEK NEEDED FOR MIGRAINE triamcinolone (Nasacort Allergy 24HR) 55 MCG/ACT nasal inhaler [place] 2 sprays every day by intranasal route. ALLERGIES Allergies Allergen Reactions Clarithromycin Unknown and Hives tachycardia, chest/back burning, htn Other Reaction(s): Intolerance tachycardia, chest/back burning, htn Sulfa Antibiotics GI intolerance, Unknown and Hives tachycardia, chest/back burning pain, indigestion, htn Topiramate Other PROBLEMS Active Ambulatory Problems Diagnosis Date Noted Cervicalgia 05/04/2017 Fibromyalgia 05/04/2017 Headache 10/06/2016 Variants of migraine 10/06/2016 Common migraine 10/06/2016 Carpal tunnel syndrome 08/06/2009 Muscle spasm 05/04/2017 Tension headache 10/06/2016 Radiculopathy, lumbosacral region 08/06/2009 Primary insomnia 01/28/2024 Paresthesia of skin 01/28/2024 Carpal tunnel syndrome of left wrist 01/28/2024 Carpal tunnel syndrome of right wrist 01/28/2024 Myalgia 01/31/2024 Resolved Ambulatory Problems Diagnosis Date Noted No Resolved Ambulatory Problems Past Medical History: Diagnosis Date Cyst of left ovary Fibromyalgia, primary High cholesterol Migraines Nontoxic single thyroid nodule Screening mammogram for breast cancer 01/20/2023 Seasonal allergies Vitamin D deficiency HISTORY PAST MEDICAL HISTORY SOCIAL HISTORY Past Medical History: Diagnosis Date Carpal tunnel syndrome 08/06/2009 Cervicalgia 05/04/2017 Common migraine 10/06/2016 Cyst of left ovary complex Fibromyalgia 05/04/2017 Fibromyalgia, primary Headache 10/06/2016 High cholesterol Migraines Muscle spasm 05/04/2017 Nontoxic single thyroid nodule Radiculopathy, lumbosacral region 08/06/2009 Screening mammogram for breast cancer 01/20/2023 neg Seasonal allergies Tension headache 10/06/2016 Variants of migraine 10/06/2016 not elsewhere classified; without mention of intractable migraine without mention of status migrainosus; without mention of refractory migraine without mention of status migrainosus Vitamin D deficiency Social History Tobacco Use Smoking status: Never Smokeless tobacco: Never Substance Use Topics Alcohol use: Yes Alcohol/week: 2.0 standard drinks of alcohol Types: 2 Shots of liquor per week Drug use: Never FAMILY HISTORY Family History Problem Relation Name Age of Onset Arthritis Mother Caitlyn Galvan Diabetes Mother Caitlyn Galvan Migraines Mother Caitlyn Galvan Stroke Mother Caitlyn Galvan Polymyalgia rheumatica Mother Caitlyn Galvan Hypertension Father Cancer Father Melanoma Sister SURGICAL HISTORY Past Surgical History: Procedure Laterality Date DILATION AND CURETTAGE DILATION AND CURETTAGE OF UTERUS 07/02/2023 HYSTEROSCOPY 07/02/2023 PAP SMEAR 01/13/2021 WNL SEPTOPLASTY 01/08/2017 SMR inferior turbinates TONSILLECTOMY REVIEW OF SYSTEMS Review of Systems: Review of Systems Constitutional: Negative. HENT: Negative. Eyes: Negative. Respiratory: Negative. Cardiovascular: Negative. Gastrointestinal: Negative. Genitourinary: Negative. Musculoskeletal: Negative. Skin: Negative. Neurological: Negative. All other systems reviewed and are negative. Hematological: Negative. Endocrine: Negative. Allergic/Immunologic: Negative. OBJECTIVE Objective: Physical Exam Constitutional: Appearance: Normal appearance. She is well-developed. Genitourinary: Vulva normal. Right Adnexa: not tender and no mass present. Left Adnexa: not tender and no mass present. No cervical discharge. Breasts: Breasts are soft. Right: Normal. Left: Normal. HENT: Head: Normocephalic. Nose: Nose normal. Mouth/Throat: Mouth: Mucous membranes are moist. Cardiovascular: Rate and Rhythm: Normal rate and regular rhythm. Pulmonary: Effort: Pulmonary effort is normal. Breath sounds: Normal breath sounds. Abdominal: General: Bowel sounds are normal. There is no distension. Palpations: Abdomen is soft. Tenderness: There is no abdominal tenderness. There is no guarding or rebound. Musculoskeletal: General: No swelling. Normal range of motion. Cervical back: Normal range of motion. Right lower leg: No edema. Left lower leg: No edema. Neurological: General: No focal deficit present. Mental Status: She is alert and oriented to person, place, and time. Skin: General: Skin is warm and dry. Psychiatric: Mood and Affect: Mood normal. Behavior: Behavior normal. Vitals and nursing note reviewed. Exam conducted with a agriculture instructor present. Vitals: Estimated body mass index is 30.94 kg/m as calculated from the following: Height as of 12/12/24: 5' 4 . Weight as of this encounter: 180 lb 4 oz. BP: 122/86 No LMP recorded. Patient is premenopausal. ASSESSMENT & PLAN ICD-10-CM 1. Well woman exam with routine gynecological exam Z01.419 THIN PREP TIS PAP AND HR HPV DNA 2. Encounter for screening mammogram for malignant neoplasm of breast Z12.31 Bilateral screening mammogram Bilateral screening mammogram 3. Postmenopausal state Z78.0 DEXA bone density Annual Exam: Patient presents today for an annual exam. Patient states she is doing well and has no complaints. Pap was obtained without difficulty. Pt concerned about weight gain. Adipex was discussed. Pt to schedule appointment for weight loss management. Orders Placed This Encounter Procedures Bilateral screening mammogram DEXA bone density Patient wishes to try adipex in future for weight loss, she will schedule for this in near future, she had been on semiglutide in past and states gained some weight back post stopping Follow Up: Patient is to return in one year for annual unless needed otherwise. Documented by Teresa Le MA on behalf of: LONDON Dawson documented in this encounter [facility] 01-01-2025 History and physi prieto note [facility] 01-01-2025 Procedure note [facility] enter 12-22-2024 Evaluation note Diagnosis Onset Date [...] Sleep apnea acute December 22, 2024 8:58am [facility] Work Phone: 1(495) 548-566005-01-2025 History and physical note Author Walter Hernandez [facility] Note Date/Time January 01, 2025 12:43 pm [facility] [address] [place], [place] [id number] Gastroenterology H&P Signed Patient: Gem Carrera MR#: [id number] : 1970 Acct:[id number] Age/Sex: 54 / F Adm Date: 5 Loc: Room: Type: [facility] Attending Dr: Walter Hernandez MD Copies to: [...] signed by Walter Hernandez MD> 01/01/25 1110 [facility] Work Phone: 1(475) 148-744804-22-2025 History of Present illness Narrative* LONDON Nagy [...] to clinic: 2 months [id number] History of Present illness Narrative* Vicky Leiva [...] 1 year skin check documented in this encounter[id number] History of Present illness Narrative* Eva Santa [...] symptoms. Assessment Carpal tunnel syndrome Procedure Codes 98648 X1 -50 Ther Injection, Carp Tunnel S0020 x1 INJ Marcaine 50 ML Follow Up as previously documented in this encounterC[id number] History of Present illness Narrative* Delfina Schofield [...] after carpal tunnel injections documented in this encounterCox [id number] Evaluation + Plan note Extracted from: Title:ANES Pre-operative Note 2022 Author:Alfonso Winston Date:07/03/24 Plan [place] [employer] (ASA) physical status classification: Class II. Anesthetic Preoperative Plan: Anesthesia General. [facility] [id number] NoteProgress Note-Physician Patient: GEM CARRERA Age: 54 [...] week., # 527 gm, Refills(s) 0, Pharmacy: [facility] [id number], 162, cm, 08/04/22 9:39:00 EST, [...] list: All Problems Bloating / SNOMED CT 289709639 / Confirmed Chronic constipation / SNOMED CT 322794937 / Confirmed Fibromyalgia / ICD-9-CM 729.1 / Confirmed MIGRAINE / ICD-9-CM 346 / Confirmed Resolved: high cholesterol / SNOMED CT 52163090, Active Problems (4) Bloating Chronic constipation Fibromyalgia MIGRAINE Histories Past Medical History: Active Fibromyalgia (729.1) MIGRAINE (346) Resolved high cholesterol (43280616): Resolved. Family History: Non-Hodgkin lymphoma Father Procedure history: Colonoscopy (063041272). Comments: 04/17/2024 14:15 BOSSMAN - Soraya Ortiz- [...] review: No qualifying data available . Plan [place] [employer]hes[employer] (ASA) physical status classification: Class II. Anesthetic Preoperative Plan: Anesthesia General.[facility] Comment on above:Result Comment: Electronically Signed By: Irving HOWELL, Alfonso Cheek\.br\Date and Time Signed: 07/03/24 08:24 [id number] Miscellaneous Notes* Telephone Encounter - Ruthie Ann - 05/09/2014 2:18 PM EDT Patient called and is wondering if you still have her records she brought into her visit. If you dolet us know and we will mail them back to her. 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 Sleep apnea acute [facility] Work Phone: Evaluation note* Diagnosis Carpal tunnel syndrome of left wrist- Primary Nonintractable headache, unspecified chronicity pattern, unspecified headache type Carpal tunnel syndrome of right wrist Paresthesia of skin documented in this encounter [facility] Healthcare[facility] note* Diagnosis Bilateral carpal tunnel syndrome- Primary Carpal tunnel syndrome documented in this encounter [facility] HealthcareEvaluation noteNo assessment information availablePremier [facility] Work Phone: Evaluation note* Diagnosis Lipoma of right lower extremity- Primary Melanocytic nevus of trunk Benign neoplasm of skin of trunk, except scrotum Lentigines Capillary angioma Nevus, non-neoplastic Lichenoid keratosis Seborrheic keratosis documented in this encounter [facility] HealthcareEvaluation note* Diagnosis Carpal tunnel syndrome of left wrist- Primary Nonintractable headache, unspecified chronicity pattern, unspecified headache type Carpal tunnel syndrome of right wrist Paresthesia of skin documented in this encounter [facility] HealthcareEvaluation note* Diagnosis Onset Date Resolution [...] Sleep apnea acute December 22, 2024 8:58am [facility] Work Phone: Evaluation note* Diagnosis Well woman exam with routine gynecological exam Routine gynecological examination Encounter for screening mammogram for malignant neoplasm of breast Postmenopausal state Asymptomatic postmenopausal status (age-related) (natural) documented in this encounter [facility] HealthcareHospital course Narrative No data available for this section [facility] Hospital Discharge instructions No data available for this section [facility] Hospital Discharge instructions Additional Instructions [...] based on polyp pathology - Office number [phone]. [facility] Work Phone: Progress note No data available for this section [facility] Reason for referral (narrative)No reason for referral information availableDayton [facility]opathic [facility] Work Phone: Summary Purpose Family History No Family History Records Found Relationship Condition Age at Onset Recorded Date/T karina mother Hypertension Unknown Cerebrovascular accident (CVA) Unknown father Non-Hodgkin lymphoma Unknown brother Diabetes mellitus Unknown Advance Directives No Advanced Directives Records Found Advance Directive Response Recorded Date/ Time Advance [...] GERD, Screening January 01, 2025 11:10 am Chief Complaint Admit Date KISHORDecember 22, 2024 8:58am GERD, Screening January 01, 2025 8:56a m GERD, Screening January 01, 2025 11:10 am Amb Documentation January 09, 2025 8:55a m Additional Source Comments Source Comments (unrecognize d section and content) In the event this informatio n is protected by the Federal Confidentiality of Alcohol and Drug Abuse Patient Records regulations: The Federal rules restrict any use of the information to criminally investigate or prosecute any alcohol or drug abuse patient.[facility] INFORMATION SOURCE (unrecogn ized section and content) DATE CREATED AUTHOR 09/10/2021 [facility] dical Specialist DATE CREATED AUTHOR AUTHOR'S ORGANIZ ATION 01/29/2023 [facility] DATE CREATED AUTHOR AUTHOR'S ORGANIZ ATION 07/09/[address] [facility] DATE CREATED AUTHOR AUTHOR'S ORGANIZ ATION 01/10/2025 [facility] DATE CREATED AUTHOR AUTHOR'S ORGANIZ ATION 03/10/2025 [facility] dical Specialists EPIC Patient Care team informatio n (unrecognized section and content) Team Status: Active Member Role Status Dates Sarah Pickard Primary Care Provider Active Team Status: Inactive Member Role Status Dates Sarah Pickard Primary Care Provider Active Star t: June 20, 2024 End: June 20, 2024 Shivam Moore MD Attending Provider Active S tart: June 20, 2024 End: June 20, 2024 Hospital Cleaner Relationship Specialty Start Date End Date Sarah Pickard NP [address] [place] [phone] Referring Physician Family Medicine 01/31/24 Eva Santa DO [address] [place] [address] Referring Physician Neurology 08/14/24 Hospital Cleaner Relationship Specialty Start Date End Date Sarah Pickard NP [address] [place] [address] Referring Physician Family Medicine 01/31/24 Eva Santa DO [address] [place] [address] Referring Physician Neurology 08/14/24 Hospital Cleaner Relationship Specialty Start Date End Date Sarah Pickard NP [address] [place] [address] Referring Physician Family Medicine 01/31/24 Eva Santa DO [address] [place] [address] Referring Physician Neurology 08/14/24 Hospital Cleaner Relationship Specialty Start Date End Date Sarah Pickard NP [address] [place] [address] Referring Physician Family Medicine 01/31/24 Eva Santa DO [address] [place] [address] Referring Physician Neurology 08/14/24 Team Status: Inactive Member Role Status Dates Sarah Pickard Primary Care Provider Active Star t: October 16, 2024 End: October 16, 2024 Shivam Moore MD Attending Provider Active S tart: October 16, 2024 End: October 16, 2024 Hospital Cleaner Relationship Specialty Start Date End Date Sarah Pickard NP [address] [place] [place] [address] Referring Physician Family Medicine 01/31/24 Eva Santa DO [address] [place] [address] Referring Physician Neurology 08/14/24 Hospital Cleaner Relationship Specialty Start Date End Date Sarah Pickard NP [address] [place] [address] Referring Physician Family Medicine 01/31/24 Eva Santa DO [address] [place] [address] Referring Physician Neurology 08/14/24 Team Status: Active Member Role Status Dates Sarah Lane Pickard Primary Care Provider Active Star t: [...] Status: Active Member Role Status Dates Sarah Lane Pickard Primary Care Provider Active Star t: January 01, 2025 Walter Hernandez MD Attending Provider, Other Provider Act nina Start: January 01, 2025 Hospital Cleaner Relationship Specialty Start Date End Date Sarah Pickard NP [address] [place] [address] Referring Physician Family Medicine 01/31/24 Eva Santa DO [address] [place] [address] Referring Physician Neurology 08/14/24 Hospital Cleaner Relationship Specialty Start Date End Date Sarah Pickard NP [address] [place] [address] Referring Physician Family Medicine 01/31/24 Eva Santa DO [address] [place] [address] Referring Physician Neurology 08/14/24 Team Status: Active Member Role Status Dates Sarah L Pickard Primary Care Provider Active Star t: January 01, 2025 Walter Hernandez MD Attending Provider Active Start: January 01, 2025 Walter Hernandez MD Other Provider Active Start: January 01, 2025 Team Status: Active Member Role Status Dates Sarah Pickard Primary Care Provider Active Star t: January 09, 2025 Zandra Hernandez CMA Attending Provider Active St art: January 09, 2025 Team Status: Inactive Member Role Status Dates Sarah Pickard Primary Care Provider Active Star t: March 08, 2025 End: March 08, 2025 Eva Santa DO Attending Provider Active Sta rt: March 08, 2025 End: March 08, 2025 Goals (unrecognized section and content) Goals may be documented in a n alternate section Reason for Visit (unrecogniz ed section and content) Reason Comments Migraine Neck Pain Reason Comments Skin Check Reason Comments Carpal Tunnel Reason Comments Well Women Visit FOR RECORDS PERTAINING TO PATIENTS WHO ARE [...] BE BASED ON THE PRIMARY CLINICAL RECORDS. [employer] provides no warranty or guarantee of the accuracy or completeness of information in this document.
== END 2025-03-14 07:00 | disposition home or self-care (01) ==
LOC: MAMMO 06:59
PROVIDERS: Visit Provider Obstetrics & Gynecology
DX: Z12.31 Encounter for screening mammogram for malignant neoplasm of breast (principal); Z80.7 Family history of other malignant neoplasms of lymphoid, hematopoietic and related tissues
CPT/HCPCS: 77063; 77067